=== PATIENT | male | born 1945 | race Caucasian/White ===

== ENCOUNTER → 2018-06-04 | Outpatient (CLI) | payer MEDICARE, OTHER ==
[2018-06-04 16:55] VITALS: BP 122/61
== END | disposition home or self-care (01) ==
LOC: Rad HDHVI 13:12
PROVIDERS: ATTEND Internal Medicine Cardiovascular Disease
DX: I08.1 Rheumatic disorders of both mitral and tricuspid valves (principal); J90 Pleural effusion, not elsewhere classified; I27.21 Secondary pulmonary arterial hypertension; I11.0 Hypertensive heart disease with heart failure; I50.33 Acute on chronic diastolic (congestive) heart failure; I48.0 Paroxysmal atrial fibrillation; I25.10 Atherosclerotic heart disease of native coronary artery without angina pectoris; R04.2 Hemoptysis; I31.3 Pericardial effusion (noninflammatory)
CPT/HCPCS: 70491; 85610; 93306; 93701; 94618; G0463

== ENCOUNTER → 2018-06-05 | Outpatient (CLI) | payer MEDICARE, OTHER ==
[2018-06-05 10:00] VITALS: BP 140/60
[2018-06-05 10:30] VITALS: BP 120/64
[2018-06-05 12:35] LABS: Hematocrit 28.1 % (41.0-53.0); Hemoglobin 9.2 g/dL (13.5-17.5); Mean Corpuscular Hemoglobin 31.4 pg (28.0-32.0); Mean Corpuscular Hgb Conc. 32.8 g/dL (32.0-36.0); Mean Corpuscular Volume 95.7 fL (80.0-100.0); Platelet Count (auto) 268 10^3/uL (140-450); Red Blood Cells 2.94 10^6/uL (4.5-5.90); White Blood Cell 14.9 10^3/uL (4.4-10.8)
[2018-06-05 12:49] LABS: Basophils % (manual) 0 (0.0-2.0); Blast Cells 0; INR 1.21 (0.9-1.15); Metamyelocytes % 0; Myelocytes % 0; Partial Thromboplastin Time 38.1 sec (23.78-33.04); Promyelocytes % 0; Prothrombin Time 12.8 sec (9.27-12.13); Reactive Lymphocytes 0; Red Cell Distribution Width 21.1 % (11.8-14.3)
[2018-06-05 12:59] LABS: Albumin 3.8 g/dL (3.4-5.0); BUN/Creatinine Ratio 32.6; Bilirubin, Total 0.8 mg/dL (0.2-1.0); Calcium 9.2 mg/dL (8.5-10.1); Magnesium 2.5 mg/dL (1.6-2.6); Potassium 5.3 mmol/L (3.5-5.1); Total Protein 8.5 g/dL (6.4-8.2)
[2018-06-05 14:26] LABS: Band Neutrophils % (manual) 2; Eosinophils % (manual) 1 (0-7); Lymphocytes % (manual) 15 (10.0-50.0); Monocytes % (manual) 6 (0-12)
== END | disposition home or self-care (01) ==
LOC: CHF HDHVI 10:00
PROVIDERS: ATTEND Internal Medicine Cardiovascular Disease
DX: I11.0 Hypertensive heart disease with heart failure (principal); I50.23 Acute on chronic systolic (congestive) heart failure; C15.9 Malignant neoplasm of esophagus, unspecified; I25.10 Atherosclerotic heart disease of native coronary artery without angina pectoris; K92.2 Gastrointestinal hemorrhage, unspecified; J90 Pleural effusion, not elsewhere classified; I70.0 Atherosclerosis of aorta; I48.91 Unspecified atrial fibrillation; I27.21 Secondary pulmonary arterial hypertension; E11.9 Type 2 diabetes mellitus without complications; E83.40 Disorders of magnesium metabolism, unspecified; R79.1 Abnormal coagulation profile; R60.9 Edema, unspecified; D64.9 Anemia, unspecified
CPT/HCPCS: 36415; 71046; 80053; 82306; 83036; 83735; 83880; 85007; 85027; 85610; 85730; G0463

== ENCOUNTER → 2018-06-13 | Outpatient (CLI) | payer MEDICARE, OTHER ==
[2018-06-13] VITALS (9 sets, daily range): BP systolic 112–135; BP diastolic 55–69
[~2018-06-13] MED LIST: ALBU0.08 INH; ALBUAER3 IN; ALPR1TAB2 PO; CITA-77 PO; CYANOCOBALAMIN (B-12) 1000 MCG/1 ML VIAL IM ONE; CYANOCOBALAMIN (B-12) 1000 MCG/1 ML VIAL ONE; DOBUTamine 1000MCG/ML 250 ML IV ONE; METO-158 PO; METO25TA5 PO; MULTTAB PO; OMEP20TA PO; POM; PRAV20TA3 PO; RIVA20TA PO; RIVSET PO; SODI15SU PO; TIOT17SP IN; TIOTCAP IN
[2018-06-13 12:46] LABS: Hematocrit 27.3 % (41.0-53.0); Hemoglobin 8.7 g/dL (13.5-17.5); Mean Corpuscular Hemoglobin 31.1 pg (28.0-32.0); Mean Corpuscular Hgb Conc. 31.9 g/dL (32.0-36.0); Mean Corpuscular Volume 97.4 fL (80.0-100.0); Platelet Count (auto) 242 10^3/uL (140-450); White Blood Cell 12.7 10^3/uL (4.4-10.8)
[2018-06-13 12:54] LABS: Red Cell Distribution Width 21.9 % (11.8-14.3)
[2018-06-13 12:56] LABS: Blast Cells 0; Promyelocytes % 0; Reactive Lymphocytes 0
[2018-06-13 13:57] LABS: Band Neutrophils % (manual) 8; Basophils % (manual) 1 (0.0-2.0); Eosinophils % (manual) 3 (0-7); Lymphocytes % (manual) 9 (10.0-50.0); Metamyelocytes % 4; Monocytes % (manual) 4 (0-12); Myelocytes % 2
== END | disposition home or self-care (01) ==
LOC: CHF HDHVI 09:11
PROVIDERS: ATTEND Internal Medicine Cardiovascular Disease
DX: I11.0 Hypertensive heart disease with heart failure (principal); I50.23 Acute on chronic systolic (congestive) heart failure; D64.9 Anemia, unspecified; R94.4 Abnormal results of kidney function studies; E87.6 Hypokalemia; E11.9 Type 2 diabetes mellitus without complications; I25.10 Atherosclerotic heart disease of native coronary artery without angina pectoris; I48.0 Paroxysmal atrial fibrillation; J44.9 Chronic obstructive pulmonary disease, unspecified; E78.5 Hyperlipidemia, unspecified; I25.2 Old myocardial infarction; F32.9 Major depressive disorder, single episode, unspecified; E66.01 Morbid (severe) obesity due to excess calories; Z68.41 Body mass index [BMI] 40.0-44.9, adult; Z79.899 Other long term (current) drug therapy; Z87.891 Personal history of nicotine dependence
CPT/HCPCS: 36415; 82565; 83880; 84132; 84520; 85007; 85027; 96365; 96366; 96372; G0463; J1250; J3420

== ENCOUNTER → 2018-06-14 | Outpatient (CLI) | payer MEDICARE, OTHER ==
[2018-06-14] VITALS (8 sets, daily range): BP systolic 116–128; BP diastolic 45–86
[~2018-06-14] MED LIST changes: -ALBU0.08 INH; -ALBUAER3 IN; -CITA-77 PO; -CYANOCOBALAMIN (B-12) 1000 MCG/1 ML VIAL IM ONE; -CYANOCOBALAMIN (B-12) 1000 MCG/1 ML VIAL ONE; +FUROSEMIDE 20 MG/2 ML VIAL ONE; +FUROSEMIDE 40 MG/4 ML VIAL IV ONE; +FUROSEMIDE 40 MG/4 ML VIAL ONE; -METO-158 PO; -MULTTAB PO; -OMEP20TA PO; -RIVSET PO; -TIOT17SP IN
[2018-06-14 12:28] LABS: Hematocrit 27.3 % (41.0-53.0); Hemoglobin 8.7 g/dL (13.5-17.5); Mean Corpuscular Hemoglobin 31.2 pg (28.0-32.0); Mean Corpuscular Hgb Conc. 31.8 g/dL (32.0-36.0); Mean Corpuscular Volume 98.1 fL (80.0-100.0); Platelet Count (auto) 247 10^3/uL (140-450); Red Blood Cells 2.79 10^6/uL (4.5-5.90); White Blood Cell 13.4 10^3/uL (4.4-10.8)
[2018-06-14 12:45] LABS: Potassium 5.4 mmol/L (3.5-5.1)
[2018-06-14 13:17] LABS: Red Cell Distribution Width 22.3 % (11.8-14.3)
[2018-06-14 13:18] LABS: Basophils % (manual) 0 (0.0-2.0); Blast Cells 0; Promyelocytes % 0
[2018-06-14 14:06] LABS: Band Neutrophils % (manual) 2; Eosinophils % (manual) 2 (0-7); Lymphocytes % (manual) 3 (10.0-50.0); Metamyelocytes % 5; Monocytes % (manual) 4 (0-12); Myelocytes % 7; Reactive Lymphocytes 1
== END | disposition home or self-care (01) ==
LOC: Rad HDHVI 10:02
PROVIDERS: ATTEND Internal Medicine Cardiovascular Disease
DX: I11.0 Hypertensive heart disease with heart failure (principal); I50.23 Acute on chronic systolic (congestive) heart failure; I50.33 Acute on chronic diastolic (congestive) heart failure; E87.6 Hypokalemia; R94.4 Abnormal results of kidney function studies; D64.9 Anemia, unspecified; I48.0 Paroxysmal atrial fibrillation; I25.10 Atherosclerotic heart disease of native coronary artery without angina pectoris; C15.9 Malignant neoplasm of esophagus, unspecified; I27.21 Secondary pulmonary arterial hypertension; E11.9 Type 2 diabetes mellitus without complications
CPT/HCPCS: 36415; 82565; 83880; 84132; 84520; 85007; 85027; 93005; 96365; 96366; 96375; G0463; J1250; J1940

== ENCOUNTER → 2018-06-15 | Outpatient (CLI) | payer MEDICARE, OTHER ==
[~2018-06-15] VITALS: Ht 165.1 cm; Wt 116.6 kg
[~2018-06-15] MED LIST changes: +ADENOSINE 90 MG/30 ML INJ IV ONE; -ALPR1TAB2 PO; -DOBUTamine 1000MCG/ML 250 ML IV ONE; -FUROSEMIDE 20 MG/2 ML VIAL ONE; -FUROSEMIDE 40 MG/4 ML VIAL IV ONE; -FUROSEMIDE 40 MG/4 ML VIAL ONE; -METO25TA5 PO; -POM; -PRAV20TA3 PO; -RIVA20TA PO; -SODI15SU PO; -TIOTCAP IN
[2018-06-15 12:49] LABS: Hematocrit 26.3 % (41.0-53.0); Hemoglobin 8.5 g/dL (13.5-17.5); Mean Corpuscular Hemoglobin 31.3 pg (28.0-32.0); Mean Corpuscular Hgb Conc. 32.4 g/dL (32.0-36.0); Mean Corpuscular Volume 96.5 fL (80.0-100.0); Platelet Count (auto) 256 10^3/uL (140-450); Red Blood Cells 2.73 10^6/uL (4.5-5.90); White Blood Cell 12.6 10^3/uL (4.4-10.8)
[2018-06-15 13:10] LABS: BUN/Creatinine Ratio 27.7; Calcium 8.6 mg/dL (8.5-10.1); Potassium 5.1 mmol/L (3.5-5.1)
[2018-06-15 13:29] LABS: Red Cell Distribution Width 22.3 % (11.8-14.3)
[2018-06-15 13:30] LABS: Blast Cells 0; Reactive Lymphocytes 0
[2018-06-15 14:17] LABS: Band Neutrophils % (manual) 6; Basophils % (manual) 1 (0.0-2.0); Eosinophils % (manual) 3 (0-7); Lymphocytes % (manual) 5 (10.0-50.0); Metamyelocytes % 1; Monocytes % (manual) 10 (0-12); Myelocytes % 3; Promyelocytes % 4
== END | disposition home or self-care (01) ==
LOC: Rad HDHVI 10:01
PROVIDERS: ATTEND Internal Medicine Cardiovascular Disease
DX: I11.0 Hypertensive heart disease with heart failure (principal); I50.23 Acute on chronic systolic (congestive) heart failure; D64.9 Anemia, unspecified
CPT/HCPCS: 36415; 78452; 80048; 83880; 85007; 85027; 93005; 96374; 96375; A9500; J0153

== ENCOUNTER → 2018-06-19 | Outpatient (CLI) | payer MEDICARE, OTHER ==
[2018-06-19] VITALS (8 sets, daily range): BP systolic 112–139; BP diastolic 49–73
[~2018-06-19] MED LIST changes: -ADENOSINE 90 MG/30 ML INJ IV ONE; +ALPR1TAB2 PO; +DOBUTamine 1000MCG/ML 250 ML IV ONE; +METO25TA5 PO; +POM; +PRAV20TA3 PO; +RIVA20TA PO; +SODI15SU PO; +TIOTCAP IN
[2018-06-19 12:19] LABS: Hemoglobin 8.2 g/dL (13.5-17.5); Mean Corpuscular Hemoglobin 30.9 pg (28.0-32.0)
[2018-06-19 12:21] LABS: Hematocrit 25.6 % (41.0-53.0); Mean Corpuscular Volume 96.8 fL (80.0-100.0); Platelet Count (auto) 264 10^3/uL (140-450); Red Blood Cells 2.64 10^6/uL (4.5-5.90); White Blood Cell 12.4 10^3/uL (4.4-10.8)
[2018-06-19 12:29] LABS: Red Cell Distribution Width 22.3 % (11.8-14.3)
[2018-06-19 12:30] LABS: Blast Cells 0; Promyelocytes % 0; Reactive Lymphocytes 0
[2018-06-19 12:38] LABS: BUN/Creatinine Ratio 25.5; Calcium 8.7 mg/dL (8.5-10.1); Potassium 4.9 mmol/L (3.5-5.1)
[2018-06-19 13:25] LABS: Band Neutrophils % (manual) 9; Basophils % (manual) 1 (0.0-2.0); Eosinophils % (manual) 5 (0-7); Lymphocytes % (manual) 4 (10.0-50.0); Metamyelocytes % 4; Monocytes % (manual) 9 (0-12); Myelocytes % 4
== END | disposition home or self-care (01) ==
LOC: CHF HDHVI 10:15
PROVIDERS: ATTEND Internal Medicine Cardiovascular Disease
DX: I11.0 Hypertensive heart disease with heart failure (principal); I50.23 Acute on chronic systolic (congestive) heart failure; I50.33 Acute on chronic diastolic (congestive) heart failure; D64.9 Anemia, unspecified; I25.10 Atherosclerotic heart disease of native coronary artery without angina pectoris; C15.9 Malignant neoplasm of esophagus, unspecified; E11.9 Type 2 diabetes mellitus without complications; I48.0 Paroxysmal atrial fibrillation; Z99.81 Dependence on supplemental oxygen
CPT/HCPCS: 36415; 80048; 83880; 85007; 85027; 96365; 96366; G0463; J1250

== ENCOUNTER → 2018-06-21 | Outpatient (CLI) | payer MEDICARE, OTHER ==
[2018-06-21] VITALS (9 sets, daily range): BP systolic 114–131; BP diastolic 58–77
[~2018-06-21] MED LIST changes: +ALBU0.08 INH; +ALBUAER3 IN; +CITA-77 PO; +METO-158 PO; +MULTTAB PO; +OMEP20TA PO; +RIVSET PO; +TIOT17SP IN
[2018-06-21 13:59] LABS: Hematocrit 25.1 % (41.0-53.0); Hemoglobin 8.2 g/dL (13.5-17.5); Mean Corpuscular Hemoglobin 31.9 pg (28.0-32.0); Mean Corpuscular Hgb Conc. 32.6 g/dL (32.0-36.0); Platelet Count (auto) 258 10^3/uL (140-450); Red Blood Cells 2.56 10^6/uL (4.5-5.90); White Blood Cell 12.9 10^3/uL (4.4-10.8)
[2018-06-21 14:00] LABS: Red Cell Distribution Width 22.4 % (11.8-14.3)
[2018-06-21 14:02] LABS: Basophils % (manual) 0 (0.0-2.0); Blast Cells 0; Metamyelocytes % 0; Myelocytes % 0; Promyelocytes % 0; Reactive Lymphocytes 0
[2018-06-21 14:20] LABS: Band Neutrophils % (manual) 19; Eosinophils % (manual) 5 (0-7); Lymphocytes % (manual) 5 (10.0-50.0); Monocytes % (manual) 3 (0-12)
== END | disposition home or self-care (01) ==
LOC: CHF HDHVI 10:08
PROVIDERS: ATTEND Internal Medicine Cardiovascular Disease
DX: D64.9 Anemia, unspecified (principal); I11.0 Hypertensive heart disease with heart failure; I50.43 Acute on chronic combined systolic (congestive) and diastolic (congestive) heart failure; F32.9 Major depressive disorder, single episode, unspecified; I25.10 Atherosclerotic heart disease of native coronary artery without angina pectoris; I48.0 Paroxysmal atrial fibrillation
CPT/HCPCS: 36415; 85007; 85027; 96365; 96366; G0463; J1250

== ENCOUNTER → 2018-06-26 | Outpatient (CLI) | payer MEDICARE, OTHER ==
[2018-06-26] VITALS (8 sets, daily range): BP systolic 104–139; BP diastolic 56–92
[~2018-06-26] MED LIST changes: +DOBUTAMINE IV ONE; +FUROSEMIDE 40 MG/4 ML VIAL IV ONE; +FUROSEMIDE 40 MG/4 ML VIAL ONE; +POTASSIUM CHL 10 Meq TABLET PO ONE; +POTASSIUM CHL 20 Meq TABLET PO ONE
[2018-06-26 12:09] LABS: Hemoglobin 8.7 g/dL (13.5-17.5)
[2018-06-26 12:15] LABS: Calcium 8.7 mg/dL (8.5-10.1)
[2018-06-26 12:19] LABS: Hematocrit 27.5 % (41.0-53.0); Mean Corpuscular Hemoglobin 31.2 pg (28.0-32.0); Mean Corpuscular Hgb Conc. 31.8 g/dL (32.0-36.0); Mean Corpuscular Volume 98.2 fL (80.0-100.0); Platelet Count (auto) 292 10^3/uL (140-450); White Blood Cell 13.3 10^3/uL (4.4-10.8)
[2018-06-26 12:21] LABS: BUN/Creatinine Ratio 27.4
[2018-06-26 12:22] LABS: Red Cell Distribution Width 22.6 % (11.8-14.3)
[2018-06-26 12:23] LABS: Basophils % (manual) 0 (0.0-2.0); Blast Cells 0; Eosinophils % (manual) 0 (0-7); Myelocytes % 0; Promyelocytes % 0; Reactive Lymphocytes 0
[2018-06-26 12:38] LABS: Band Neutrophils % (manual) 4; Lymphocytes % (manual) 1 (10.0-50.0); Metamyelocytes % 2; Monocytes % (manual) 4 (0-12)
== END | disposition home or self-care (01) ==
LOC: CHF HDHVI 10:16
PROVIDERS: ATTEND Internal Medicine Cardiovascular Disease
DX: I11.0 Hypertensive heart disease with heart failure (principal); I50.43 Acute on chronic combined systolic (congestive) and diastolic (congestive) heart failure; D64.9 Anemia, unspecified; J44.9 Chronic obstructive pulmonary disease, unspecified; E78.5 Hyperlipidemia, unspecified; I25.2 Old myocardial infarction; F32.9 Major depressive disorder, single episode, unspecified; E11.9 Type 2 diabetes mellitus without complications; I25.10 Atherosclerotic heart disease of native coronary artery without angina pectoris; I48.0 Paroxysmal atrial fibrillation; E66.01 Morbid (severe) obesity due to excess calories; Z68.41 Body mass index [BMI] 40.0-44.9, adult; Z79.899 Other long term (current) drug therapy; Z87.891 Personal history of nicotine dependence
CPT/HCPCS: 36415; 80048; 83880; 85007; 85027; 96365; 96366; 96375; G0463; J1250; J1940

== ENCOUNTER → 2018-06-28 | Outpatient (CLI) | payer MEDICARE, OTHER ==
[2018-06-28] VITALS (8 sets, daily range): BP systolic 102–139; BP diastolic 40–75
[~2018-06-28] MED LIST changes: -ALBU0.08 INH; -ALBUAER3 IN; -CITA-77 PO; +CYANOCOBALAMIN (B-12) 1000 MCG/1 ML VIAL IM ONE; +CYANOCOBALAMIN (B-12) 1000 MCG/1 ML VIAL ONE; -DOBUTAMINE IV ONE; -FUROSEMIDE 40 MG/4 ML VIAL IV ONE; -FUROSEMIDE 40 MG/4 ML VIAL ONE; +FUROSEMIDE INJECTION 10 ML ONE; +FUROSEMIDE INJECTION 100 MG in SODIUM CHL 0.9% 100 ML IV SCH; -METO-158 PO; -MULTTAB PO; -OMEP20TA PO; -POTASSIUM CHL 10 Meq TABLET PO ONE; -POTASSIUM CHL 20 Meq TABLET PO ONE; -RIVSET PO; -TIOT17SP IN
[2018-06-28 13:52] LABS: Potassium 5.2 mmol/L (3.5-5.1)
== END | disposition home or self-care (01) ==
LOC: CHF HDHVI 10:11
PROVIDERS: ATTEND Internal Medicine Cardiovascular Disease
DX: I50.9 Heart failure, unspecified (principal); E87.6 Hypokalemia; R94.4 Abnormal results of kidney function studies
CPT/HCPCS: 36415; 82565; 83880; 84132; 84520; J1250; J1940; J3420

== ENCOUNTER → 2018-06-29 | Outpatient (CLI) | payer MEDICARE, OTHER ==
[~2018-06-29] MED LIST changes: -CYANOCOBALAMIN (B-12) 1000 MCG/1 ML VIAL IM ONE; -CYANOCOBALAMIN (B-12) 1000 MCG/1 ML VIAL ONE; -DOBUTamine 1000MCG/ML 250 ML IV ONE; -FUROSEMIDE INJECTION 10 ML ONE; -FUROSEMIDE INJECTION 100 MG in SODIUM CHL 0.9% 100 ML IV SCH
[2018-06-29 10:00] VITALS: BP 114/40
[2018-06-29 10:07] LABS: Hemoglobin 8.1 g/dL (13.5-17.5); Red Blood Cells 2.63 10^6/uL (4.5-5.90)
[2018-06-29 10:09] LABS: Hematocrit 25.2 % (41.0-53.0); Mean Corpuscular Hemoglobin 30.9 pg (28.0-32.0); Mean Corpuscular Hgb Conc. 32.2 g/dL (32.0-36.0); Mean Corpuscular Volume 95.9 fL (80.0-100.0); Platelet Count (auto) 304 10^3/uL (140-450); White Blood Cell 12.7 10^3/uL (4.4-10.8)
[2018-06-29 10:19] LABS: Basophils % (manual) 0 (0.0-2.0); Blast Cells 0; Promyelocytes % 0; Reactive Lymphocytes 0
[2018-06-29 10:52] LABS: Potassium 4.7 mmol/L (3.5-5.1)
[2018-06-29 11:33] LABS: Band Neutrophils % (manual) 4; Eosinophils % (manual) 3 (0-7); Lymphocytes % (manual) 6 (10.0-50.0); Metamyelocytes % 1; Monocytes % (manual) 3 (0-12); Myelocytes % 4
[2018-06-29 11:35] VITALS: BP 147/75
== END | disposition home or self-care (01) ==
LOC: CHF HDHVI 09:10
PROVIDERS: ATTEND Internal Medicine Cardiovascular Disease
DX: I11.0 Hypertensive heart disease with heart failure (principal); I50.9 Heart failure, unspecified; D64.9 Anemia, unspecified; R94.4 Abnormal results of kidney function studies; E87.6 Hypokalemia; E66.01 Morbid (severe) obesity due to excess calories; C15.9 Malignant neoplasm of esophagus, unspecified; F32.9 Major depressive disorder, single episode, unspecified
CPT/HCPCS: 36415; 82565; 83880; 84132; 84520; 85007; 85027; 93005; G0463

== ENCOUNTER → 2018-07-02 | Outpatient (CLI) | payer MEDICARE, OTHER ==
[2018-07-02] VITALS (7 sets, daily range): BP systolic 105–139; BP diastolic 56–79
[~2018-07-02] VITALS: Ht 30.5 cm; Wt 0.5 kg
[~2018-07-02] MED LIST changes: +ALBU0.08 INH; +ALBUAER3 IN; +CITA-77 PO; +DOBUTamine 1000MCG/ML 250 ML IV ONE; +FUROSEMIDE INJECTION 10 ML ONE; +FUROSEMIDE INJECTION 100 MG in SODIUM CHL 0.9% 100 ML IV SCH; +METO-158 PO; +MULTTAB PO; +OMEP20TA PO; +RIVSET PO; +TIOT17SP IN
[2018-07-02 12:38] LABS: Potassium 4.8 mmol/L (3.5-5.1)
[2018-07-02 12:40] LABS: Hemoglobin 8.4 g/dL (13.5-17.5)
[2018-07-02 12:42] LABS: BUN/Creatinine Ratio 27.7; Calcium 8.7 mg/dL (8.5-10.1)
[2018-07-02 12:43] LABS: Hematocrit 25.9 % (41.0-53.0); Mean Corpuscular Hemoglobin 32.6 pg (28.0-32.0); Mean Corpuscular Hgb Conc. 32.5 g/dL (32.0-36.0); Mean Corpuscular Volume 100.4 fL (80.0-100.0); Platelet Count (auto) 298 10^3/uL (140-450); Red Blood Cells 2.58 10^6/uL (4.5-5.90); White Blood Cell 16.4 10^3/uL (4.4-10.8)
[2018-07-02 12:55] LABS: Basophils % (manual) 0 (0.0-2.0); Blast Cells 0; Promyelocytes % 0; Reactive Lymphocytes 0
[2018-07-02 13:20] LABS: INR 1.53 (0.9-1.15); Partial Thromboplastin Time 42.9 sec (23.78-33.04)
[2018-07-02 17:42] LABS: Band Neutrophils % (manual) 7; Eosinophils % (manual) 4 (0-7); Lymphocytes % (manual) 7 (10.0-50.0); Metamyelocytes % 1; Monocytes % (manual) 6 (0-12); Myelocytes % 5
== END | disposition home or self-care (01) ==
LOC: Rad HDHVI 09:22
PROVIDERS: ATTEND Internal Medicine Cardiovascular Disease
DX: I11.0 Hypertensive heart disease with heart failure (principal); I50.43 Acute on chronic combined systolic (congestive) and diastolic (congestive) heart failure; D51.9 Vitamin B12 deficiency anemia, unspecified; R79.1 Abnormal coagulation profile; I70.0 Atherosclerosis of aorta; I25.10 Atherosclerotic heart disease of native coronary artery without angina pectoris; J44.9 Chronic obstructive pulmonary disease, unspecified; I42.0 Dilated cardiomyopathy; I48.0 Paroxysmal atrial fibrillation; E83.40 Disorders of magnesium metabolism, unspecified; F32.9 Major depressive disorder, single episode, unspecified; E66.01 Morbid (severe) obesity due to excess calories; K92.2 Gastrointestinal hemorrhage, unspecified; R94.4 Abnormal results of kidney function studies; J90 Pleural effusion, not elsewhere classified; Z85.01 Personal history of malignant neoplasm of esophagus; Z79.899 Other long term (current) drug therapy; E11.9 Type 2 diabetes mellitus without complications; Z68.41 Body mass index [BMI] 40.0-44.9, adult; Z01.812 Encounter for preprocedural laboratory examination
CPT/HCPCS: 36415; 71046; 80048; 83880; 85007; 85027; 85610; 85730; 96365; 96366; 96368; G0463; J1250; J1940

== ENCOUNTER → 2018-07-04 | Outpatient (CLI) | payer MEDICARE, OTHER ==
[2018-07-04] VITALS (8 sets, daily range): BP systolic 102–125; BP diastolic 45–64
[~2018-07-04] MED LIST changes: +FUROSEMIDE 40 MG/4 ML VIAL IV ONE; -FUROSEMIDE INJECTION 100 MG in SODIUM CHL 0.9% 100 ML IV SCH; +MILRINONE 20MG/100ML 0 ML IV ONE
[2018-07-04] MEDS: DOBUTamine 1000MCG/ML 250 ML IV SCH ×2 (09:29→10:46)
[2018-07-04 12:20] LABS: BUN/Creatinine Ratio 29.2; Calcium 8.7 mg/dL (8.5-10.1); Magnesium 2.2 mg/dL (1.6-2.6); Potassium 4.5 mmol/L (3.5-5.1)
== END | disposition home or self-care (01) ==
LOC: CHF HDHVI 09:22
PROVIDERS: ATTEND Internal Medicine Cardiovascular Disease
DX: D51.9 Vitamin B12 deficiency anemia, unspecified (principal); I11.0 Hypertensive heart disease with heart failure; I50.43 Acute on chronic combined systolic (congestive) and diastolic (congestive) heart failure; E83.40 Disorders of magnesium metabolism, unspecified; I42.0 Dilated cardiomyopathy; E11.9 Type 2 diabetes mellitus without complications; J44.9 Chronic obstructive pulmonary disease, unspecified; I50.23 Acute on chronic systolic (congestive) heart failure; E66.01 Morbid (severe) obesity due to excess calories; I25.2 Old myocardial infarction; I25.10 Atherosclerotic heart disease of native coronary artery without angina pectoris; I70.0 Atherosclerosis of aorta; E78.5 Hyperlipidemia, unspecified; E87.6 Hypokalemia; F32.9 Major depressive disorder, single episode, unspecified; I48.0 Paroxysmal atrial fibrillation; J90 Pleural effusion, not elsewhere classified; G47.30 Sleep apnea, unspecified; K92.2 Gastrointestinal hemorrhage, unspecified; Z85.01 Personal history of malignant neoplasm of esophagus; Z88.1 Allergy status to other antibiotic agents; Z87.891 Personal history of nicotine dependence; Z68.41 Body mass index [BMI] 40.0-44.9, adult; Z79.899 Other long term (current) drug therapy
CPT/HCPCS: 36415; 80048; 82607; 83735; 83880; 96365; 96366; 96375; G0463; J1250; J1940

== ENCOUNTER 2018-07-05 09:12 | Day surgery (SDC) | payer MEDICARE, OTHER ==
[~2018-07-05] VITALS: Ht 165.1 cm; Wt 119.7 kg
[~2018-07-05 09:12] MED LIST changes: -ALBU0.08 INH; -ALBUAER3 IN; -CITA-77 PO; -DOBUTamine 1000MCG/ML 250 ML IV ONE; -FUROSEMIDE 40 MG/4 ML VIAL IV ONE; -FUROSEMIDE INJECTION 10 ML ONE; -METO-158 PO; -MILRINONE 20MG/100ML 0 ML IV ONE; -MULTTAB PO; -OMEP20TA PO; -RIVSET PO; -TIOT17SP IN
[2018-07-05] MEDS ORDERED: LIDOCAINE 2%HCL (LOCAL ANESTH.) INJ 10ml MDV ONE ×2 (09:58→10:22)
[2018-07-05] MEDS ORDERED: IODIXANOL 320MG/ML 100ML BTL IV ONE (09:59)
[2018-07-05] MEDS ORDERED: SODIUM CHL 0.9% 0 ML ONE (10:00)
[2018-07-05] MEDS ORDERED: fentaNYL CITRATE 100 MCG/2 ML VL ONE (10:00)
[2018-07-05] MEDS ORDERED: MIDAZOLAM HCL 1MG/1ML-2 ML VIAL ONE (10:00)
[2018-07-05] MEDS ORDERED: ANGIOMAX 250 MG VIAL IV ONE (10:00)
== END 2018-07-05 14:20 | disposition home or self-care (01) ==
LOC: CATH 09:12
PROVIDERS: ATTEND Internal Medicine Cardiovascular Disease
DX: I42.0 Dilated cardiomyopathy (principal); I27.20 Pulmonary hypertension, unspecified; E66.01 Morbid (severe) obesity due to excess calories; G47.30 Sleep apnea, unspecified; E11.9 Type 2 diabetes mellitus without complications; I11.0 Hypertensive heart disease with heart failure; E78.5 Hyperlipidemia, unspecified; I25.2 Old myocardial infarction; J44.9 Chronic obstructive pulmonary disease, unspecified; I46.9 Cardiac arrest, cause unspecified; Z88.1 Allergy status to other antibiotic agents; Z68.41 Body mass index [BMI] 40.0-44.9, adult; Z87.891 Personal history of nicotine dependence; Z79.899 Other long term (current) drug therapy
CPT/HCPCS: 73562; 93460; 99152; 99153; A6257; C1751; C1760; C1894; J1644; J2001; J2250; J3010; J7030; Q9967

== ENCOUNTER 2018-07-09 16:22 | Inpatient (IN) | payer MEDICARE, OTHER ==
[~2018-07-09] VITALS: Ht 165.1 cm; Wt 127.8 kg
[~2018-07-09 16:22] MED LIST changes: -ALBU0.08 INH; -ALBUAER3 IN; -CITA-77 PO; -DOBUTamine 1000MCG/ML 250 ML IV ONE; -FUROSEMIDE 40 MG/4 ML VIAL IV ONE; -FUROSEMIDE 40 MG/4 ML VIAL ONE; -METO-158 PO; -MULTTAB PO; -OMEP20TA PO; -RIVSET PO; -TIOT17SP IN
[2018-07-09] MEDS ORDERED: DOBUTamine 1000MCG/ML 250 ML IV SCH (18:30)
[2018-07-09] MEDS ORDERED: DIGOXIN 0.25 MG TAB PO ONE (18:30)
[2018-07-09] MEDS ORDERED: FUROSEMIDE INJECTION 250 MG in SODIUM CHL 0.9% 225 ML IV SCH ×2 (18:30→19:15)
[2018-07-09] MEDS ORDERED: NITROGLYCERIN 0.4 MG SL TAB SL PRN (19:15)
[2018-07-09] MEDS ORDERED: MORPHINE SULFATE 4 MG/ML SYR/VIAL IV PRN (19:15)
[2018-07-09] MEDS ORDERED: CITA-77 PO (19:32)
[2018-07-09] MEDS ORDERED: RIVSET PO (20:13)
[2018-07-09] MEDS ORDERED: METO-158 PO (20:14)
[2018-07-09] MEDS: SILDENAFIL CITRATE 20 MG TAB PO SCH (21:33)
[2018-07-09 22:00] VITALS: BP 102/53
[2018-07-09] MEDS: RIVAROXABAN 10 MG TAB PO SCH (22:39)
[2018-07-09] MEDS: METOPROLOL TARTRATE 50 MG TAB PO SCH (22:47)
[2018-07-09] MEDS: DOBUTamine 1000MCG/ML 250 ML IV SCH (22:49)
[2018-07-10] MEDS: ALPRAZolam 0.5 MG TAB PO PRN ×2 (00:03→21:48)
[2018-07-10] MEDS ORDERED: OMEP20TA PO (04:53)
[2018-07-10] MEDS ORDERED: ALBUAER3 IN (04:53)
[2018-07-10] MEDS ORDERED: MULTTAB PO (04:53)
[2018-07-10] MEDS ORDERED: ALBU0.08 INH (04:57)
[2018-07-10] MEDS ORDERED: TIOT17SP IN (04:57)
[2018-07-10 05:00] VITALS: BP 110/62
[2018-07-10] MEDS: DOBUTamine 1000MCG/ML 250 ML IV SCH ×3 (05:28→23:26)
[2018-07-10] MEDS: SILDENAFIL CITRATE 20 MG TAB PO SCH ×3 (08:06→20:06)
[2018-07-10 09:00] VITALS: BP 94/60
[2018-07-10] MEDS: DIGOXIN 0.125 MG TAB PO SCH (10:43)
[2018-07-10] MEDS: CITALOPRAM HYDROBR 20 MG TAB PO SCH (10:44)
[2018-07-10] MEDS: PANTOPRAZOLE 40 MG TAB PO SCH (10:44)
[2018-07-10] MEDS: METOPROLOL TARTRATE 50 MG TAB PO SCH ×2 (10:51→21:47)
[2018-07-10 13:00] VITALS: BP 109/57
[2018-07-10 17:00] VITALS: BP 101/57
[2018-07-10] MEDS: RIVAROXABAN 10 MG TAB PO SCH (18:38)
[2018-07-10] MEDS: FUROSEMIDE INJECTION 250 MG in D5W 5% 225 ML IV SCH (21:47)
[2018-07-10 22:00] VITALS: BP 113/53
[2018-07-11] VITALS (7 sets, daily range): BP systolic 104–125; BP diastolic 50–81
[2018-07-11] MEDS: DOBUTamine 1000MCG/ML 250 ML IV SCH ×3 (05:42→18:01)
[2018-07-11] MEDS: SILDENAFIL CITRATE 20 MG TAB PO SCH ×3 (09:33→20:14)
[2018-07-11] MEDS: CITALOPRAM HYDROBR 20 MG TAB PO SCH (09:33)
[2018-07-11] MEDS: DIGOXIN 0.125 MG TAB PO SCH (09:33)
[2018-07-11] MEDS: METOPROLOL TARTRATE 50 MG TAB PO SCH ×2 (09:34→21:38)
[2018-07-11] MEDS: PANTOPRAZOLE 40 MG TAB PO SCH (09:34)
[2018-07-11 15:34] LABS: INR 1.6 (0.9-1.15); Prothrombin Time 16.7 sec (9.27-12.13)
[2018-07-11 16:04] LABS: Basophils # (auto) 0.1 uL; Basophils % (auto) 0.4 % (0.0-2.0); Eosinophils # (auto) 0.2 uL; Lymphocytes # (auto) 0.3 uL; Neutrophils # (auto) 12.4 uL
[2018-07-11 16:06] LABS: Eosinophils % (auto) 1.8 % (0.0-7.0); Hematocrit 24.1 % (41.0-53.0); Hemoglobin 7.6 g/dL (13.5-17.5); Lymphocytes % (auto) 2.4 % (10.0-50.0); Mean Corpuscular Hemoglobin 30.9 pg (28.0-32.0); Mean Corpuscular Hgb Conc. 31.7 g/dL (32.0-36.0); Mean Corpuscular Volume 97.5 fL (80.0-100.0); Monocytes # (auto) 1.2 uL; Monocytes % (auto) 8.4 % (0.0-12.0); Platelet Count (auto) 255 10^3/uL (140-450); Red Blood Cells 2.47 10^6/uL (4.5-5.90); White Blood Cell 14.2 10^3/uL (4.4-10.8)
[2018-07-11 16:18] LABS: Red Cell Distribution Width 22.4 % (11.8-14.3)
[2018-07-11] MEDS ORDERED: LIDOCAINE 1% (LOCAL ANESTH.) PF 5ml SDV ID ONE (17:30)
[2018-07-11] MEDS: RIVAROXABAN 10 MG TAB PO SCH (18:02)
[2018-07-11] MEDS: FUROSEMIDE INJECTION 250 MG in D5W 5% 225 ML IV SCH (18:02)
[2018-07-11] MEDS: ALPRAZolam 0.5 MG TAB PO PRN (21:38)
[2018-07-11] MEDS: SODIUM CHLOR 0.9% PF (SALINE LOCK) 10ML VIAL/SYR IV SCH (21:38)
[2018-07-12] MEDS: DOBUTamine 1000MCG/ML 250 ML IV SCH ×5 (02:35→22:01)
[2018-07-12 05:00] VITALS: BP 102/42
[2018-07-12] MEDS: SILDENAFIL CITRATE 20 MG TAB PO SCH ×3 (08:37→19:57)
[2018-07-12 09:09] VITALS: BP 103/56
[2018-07-12] MEDS: METOPROLOL TARTRATE 50 MG TAB PO SCH ×2 (10:00→22:00)
[2018-07-12] MEDS: PANTOPRAZOLE 40 MG TAB PO SCH (12:55)
[2018-07-12] MEDS: CITALOPRAM HYDROBR 20 MG TAB PO SCH (12:55)
[2018-07-12] MEDS: DIGOXIN 0.125 MG TAB PO SCH (12:55)
[2018-07-12] MEDS: SODIUM CHLOR 0.9% PF (SALINE LOCK) 10ML VIAL/SYR IV SCH ×2 (12:55→22:00)
[2018-07-12 13:03] VITALS: BP 101/45
[2018-07-12] MEDS ORDERED: cefTRIAXone 1GM/50ML D5W 50 ML IV ONE (16:00)
[2018-07-12] MEDS: FUROSEMIDE INJECTION 250 MG in D5W 5% 225 ML IV SCH (16:30)
[2018-07-12 17:01] VITALS: BP 113/67
[2018-07-12 18:02] LABS: BUN/Creatinine Ratio 31.4; Calcium 7.9 mg/dL (8.5-10.1); Potassium 3.5 mmol/L (3.5-5.1)
[2018-07-12] MEDS: RIVAROXABAN 10 MG TAB PO SCH (18:19)
[2018-07-12 22:00] VITALS: BP 107/54
[2018-07-13] VITALS (8 sets, daily range): BP systolic 95–133; BP diastolic 46–61
[2018-07-13] MEDS: DOBUTamine 1000MCG/ML 250 ML IV SCH ×3 (06:35→20:40)
[2018-07-13] MEDS: SODIUM CHLOR 0.9% PF (SALINE LOCK) 10ML VIAL/SYR IV SCH ×2 (09:59→20:44)
[2018-07-13] MEDS: SILDENAFIL CITRATE 20 MG TAB PO SCH ×3 (09:59→20:43)
[2018-07-13] MEDS: CITALOPRAM HYDROBR 20 MG TAB PO SCH (09:59)
[2018-07-13] MEDS: METOPROLOL TARTRATE 50 MG TAB PO SCH ×2 (10:00→20:44)
[2018-07-13] MEDS: PANTOPRAZOLE 40 MG TAB PO SCH (10:00)
[2018-07-13] MEDS: DIGOXIN 0.125 MG TAB PO SCH (10:00)
[2018-07-13] MEDS: FUROSEMIDE INJECTION 250 MG in D5W 5% 225 ML IV SCH ×2 (16:30→20:40)
[2018-07-13] MEDS: cefTRIAXone 1GM/50ML D5W 50 ML IV SCH (17:53)
[2018-07-13] MEDS: RIVAROXABAN 10 MG TAB PO SCH (17:53)
[2018-07-13] MEDS: ALPRAZolam 0.5 MG TAB PO PRN (20:47)
[2018-07-14] MEDS: DOBUTamine 1000MCG/ML 250 ML IV SCH ×3 (03:28→17:23)
[2018-07-14 05:29] VITALS: BP 105/53
[2018-07-14 08:00] VITALS: BP 104/53
[2018-07-14] MEDS: SILDENAFIL CITRATE 20 MG TAB PO SCH ×3 (08:10→22:00)
[2018-07-14 08:56] VITALS: BP 104/53
[2018-07-14] MEDS: DIGOXIN 0.125 MG TAB PO SCH (09:43)
[2018-07-14] MEDS: PANTOPRAZOLE 40 MG TAB PO SCH (09:44)
[2018-07-14] MEDS: CITALOPRAM HYDROBR 20 MG TAB PO SCH (09:45)
[2018-07-14] MEDS: METOPROLOL TARTRATE 50 MG TAB PO SCH ×2 (09:45→22:01)
[2018-07-14] MEDS: SODIUM CHLOR 0.9% PF (SALINE LOCK) 10ML VIAL/SYR IV SCH ×2 (10:59→21:59)
[2018-07-14] MEDS ORDERED: EPOETIN ALFA 10,000 UNIT/1 ML VIAL SC ONE (12:30)
[2018-07-14 13:17] LABS: White Blood Cell 11.5 10^3/uL (4.4-10.8)
[2018-07-14 13:18] LABS: Hematocrit 23.8 % (41.0-53.0); Hemoglobin 7.6 g/dL (13.5-17.5); Mean Corpuscular Hemoglobin 30.6 pg (28.0-32.0); Mean Corpuscular Hgb Conc. 31.8 g/dL (32.0-36.0); Mean Corpuscular Volume 96.3 fL (80.0-100.0); Platelet Count (auto) 250 10^3/uL (140-450); Red Blood Cells 2.47 10^6/uL (4.5-5.90)
[2018-07-14 13:19] LABS: Red Cell Distribution Width 22.1 % (11.8-14.3)
[2018-07-14 13:21] VITALS: BP 113/49
[2018-07-14 13:21] LABS: Basophils % (manual) 0 (0.0-2.0); Blast Cells 0; Promyelocytes % 0; Reactive Lymphocytes 0
[2018-07-14 13:32] LABS: Albumin 3.2 g/dL (3.4-5.0); BUN/Creatinine Ratio 29.4; Calcium 8.4 mg/dL (8.5-10.1); Potassium 3.7 mmol/L (3.5-5.1)
[2018-07-14 13:41] LABS: Bilirubin, Total 0.8 mg/dL (0.2-1.0); Total Protein 7.8 g/dL (6.4-8.2)
[2018-07-14 14:17] LABS: Band Neutrophils % (manual) 3; Eosinophils % (manual) 2 (0-7); Lymphocytes % (manual) 5 (10.0-50.0); Metamyelocytes % 3; Monocytes % (manual) 8 (0-12); Myelocytes % 3
[2018-07-14] MEDS: cefTRIAXone 1GM/50ML D5W 50 ML IV SCH (17:23)
[2018-07-14] MEDS: RIVAROXABAN 10 MG TAB PO SCH (17:24)
[2018-07-14 17:28] VITALS: BP 107/52
[2018-07-14 21:43] VITALS: BP 118/63
[2018-07-14] MEDS: ALPRAZolam 0.5 MG TAB PO PRN (22:01)
[2018-07-15] VITALS (8 sets, daily range): BP systolic 83–118; BP diastolic 39–74
[2018-07-15] MEDS: DOBUTamine 1000MCG/ML 250 ML IV SCH ×4 (06:31→20:52)
[2018-07-15] MEDS: SILDENAFIL CITRATE 20 MG TAB PO SCH ×3 (09:01→20:49)
[2018-07-15] MEDS: METOPROLOL TARTRATE 50 MG TAB PO SCH ×2 (09:26→20:50)
[2018-07-15] MEDS: CITALOPRAM HYDROBR 20 MG TAB PO SCH (10:11)
[2018-07-15] MEDS: PANTOPRAZOLE 40 MG TAB PO SCH (10:11)
[2018-07-15] MEDS: DIGOXIN 0.125 MG TAB PO SCH (10:12)
[2018-07-15] MEDS: SODIUM CHLOR 0.9% PF (SALINE LOCK) 10ML VIAL/SYR IV SCH ×2 (10:13→22:00)
[2018-07-15] MEDS ORDERED: ACETAMINOPHEN 500 MG TAB PO ONE (13:00)
[2018-07-15] MEDS: FUROSEMIDE INJECTION 250 MG in D5W 5% 225 ML IV SCH (17:46)
[2018-07-15] MEDS: RIVAROXABAN 10 MG TAB PO SCH (17:46)
[2018-07-15] MEDS: cefTRIAXone 1GM/50ML D5W 50 ML IV SCH (17:46)
[2018-07-15] MEDS: ALPRAZolam 0.5 MG TAB PO PRN (20:50)
[2018-07-16] VITALS (11 sets, daily range): BP systolic 90–161; BP diastolic 40–59
[2018-07-16] MEDS: DOBUTamine 1000MCG/ML 250 ML IV SCH ×4 (03:20→23:50)
[2018-07-16 05:54] LABS: Hemoglobin 8.7 g/dL (13.5-17.5); Mean Corpuscular Hemoglobin 30.2 pg (28.0-32.0); Mean Corpuscular Hgb Conc. 32.4 g/dL (32.0-36.0); Mean Corpuscular Volume 93.2 fL (80.0-100.0); Platelet Count (auto) 245 10^3/uL (140-450); White Blood Cell 12.1 10^3/uL (4.4-10.8)
[2018-07-16 06:27] LABS: Basophils % (manual) 0 (0.0-2.0); Blast Cells 0; Promyelocytes % 0; Reactive Lymphocytes 0
[2018-07-16 06:31] LABS: Potassium 3.6 mmol/L (3.5-5.1)
[2018-07-16 06:47] LABS: BUN/Creatinine Ratio 29.1; Calcium 8.3 mg/dL (8.5-10.1)
[2018-07-16] MEDS: SILDENAFIL CITRATE 20 MG TAB PO SCH ×3 (08:44→20:41)
[2018-07-16] MEDS: METOPROLOL TARTRATE 50 MG TAB PO SCH ×2 (10:43→21:29)
[2018-07-16] MEDS: CITALOPRAM HYDROBR 20 MG TAB PO SCH (10:43)
[2018-07-16] MEDS: PANTOPRAZOLE 40 MG TAB PO SCH (10:44)
[2018-07-16] MEDS: DIGOXIN 0.125 MG TAB PO SCH (10:44)
[2018-07-16] MEDS: SODIUM CHLOR 0.9% PF (SALINE LOCK) 10ML VIAL/SYR IV SCH ×2 (10:45→21:27)
[2018-07-16 11:59] LABS: Band Neutrophils % (manual) 6; Eosinophils % (manual) 1 (0-7); Lymphocytes % (manual) 2 (10.0-50.0); Metamyelocytes % 1; Monocytes % (manual) 10 (0-12); Myelocytes % 4
[2018-07-16] MEDS: RIVAROXABAN 10 MG TAB PO SCH (18:12)
[2018-07-16] MEDS: cefTRIAXone 1GM/50ML D5W 50 ML IV SCH (18:13)
[2018-07-16] MEDS: FUROSEMIDE INJECTION 250 MG in D5W 5% 225 ML IV SCH (18:14)
[2018-07-16] MEDS: ALPRAZolam 0.5 MG TAB PO PRN (21:28)
[2018-07-17 03:07] VITALS: BP 111/40
[2018-07-17 05:00] VITALS: BP 118/61
[2018-07-17] MEDS: DOBUTamine 1000MCG/ML 250 ML IV SCH ×3 (06:17→21:13)
[2018-07-17] MEDS: SILDENAFIL CITRATE 20 MG TAB PO SCH ×3 (08:00→20:06)
[2018-07-17] MEDS: SODIUM CHLOR 0.9% PF (SALINE LOCK) 10ML VIAL/SYR IV SCH ×2 (08:00→22:17)
[2018-07-17] MEDS: CITALOPRAM HYDROBR 20 MG TAB PO SCH (09:34)
[2018-07-17] MEDS: DIGOXIN 0.125 MG TAB PO SCH (09:39)
[2018-07-17] MEDS: PANTOPRAZOLE 40 MG TAB PO SCH (09:40)
[2018-07-17] MEDS: METOPROLOL TARTRATE 50 MG TAB PO SCH ×2 (09:40→22:17)
[2018-07-17] MEDS ORDERED: IOHEXOL 350 MG/ML 100ML IJ ONE (11:35)
[2018-07-17] MEDS ORDERED: LIDOCAINE 2%HCL (LOCAL ANESTH.) INJ 20ML MDV ONE (11:35)
[2018-07-17 12:15] LABS: INR 1.38 (0.9-1.15); Prothrombin Time 14.5 sec (9.27-12.13)
[2018-07-17] MEDS ORDERED: ceFAZolin 1GM/50ML 50 ML IV ONE (12:45)
[2018-07-17] MEDS ORDERED: fentaNYL CITRATE 100 MCG/2 ML VL ONE (13:12)
[2018-07-17] MEDS ORDERED: MIDAZOLAM HCL 1MG/1ML-2 ML VIAL ONE (13:12)
[2018-07-17] MEDS ORDERED: ceFAZolin 1GM VL ONE (13:18)
[2018-07-17 13:20] VITALS: BP 132/69
[2018-07-17] MEDS ORDERED: LIDOCAINE 2%HCL (LOCAL ANESTH.) INJ 10ml MDV ONE (13:33)
[2018-07-17] MEDS ORDERED: FUROSEMIDE 20 MG/2 ML VIAL ONE (14:23)
[2018-07-17] MEDS ORDERED: GELATIN 1 SPONGE SIZE 100 TOP ONE (14:36)
[2018-07-17] MEDS ORDERED: ACETAMINOPHEN 325 MG TAB PO PRN (15:15)
[2018-07-17] MEDS ORDERED: GENTAMICIN SULFATE 160 MG in D5W 5% 100 ML IV ONE (15:30)
[2018-07-17] MEDS: FUROSEMIDE INJECTION 250 MG in D5W 5% 225 ML IV SCH (16:30)
[2018-07-17] MEDS: cefTRIAXone 1GM/50ML D5W 50 ML IV SCH (18:50)
[2018-07-17] MEDS: HYDROcodone-ACET 5/325MG TAB PO PRN (20:05)
[2018-07-17 22:00] VITALS: BP 105/52
[2018-07-17] MEDS: ALPRAZolam 0.5 MG TAB PO PRN (22:17)
[2018-07-18] MEDS: HYDROcodone-ACET 5/325MG TAB PO PRN ×4 (02:13→21:53)
[2018-07-18] MEDS: DOBUTamine 1000MCG/ML 250 ML IV SCH ×4 (02:13→23:40)
[2018-07-18 05:27] VITALS: BP 113/52
[2018-07-18 08:00] VITALS: BP 96/43
[2018-07-18] MEDS: SILDENAFIL CITRATE 20 MG TAB PO SCH ×3 (08:13→20:10)
[2018-07-18 09:00] VITALS: BP 96/43
[2018-07-18] MEDS: METOPROLOL TARTRATE 50 MG TAB PO SCH ×2 (10:00→21:52)
[2018-07-18] MEDS: PANTOPRAZOLE 40 MG TAB PO SCH (10:08)
[2018-07-18] MEDS: DIGOXIN 0.125 MG TAB PO SCH (10:08)
[2018-07-18] MEDS: CITALOPRAM HYDROBR 20 MG TAB PO SCH (10:08)
[2018-07-18] MEDS: SODIUM CHLOR 0.9% PF (SALINE LOCK) 10ML VIAL/SYR IV SCH ×2 (10:15→21:52)
[2018-07-18 13:09] VITALS: BP 109/50
[2018-07-18] MEDS ORDERED: POTASSIUM CHL 20 Meq TABLET PO ONE (14:30)
[2018-07-18] MEDS ORDERED: METOLAZONE 5 MG TAB PO ONE (14:30)
[2018-07-18 15:22] LABS: Basophils # (auto) 0.1 uL; Eosinophils # (auto) 0.3 uL; Hemoglobin 7.5 g/dL (13.5-17.5); Monocytes # (auto) 1.2 uL; Neutrophils # (auto) 10.7 uL
[2018-07-18 15:27] LABS: Basophils % (auto) 0.9 % (0.0-2.0); Eosinophils % (auto) 2.2 % (0.0-7.0); Hematocrit 23.2 % (41.0-53.0); Lymphocytes # (auto) 0.4 uL; Lymphocytes % (auto) 3.1 % (10.0-50.0); Mean Corpuscular Hemoglobin 30.5 pg (28.0-32.0); Mean Corpuscular Hgb Conc. 32.5 g/dL (32.0-36.0); Mean Corpuscular Volume 93.9 fL (80.0-100.0); Monocytes % (auto) 9.2 % (0.0-12.0); Neutrophils % (auto) 84.6 % (37.0-80.0); Platelet Count (auto) 212 10^3/uL (140-450); Red Blood Cells 2.47 10^6/uL (4.5-5.90); White Blood Cell 12.7 10^3/uL (4.4-10.8)
[2018-07-18 15:39] LABS: Albumin 3.1 g/dL (3.4-5.0); Potassium 3.9 mmol/L (3.5-5.1)
[2018-07-18 15:42] LABS: BUN/Creatinine Ratio 27.4; Bilirubin, Total 0.8 mg/dL (0.2-1.0); Total Protein 7.5 g/dL (6.4-8.2)
[2018-07-18 15:43] LABS: Red Cell Distribution Width 22.6 % (11.8-14.3)
[2018-07-18] MEDS: FUROSEMIDE INJECTION 250 MG in D5W 5% 225 ML IV SCH (18:35)
[2018-07-18] MEDS: ALPRAZolam 0.5 MG TAB PO PRN (21:53)
[2018-07-18 22:00] VITALS: BP 111/67
[2018-07-19 05:00] VITALS: BP 105/46
[2018-07-19] MEDS: SILDENAFIL CITRATE 20 MG TAB PO SCH ×3 (07:59→20:06)
[2018-07-19] MEDS: DOBUTamine 1000MCG/ML 250 ML IV SCH ×3 (07:59→20:48)
[2018-07-19 08:00] VITALS: BP 97/44
[2018-07-19 09:00] VITALS: BP 97/44
[2018-07-19] MEDS: METOPROLOL TARTRATE 50 MG TAB PO SCH ×2 (10:00→22:15)
[2018-07-19] MEDS: SODIUM CHLOR 0.9% PF (SALINE LOCK) 10ML VIAL/SYR IV SCH ×2 (10:27→22:15)
[2018-07-19] MEDS: CITALOPRAM HYDROBR 20 MG TAB PO SCH (10:27)
[2018-07-19] MEDS: DIGOXIN 0.125 MG TAB PO SCH (10:27)
[2018-07-19] MEDS: PANTOPRAZOLE 40 MG TAB PO SCH (10:27)
[2018-07-19] MEDS: HYDROcodone-ACET 5/325MG TAB PO PRN ×2 (12:16→18:42)
[2018-07-19 13:00] VITALS: BP 110/50
[2018-07-19 17:00] VITALS: BP 125/44
[2018-07-19] MEDS: FUROSEMIDE INJECTION 250 MG in D5W 5% 225 ML IV SCH (17:29)
[2018-07-19] MEDS: ALPRAZolam 0.5 MG TAB PO PRN (22:15)
[2018-07-20 03:43] VITALS: BP 125/44
[2018-07-20] MEDS: HYDROcodone-ACET 5/325MG TAB PO PRN ×3 (03:51→21:39)
[2018-07-20] MEDS: DOBUTamine 1000MCG/ML 250 ML IV SCH ×3 (03:51→14:36)
[2018-07-20 09:00] VITALS: BP 106/65
[2018-07-20] MEDS: SILDENAFIL CITRATE 20 MG TAB PO SCH ×3 (09:17→19:41)
[2018-07-20] MEDS: SODIUM CHLOR 0.9% PF (SALINE LOCK) 10ML VIAL/SYR IV SCH ×2 (09:35→21:38)
[2018-07-20] MEDS: CITALOPRAM HYDROBR 20 MG TAB PO SCH (09:35)
[2018-07-20] MEDS: PANTOPRAZOLE 40 MG TAB PO SCH (09:35)
[2018-07-20] MEDS: METOPROLOL TARTRATE 50 MG TAB PO SCH ×2 (09:35→21:38)
[2018-07-20] MEDS: DIGOXIN 0.125 MG TAB PO SCH (09:35)
[2018-07-20] MEDS: FUROSEMIDE INJECTION 250 MG in D5W 5% 225 ML IV SCH (14:43)
[2018-07-20 17:00] VITALS: BP 108/68
[2018-07-20] MEDS: TORSEMIDE 20 MG TAB PO SCH (21:38)
[2018-07-20] MEDS: ALPRAZolam 0.5 MG TAB PO PRN (21:39)
[2018-07-20 21:42] VITALS: BP 111/54
[2018-07-21] VITALS (11 sets, daily range): BP systolic 97–116; BP diastolic 42–62
[2018-07-21] MEDS: TORSEMIDE 20 MG TAB PO SCH ×2 (09:15→22:25)
[2018-07-21] MEDS: PANTOPRAZOLE 40 MG TAB PO SCH (09:15)
[2018-07-21] MEDS ORDERED: EPOETIN ALFA 10,000 UNIT/1 ML VIAL IV ONE (09:15)
[2018-07-21] MEDS: SILDENAFIL CITRATE 20 MG TAB PO SCH ×3 (09:16→22:25)
[2018-07-21] MEDS: SODIUM CHLOR 0.9% PF (SALINE LOCK) 10ML VIAL/SYR IV SCH ×2 (09:17→22:26)
[2018-07-21] MEDS: DIGOXIN 0.125 MG TAB PO SCH (09:17)
[2018-07-21] MEDS: METOPROLOL TARTRATE 50 MG TAB PO SCH ×3 (09:17→23:06)
[2018-07-21] MEDS: HYDROcodone-ACET 5/325MG TAB PO PRN ×2 (09:17→22:25)
[2018-07-21] MEDS: CITALOPRAM HYDROBR 20 MG TAB PO SCH (09:17)
[2018-07-21 10:09] LABS: Hematocrit 22.7 % (41.0-53.0); Hemoglobin 7.3 g/dL (13.5-17.5)
[2018-07-22 04:00] VITALS: BP 112/59
[2018-07-22 06:03] LABS: Hematocrit 32.5 % (41.0-53.0); Hemoglobin 10.4 g/dL (13.5-17.5); Mean Corpuscular Hemoglobin 29.5 pg (28.0-32.0); Mean Corpuscular Volume 92.1 fL (80.0-100.0); Platelet Count (auto) 253 10^3/uL (140-450); Red Blood Cells 3.53 10^6/uL (4.5-5.90)
[2018-07-22 06:07] LABS: Red Cell Distribution Width 22.3 % (11.8-14.3)
[2018-07-22 06:08] LABS: Basophils % (manual) 0 (0.0-2.0); Blast Cells 0; Metamyelocytes % 0; Monocytes % (manual) 0 (0-12); Promyelocytes % 0; Reactive Lymphocytes 0
[2018-07-22 06:30] LABS: Albumin 3.7 g/dL (3.4-5.0); Calcium 8.8 mg/dL (8.5-10.1)
[2018-07-22 06:34] LABS: BUN/Creatinine Ratio 27.6; Bilirubin, Total 1.6 mg/dL (0.2-1.0); Total Protein 8.9 g/dL (6.4-8.2)
[2018-07-22 06:48] LABS: Band Neutrophils % (manual) 3; Eosinophils % (manual) 5 (0-7); Lymphocytes % (manual) 2 (10.0-50.0); Myelocytes % 7
[2018-07-22 07:58] VITALS: BP 95/67
[2018-07-22] MEDS: SILDENAFIL CITRATE 20 MG TAB PO SCH ×3 (09:11→20:12)
[2018-07-22] MEDS: SODIUM CHLOR 0.9% PF (SALINE LOCK) 10ML VIAL/SYR IV SCH ×2 (09:11→22:00)
[2018-07-22] MEDS: CITALOPRAM HYDROBR 20 MG TAB PO SCH (09:11)
[2018-07-22] MEDS: DIGOXIN 0.125 MG TAB PO SCH (09:12)
[2018-07-22] MEDS: TORSEMIDE 20 MG TAB PO SCH ×2 (09:12→20:15)
[2018-07-22] MEDS: PANTOPRAZOLE 40 MG TAB PO SCH (09:12)
[2018-07-22] MEDS ORDERED: MAGNESIUM CITRATE SOLUTION 300 ML BTL PO ONE (10:00)
[2018-07-22 11:56] VITALS: BP 117/55
[2018-07-22 16:10] VITALS: BP 101/55
[2018-07-22] MEDS: ALPRAZolam 0.5 MG TAB PO PRN (20:13)
[2018-07-22] MEDS: METOPROLOL TARTRATE 50 MG TAB PO SCH ×2 (20:13→21:13)
[2018-07-22] MEDS: HYDROcodone-ACET 5/325MG TAB PO PRN (20:15)
[2018-07-22 22:00] VITALS: BP 126/62
[2018-07-22 23:30] VITALS: BP 126/62
[2018-07-23 05:30] VITALS: BP 107/53
[2018-07-23 09:00] VITALS: BP 110/54
[2018-07-23] MEDS: TORSEMIDE 20 MG TAB PO SCH (09:07)
[2018-07-23] MEDS: CITALOPRAM HYDROBR 20 MG TAB PO SCH (09:08)
[2018-07-23] MEDS: DIGOXIN 0.125 MG TAB PO SCH (09:08)
[2018-07-23] MEDS: PANTOPRAZOLE 40 MG TAB PO SCH (09:08)
[2018-07-23] MEDS: SILDENAFIL CITRATE 20 MG TAB PO SCH ×2 (09:08→15:17)
[2018-07-23] MEDS: SODIUM CHLOR 0.9% PF (SALINE LOCK) 10ML VIAL/SYR IV SCH (09:09)
[2018-07-23 14:32] VITALS: BP 108/60
[2018-07-23 17:00] VITALS: BP 108/49
== END 2018-07-23 18:59 | disposition home or self-care (01) | DRG 226 ==
LOC: TELE-WESTW 17:55
PROVIDERS: ADMIT Internal Medicine Cardiovascular Disease; ATTEND Internal Medicine Cardiovascular Disease
PROC: 5A09357 Assistance with Respiratory Ventilation, Less than 24 Consecutive Hours, Continuous Positive Airway Pressure (ICD-10-PCS; 2018-07-10)
PROC: 5A09357 Assistance with Respiratory Ventilation, Less than 24 Consecutive Hours, Continuous Positive Airway Pressure (ICD-10-PCS; 2018-07-11)
PROC: 5A09357 Assistance with Respiratory Ventilation, Less than 24 Consecutive Hours, Continuous Positive Airway Pressure (ICD-10-PCS; 2018-07-12)
PROC: 5A09357 Assistance with Respiratory Ventilation, Less than 24 Consecutive Hours, Continuous Positive Airway Pressure (ICD-10-PCS; 2018-07-13)
PROC: 5A09357 Assistance with Respiratory Ventilation, Less than 24 Consecutive Hours, Continuous Positive Airway Pressure (ICD-10-PCS; 2018-07-14)
PROC: 30233N1 Transfusion of Nonautologous Red Blood Cells into Peripheral Vein, Percutaneous Approach (ICD-10-PCS; 2018-07-15)
PROC: 02H63KZ Insertion of Defibrillator Lead into Right Atrium, Percutaneous Approach (ICD-10-PCS; 2018-07-15)
PROC: 0JH609Z Insertion of Cardiac Resynchronization Defibrillator Pulse Generator into Chest Subcutaneous Tissue and Fascia, Open Approach (ICD-10-PCS; principal; 2018-07-17)
PROC: 02HL3KZ Insertion of Defibrillator Lead into Left Ventricle, Percutaneous Approach (ICD-10-PCS; 2018-07-17)
PROC: 02HK3KZ Insertion of Defibrillator Lead into Right Ventricle, Percutaneous Approach (ICD-10-PCS; 2018-07-17)
PROC: 5A09357 Assistance with Respiratory Ventilation, Less than 24 Consecutive Hours, Continuous Positive Airway Pressure (ICD-10-PCS; 2018-07-17)
PROC: 5A09357 Assistance with Respiratory Ventilation, Less than 24 Consecutive Hours, Continuous Positive Airway Pressure (ICD-10-PCS; 2018-07-18)
PROC: 5A09357 Assistance with Respiratory Ventilation, Less than 24 Consecutive Hours, Continuous Positive Airway Pressure (ICD-10-PCS; 2018-07-19)
PROC: 5A09357 Assistance with Respiratory Ventilation, Less than 24 Consecutive Hours, Continuous Positive Airway Pressure (ICD-10-PCS; 2018-07-20)
PROC: 5A09357 Assistance with Respiratory Ventilation, Less than 24 Consecutive Hours, Continuous Positive Airway Pressure (ICD-10-PCS; 2018-07-21)
PROC: 5A09357 Assistance with Respiratory Ventilation, Less than 24 Consecutive Hours, Continuous Positive Airway Pressure (ICD-10-PCS; 2018-07-23)
DX: I48.2 Chronic atrial fibrillation (principal); I50.23 Acute on chronic systolic (congestive) heart failure; D68.59 Other primary thrombophilia; Z68.42 Body mass index [BMI] 45.0-49.9, adult; I42.0 Dilated cardiomyopathy; D64.9 Anemia, unspecified; E66.01 Morbid (severe) obesity due to excess calories; I27.20 Pulmonary hypertension, unspecified; G47.30 Sleep apnea, unspecified; Z85.01 Personal history of malignant neoplasm of esophagus
CPT/HCPCS: 36415; 36569; 71045; 71046; 80048; 80053; 82270; 83880; 85007; 85014; 85018; 85025; 85027; 85610; 86850; 86900; 86901; 86920; 87077; 87081; 87086; 87088; 87186; 87205; 93005; 94660; 97163; 99152; A6257; G0378; J0690; J0696; J0885; J2001; J2250; J7060

== ENCOUNTER → 2018-07-09 | Outpatient (CLI) | payer MEDICARE, OTHER ==
[2018-07-09] VITALS (7 sets, daily range): BP systolic 112–140; BP diastolic 60–83
[~2018-07-09] VITALS: Ht 30.5 cm; Wt 121.7 kg
[~2018-07-09] MED LIST changes: +ALBU0.08 INH; +ALBUAER3 IN; +CITA-77 PO; +DOBUTamine 1000MCG/ML 250 ML IV ONE; +FUROSEMIDE 40 MG/4 ML VIAL IV ONE; +FUROSEMIDE 40 MG/4 ML VIAL ONE; +METO-158 PO; +MULTTAB PO; +OMEP20TA PO; +RIVSET PO; +TIOT17SP IN
[2018-07-09 11:02] LABS: Hemoglobin 8.4 g/dL (13.5-17.5)
[2018-07-09 11:05] LABS: Hematocrit 26.6 % (41.0-53.0); Mean Corpuscular Hemoglobin 30.8 pg (28.0-32.0); Mean Corpuscular Hgb Conc. 31.7 g/dL (32.0-36.0); Mean Corpuscular Volume 97.2 fL (80.0-100.0); Platelet Count (auto) 285 10^3/uL (140-450); Red Blood Cells 2.74 10^6/uL (4.5-5.90); White Blood Cell 17.9 10^3/uL (4.4-10.8)
[2018-07-09 11:13] LABS: Albumin 3.6 g/dL (3.4-5.0); Calcium 8.8 mg/dL (8.5-10.1); Magnesium 2.3 mg/dL (1.6-2.6); Potassium 4.9 mmol/L (3.5-5.1)
[2018-07-09 11:27] LABS: BUN/Creatinine Ratio 26.8; Bilirubin, Total 1.1 mg/dL (0.2-1.0); Red Cell Distribution Width 22.2 % (11.8-14.3); Total Protein 8.6 g/dL (6.4-8.2)
[2018-07-09 11:28] LABS: Basophils % (manual) 0 (0.0-2.0); Blast Cells 0; Promyelocytes % 0; Reactive Lymphocytes 0
[2018-07-09 12:26] LABS: Band Neutrophils % (manual) 4; Eosinophils % (manual) 1 (0-7); Lymphocytes % (manual) 2 (10.0-50.0); Metamyelocytes % 3; Monocytes % (manual) 5 (0-12); Myelocytes % 3
== END | disposition home or self-care (01) ==
LOC: CHF HDHVI 10:24
PROVIDERS: ATTEND Internal Medicine Cardiovascular Disease
DX: I11.0 Hypertensive heart disease with heart failure (principal); I50.43 Acute on chronic combined systolic (congestive) and diastolic (congestive) heart failure; I25.10 Atherosclerotic heart disease of native coronary artery without angina pectoris; E83.40 Disorders of magnesium metabolism, unspecified; I48.0 Paroxysmal atrial fibrillation; E11.9 Type 2 diabetes mellitus without complications; D51.3 Other dietary vitamin B12 deficiency anemia; I70.0 Atherosclerosis of aorta; I42.0 Dilated cardiomyopathy; J90 Pleural effusion, not elsewhere classified; I25.2 Old myocardial infarction; E87.6 Hypokalemia; E66.01 Morbid (severe) obesity due to excess calories; J44.9 Chronic obstructive pulmonary disease, unspecified; F32.9 Major depressive disorder, single episode, unspecified; E78.5 Hyperlipidemia, unspecified; Z68.41 Body mass index [BMI] 40.0-44.9, adult; Z85.01 Personal history of malignant neoplasm of esophagus; Z87.891 Personal history of nicotine dependence; Z79.899 Other long term (current) drug therapy
CPT/HCPCS: 36415; 80053; 83735; 83880; 85007; 85027; 96365; 96366; 96375; G0463; J1250; J1940

== ENCOUNTER → 2018-07-25 | Outpatient (CLI) | payer MEDICARE, OTHER ==
[~2018-07-25] VITALS: Ht 30.5 cm; Wt 117.8 kg
[~2018-07-25] MED LIST changes: +ALBU0.08 INH; +ALBUAER3 IN; +CITA-77 PO; +CYANOCOBALAMIN (B-12) 1000 MCG/1 ML VIAL IM ONE; +CYANOCOBALAMIN (B-12) 1000 MCG/1 ML VIAL ONE; +METO-158 PO; -METO25TA5 PO; +MULTTAB PO; +MVI in SODIUM CHLORIDE 0.9% 1,010 ML ONE; +OMEP20TA PO; -POM; +POTASSIUM CHL 10 Meq TABLET PO ONE; -PRAV20TA3 PO; -RIVA20TA PO; +RIVSET PO; -SODI15SU PO; +THIAMINE INJ 100 MG, MULTIPLE VITAMIN 10 ML, FOLIC ACID 1 MG, MAGNESIUM SULF SDV 50% 8 ... IV ONE; +TIOT17SP IN; -TIOTCAP IN
[2018-07-25 11:48] LABS: Hematocrit 29.5 % (41.0-53.0); Hemoglobin 9.8 g/dL (13.5-17.5); Mean Corpuscular Hemoglobin 30.6 pg (28.0-32.0); Mean Corpuscular Hgb Conc. 33.3 g/dL (32.0-36.0); Mean Corpuscular Volume 91.8 fL (80.0-100.0); Platelet Count (auto) 287 10^3/uL (140-450); Red Blood Cells 3.21 10^6/uL (4.5-5.90); White Blood Cell 18.7 10^3/uL (4.4-10.8)
[2018-07-25 12:08] LABS: Red Cell Distribution Width 22.7 % (11.8-14.3)
[2018-07-25 12:10] LABS: Blast Cells 0; Eosinophils % (manual) 0 (0-7); Promyelocytes % 0; Reactive Lymphocytes 0
[2018-07-25 12:23] LABS: Albumin 3.4 g/dL (3.4-5.0); BUN/Creatinine Ratio 34.7; Calcium 8.9 mg/dL (8.5-10.1); Magnesium 2.4 mg/dL (1.6-2.6); Potassium 3.5 mmol/L (3.5-5.1)
[2018-07-25 12:25] LABS: Bilirubin, Total 1.7 mg/dL (0.2-1.0); Total Protein 8.4 g/dL (6.4-8.2)
[2018-07-25 13:08] LABS: Band Neutrophils % (manual) 15; Basophils % (manual) 1 (0.0-2.0); Lymphocytes % (manual) 1 (10.0-50.0); Metamyelocytes % 10; Monocytes % (manual) 10 (0-12); Myelocytes % 4
[2018-07-25 16:35] VITALS: BP 136/61
== END | disposition home or self-care (01) ==
LOC: CHF HDHVI 10:28
PROVIDERS: ATTEND Internal Medicine Cardiovascular Disease
DX: I11.0 Hypertensive heart disease with heart failure (principal); I50.42 Chronic combined systolic (congestive) and diastolic (congestive) heart failure; E83.40 Disorders of magnesium metabolism, unspecified; R06.02 Shortness of breath; R53.1 Weakness; N39.0 Urinary tract infection, site not specified; R94.4 Abnormal results of kidney function studies; D51.3 Other dietary vitamin B12 deficiency anemia; E87.6 Hypokalemia; I48.2 Chronic atrial fibrillation; I48.0 Paroxysmal atrial fibrillation; D68.59 Other primary thrombophilia; I70.0 Atherosclerosis of aorta; I42.9 Cardiomyopathy, unspecified; I25.10 Atherosclerotic heart disease of native coronary artery without angina pectoris; J44.9 Chronic obstructive pulmonary disease, unspecified; E78.5 Hyperlipidemia, unspecified; E66.01 Morbid (severe) obesity due to excess calories; F32.9 Major depressive disorder, single episode, unspecified; I25.2 Old myocardial infarction; E11.9 Type 2 diabetes mellitus without complications; I46.9 Cardiac arrest, cause unspecified; Z87.891 Personal history of nicotine dependence; Z79.899 Other long term (current) drug therapy; Z68.42 Body mass index [BMI] 45.0-49.9, adult; Z85.01 Personal history of malignant neoplasm of esophagus
CPT/HCPCS: 36415; 71046; 80053; 83735; 83880; 85007; 85027; 96365; 96366; 96372; G0463; J1642; J3411; J3420; J3475; J7030

== ENCOUNTER → 2018-07-26 | Outpatient (CLI) | payer MEDICARE, OTHER ==
[~2018-07-26] MED LIST changes: -CYANOCOBALAMIN (B-12) 1000 MCG/1 ML VIAL IM ONE; -CYANOCOBALAMIN (B-12) 1000 MCG/1 ML VIAL ONE; -MVI in SODIUM CHLORIDE 0.9% 1,010 ML ONE; -POTASSIUM CHL 10 Meq TABLET PO ONE; -THIAMINE INJ 100 MG, MULTIPLE VITAMIN 10 ML, FOLIC ACID 1 MG, MAGNESIUM SULF SDV 50% 8 ... IV ONE
[2018-07-26 11:59] LABS: Urine Blood Negative /uL (Negative); Urine Specific Gravity 1.012 (1.001-1.035)
== END | disposition home or self-care (01) ==
LOC: LAB 09:33
PROVIDERS: ATTEND Internal Medicine Cardiovascular Disease
DX: N39.0 Urinary tract infection, site not specified (principal)
CPT/HCPCS: 81003; 87086

== ENCOUNTER → 2018-07-27 | Outpatient (CLI) | payer MEDICARE, OTHER ==
[~2018-07-27] MED LIST changes: +ALBUTEROL SULF 2.5 MG/0.5ML(0.5%) NEB SOLN NEB ONE; +ALBUTEROL SULF 2.5 MG/0.5ML(0.5%) NEB SOLN ONE; +LEVOFLOXACIN 250MG 50 ML IV ONE; +MVI in SODIUM CHLORIDE 0.9% 1,010 ML ONE; +THIAMINE INJ 100 MG, MULTIPLE VITAMIN 10 ML, FOLIC ACID 1 MG, MAGNESIUM SULF SDV 50% 8 ... IV ONE
[2018-07-27 10:13] LABS: Potassium 3.7 mmol/L (3.5-5.1)
[2018-07-27 13:05] VITALS: BP 137/57
== END | disposition home or self-care (01) ==
LOC: CHF HDHVI 09:21
PROVIDERS: ATTEND Internal Medicine Cardiovascular Disease
DX: I50.23 Acute on chronic systolic (congestive) heart failure (principal); R94.4 Abnormal results of kidney function studies; E87.6 Hypokalemia
CPT/HCPCS: 36415; 82565; 83880; 84132; 84520; 96365; 96366; 96368; G0463; J1642; J1956; J3411; J3475; J7611

== ENCOUNTER → 2018-07-30 | Outpatient (CLI) | payer MEDICARE, OTHER ==
[~2018-07-30] MED LIST changes: -ALBUTEROL SULF 2.5 MG/0.5ML(0.5%) NEB SOLN NEB ONE; -ALBUTEROL SULF 2.5 MG/0.5ML(0.5%) NEB SOLN ONE; +CYANOCOBALAMIN (B-12) 1000 MCG/1 ML VIAL IM ONE; +CYANOCOBALAMIN (B-12) 1000 MCG/1 ML VIAL ONE; +FUROSEMIDE 40 MG/4 ML VIAL IV ONE; +FUROSEMIDE 40 MG/4 ML VIAL ONE; -LEVOFLOXACIN 250MG 50 ML IV ONE; -MVI in SODIUM CHLORIDE 0.9% 1,010 ML ONE; +POTASSIUM CHL 10 Meq TABLET PO ONE; +POTASSIUM CHL 20 Meq TABLET PO ONE; -THIAMINE INJ 100 MG, MULTIPLE VITAMIN 10 ML, FOLIC ACID 1 MG, MAGNESIUM SULF SDV 50% 8 ... IV ONE; +cefTRIAXone 1GM/50ML D5W 50 ML IV ONE
[2018-07-30 10:12] LABS: Hematocrit 30.1 % (41.0-53.0); Hemoglobin 9.8 g/dL (13.5-17.5); Mean Corpuscular Hemoglobin 30.5 pg (28.0-32.0); Mean Corpuscular Hgb Conc. 32.5 g/dL (32.0-36.0); Mean Corpuscular Volume 93.7 fL (80.0-100.0); Platelet Count (auto) 199 10^3/uL (140-450); Red Blood Cells 3.22 10^6/uL (4.5-5.90); White Blood Cell 11.2 10^3/uL (4.4-10.8)
[2018-07-30 10:26] LABS: Basophils % (manual) 0 (0.0-2.0); Blast Cells 0; Promyelocytes % 0; Reactive Lymphocytes 0
[2018-07-30 10:31] LABS: Calcium 8.6 mg/dL (8.5-10.1); Magnesium 2.4 mg/dL (1.6-2.6); Potassium 3.5 mmol/L (3.5-5.1)
[2018-07-30] MEDS: POTASSIUM CHL 20 Meq TABLET PO SCH (11:36)
[2018-07-30 11:43] LABS: Band Neutrophils % (manual) 11; Eosinophils % (manual) 3 (0-7); Lymphocytes % (manual) 4 (10.0-50.0); Metamyelocytes % 1; Monocytes % (manual) 5 (0-12); Myelocytes % 3
[2018-07-30 13:15] VITALS: BP 148/57
== END | disposition home or self-care (01) ==
LOC: CHF HDHVI 09:12
PROVIDERS: ATTEND Internal Medicine Cardiovascular Disease
DX: I11.0 Hypertensive heart disease with heart failure (principal); I50.42 Chronic combined systolic (congestive) and diastolic (congestive) heart failure; E83.40 Disorders of magnesium metabolism, unspecified; I25.10 Atherosclerotic heart disease of native coronary artery without angina pectoris; C15.9 Malignant neoplasm of esophagus, unspecified; J06.9 Acute upper respiratory infection, unspecified; E87.6 Hypokalemia; E11.9 Type 2 diabetes mellitus without complications; R94.4 Abnormal results of kidney function studies; I70.0 Atherosclerosis of aorta; I48.2 Chronic atrial fibrillation; K92.2 Gastrointestinal hemorrhage, unspecified; E78.5 Hyperlipidemia, unspecified; G47.30 Sleep apnea, unspecified; I27.21 Secondary pulmonary arterial hypertension; F32.9 Major depressive disorder, single episode, unspecified; E66.01 Morbid (severe) obesity due to excess calories; I25.2 Old myocardial infarction; I48.0 Paroxysmal atrial fibrillation; I08.1 Rheumatic disorders of both mitral and tricuspid valves; Z87.440 Personal history of urinary (tract) infections; Z68.42 Body mass index [BMI] 45.0-49.9, adult; Z85.89 Personal history of malignant neoplasm of other organs and systems; Z88.1 Allergy status to other antibiotic agents; Z99.81 Dependence on supplemental oxygen; Z79.899 Other long term (current) drug therapy; Z87.891 Personal history of nicotine dependence; Z79.891 Long term (current) use of opiate analgesic
CPT/HCPCS: 36415; 80048; 83735; 83880; 85007; 85027; 96365; 96372; 96375; G0463; J0696; J1642; J1940; J3420; 96523

== ENCOUNTER → 2018-08-03 | Outpatient (CLI) | payer MEDICARE, OTHER ==
[~2018-08-03] MED LIST changes: +BACITRACIN TOP OINT 1 UD PKG TOP ONE; -CYANOCOBALAMIN (B-12) 1000 MCG/1 ML VIAL IM ONE; -FUROSEMIDE 40 MG/4 ML VIAL IV ONE; -FUROSEMIDE 40 MG/4 ML VIAL ONE; -POTASSIUM CHL 10 Meq TABLET PO ONE; -POTASSIUM CHL 20 Meq TABLET PO ONE
[2018-08-03 10:13] LABS: Hematocrit 31.6 % (41.0-53.0); Hemoglobin 10.1 g/dL (13.5-17.5); Mean Corpuscular Hemoglobin 29.9 pg (28.0-32.0); Mean Corpuscular Hgb Conc. 32.1 g/dL (32.0-36.0); Mean Corpuscular Volume 93.1 fL (80.0-100.0); Platelet Count (auto) 181 10^3/uL (140-450); Red Blood Cells 3.39 10^6/uL (4.5-5.90)
[2018-08-03 10:16] LABS: Red Cell Distribution Width 22.9 % (11.8-14.3)
[2018-08-03 10:18] LABS: Basophils % (manual) 0 (0.0-2.0); Blast Cells 0; Promyelocytes % 0; Reactive Lymphocytes 0
[2018-08-03 10:22] LABS: Albumin 3.4 g/dL (3.4-5.0); BUN/Creatinine Ratio 31.6; Calcium 8.8 mg/dL (8.5-10.1); Potassium 4.1 mmol/L (3.5-5.1)
[2018-08-03 10:24] LABS: Bilirubin, Total 1.1 mg/dL (0.2-1.0); Total Protein 8.4 g/dL (6.4-8.2)
[2018-08-03 12:20] VITALS: BP 142/77
[2018-08-03 14:03] LABS: Band Neutrophils % (manual) 7; Eosinophils % (manual) 2 (0-7); Lymphocytes % (manual) 4 (10.0-50.0); Metamyelocytes % 1; Monocytes % (manual) 5 (0-12); Myelocytes % 4
== END | disposition home or self-care (01) ==
LOC: CHF HDHVI 09:15
PROVIDERS: ATTEND Internal Medicine Cardiovascular Disease
DX: I11.0 Hypertensive heart disease with heart failure (principal); I50.9 Heart failure, unspecified; R89.9 Unspecified abnormal finding in specimens from other organs, systems and tissues; D64.9 Anemia, unspecified; J90 Pleural effusion, not elsewhere classified; R06.02 Shortness of breath
CPT/HCPCS: 36415; 71046; 80053; 83880; 85007; 85027; 87205; J0696; J1642; J3420

== ENCOUNTER → 2018-08-06 | Outpatient (CLI) | payer MEDICARE, OTHER ==
[~2018-08-06] VITALS: Ht 30.5 cm; Wt 0.5 kg
[~2018-08-06] MED LIST changes: -BACITRACIN TOP OINT 1 UD PKG TOP ONE; -CYANOCOBALAMIN (B-12) 1000 MCG/1 ML VIAL ONE; -cefTRIAXone 1GM/50ML D5W 50 ML IV ONE
[2018-08-06 09:40] VITALS: BP 121/68
[2018-08-06 10:40] VITALS: BP 129/66
[2018-08-06 11:43] LABS: Potassium 4.3 mmol/L (3.5-5.1)
[2018-08-06 12:00] LABS: Hematocrit 33.4 % (41.0-53.0); Hemoglobin 10.4 g/dL (13.5-17.5); Mean Corpuscular Hemoglobin 29.6 pg (28.0-32.0); Mean Corpuscular Hgb Conc. 31.3 g/dL (32.0-36.0); Mean Corpuscular Volume 94.4 fL (80.0-100.0); Platelet Count (auto) 182 10^3/uL (140-450); Red Blood Cells 3.53 10^6/uL (4.5-5.90); White Blood Cell 14.3 10^3/uL (4.4-10.8)
[2018-08-06 12:28] LABS: Red Cell Distribution Width 23.1 % (11.8-14.3)
[2018-08-06 12:29] LABS: Basophils % (manual) 0 (0.0-2.0); Blast Cells 0; Eosinophils % (manual) 0 (0-7); Metamyelocytes % 0; Myelocytes % 0; Promyelocytes % 0; Reactive Lymphocytes 0
[2018-08-06 16:40] LABS: Band Neutrophils % (manual) 11; Lymphocytes % (manual) 4 (10.0-50.0); Monocytes % (manual) 4 (0-12)
== END | disposition home or self-care (01) ==
LOC: CHF HDHVI 09:45
PROVIDERS: ATTEND Internal Medicine Cardiovascular Disease
DX: E87.6 Hypokalemia (principal); R94.4 Abnormal results of kidney function studies; I11.0 Hypertensive heart disease with heart failure; I50.42 Chronic combined systolic (congestive) and diastolic (congestive) heart failure; D64.9 Anemia, unspecified; I25.10 Atherosclerotic heart disease of native coronary artery without angina pectoris; I70.0 Atherosclerosis of aorta; I48.0 Paroxysmal atrial fibrillation; F32.9 Major depressive disorder, single episode, unspecified; J44.9 Chronic obstructive pulmonary disease, unspecified; E66.01 Morbid (severe) obesity due to excess calories; I25.2 Old myocardial infarction; E78.5 Hyperlipidemia, unspecified; E11.9 Type 2 diabetes mellitus without complications; G47.30 Sleep apnea, unspecified; I27.21 Secondary pulmonary arterial hypertension; Z79.899 Other long term (current) drug therapy; Z88.1 Allergy status to other antibiotic agents; Z87.440 Personal history of urinary (tract) infections; Z68.42 Body mass index [BMI] 45.0-49.9, adult; Z87.891 Personal history of nicotine dependence; Z85.01 Personal history of malignant neoplasm of esophagus
CPT/HCPCS: 36415; 82565; 83880; 84132; 84520; 85007; 85027; G0463; J1642; 96523

== ENCOUNTER → 2018-08-08 | Outpatient (CLI) | payer MEDICARE, OTHER | END | disposition home or self-care (01) | LOC: Rad HDHVI 13:48 → CHF HDHVI 13:48 | PROVIDERS: ATTEND Internal Medicine Cardiovascular Disease | DX: I42.0 Dilated cardiomyopathy (principal); J98.4 Other disorders of lung; I11.0 Hypertensive heart disease with heart failure; I50.23 Acute on chronic systolic (congestive) heart failure | CPT/HCPCS: 93306 ==

== ENCOUNTER → 2018-08-14 | Outpatient (CLI) | payer MEDICARE, OTHER ==
[2018-08-14] VITALS (7 sets, daily range): BP systolic 106–125; BP diastolic 51–64
[~2018-08-14] MED LIST changes: +DOBUTamine 1000MCG/ML 250 ML IV ONE
[2018-08-14 12:08] LABS: Hemoglobin 9.6 g/dL (13.5-17.5); Mean Corpuscular Hemoglobin 30.1 pg (28.0-32.0); Mean Corpuscular Hgb Conc. 31.9 g/dL (32.0-36.0); Mean Corpuscular Volume 94.2 fL (80.0-100.0); Platelet Count (auto) 222 10^3/uL (140-450); Red Blood Cells 3.19 10^6/uL (4.5-5.90); White Blood Cell 11.8 10^3/uL (4.4-10.8)
[2018-08-14 12:38] LABS: Potassium 4.4 mmol/L (3.5-5.1)
[2018-08-14 12:40] LABS: Red Cell Distribution Width 23.8 % (11.8-14.3)
[2018-08-14 12:41] LABS: Basophils % (manual) 0 (0.0-2.0); Blast Cells 0; Metamyelocytes % 0; Myelocytes % 0; Promyelocytes % 0; Reactive Lymphocytes 0
[2018-08-14 12:43] LABS: BUN/Creatinine Ratio 27.1; Magnesium 2.3 mg/dL (1.6-2.6)
[2018-08-14 17:43] LABS: Band Neutrophils % (manual) 6; Eosinophils % (manual) 3 (0-7); Lymphocytes % (manual) 4 (10.0-50.0); Monocytes % (manual) 7 (0-12)
== END | disposition home or self-care (01) ==
LOC: CHF HDHVI 10:07
PROVIDERS: ATTEND Internal Medicine Cardiovascular Disease
DX: I11.0 Hypertensive heart disease with heart failure (principal); I50.42 Chronic combined systolic (congestive) and diastolic (congestive) heart failure; E11.9 Type 2 diabetes mellitus without complications; E83.40 Disorders of magnesium metabolism, unspecified; D64.9 Anemia, unspecified; I42.0 Dilated cardiomyopathy; I25.10 Atherosclerotic heart disease of native coronary artery without angina pectoris; I27.21 Secondary pulmonary arterial hypertension; I70.0 Atherosclerosis of aorta; I08.1 Rheumatic disorders of both mitral and tricuspid valves; I25.2 Old myocardial infarction; E66.01 Morbid (severe) obesity due to excess calories; I48.0 Paroxysmal atrial fibrillation; G47.30 Sleep apnea, unspecified; E78.5 Hyperlipidemia, unspecified; F32.9 Major depressive disorder, single episode, unspecified; Z88.1 Allergy status to other antibiotic agents; Z79.899 Other long term (current) drug therapy; Z87.440 Personal history of urinary (tract) infections; Z68.41 Body mass index [BMI] 40.0-44.9, adult; Z85.01 Personal history of malignant neoplasm of esophagus; Z79.891 Long term (current) use of opiate analgesic; Z99.81 Dependence on supplemental oxygen
CPT/HCPCS: 36415; 80048; 83735; 83880; 85007; 85027; 96365; 96366; G0463; J1250; J1642

== ENCOUNTER → 2018-08-16 | Outpatient (CLI) | payer MEDICARE, OTHER ==
[2018-08-16] VITALS (8 sets, daily range): BP systolic 108–138; BP diastolic 49–70
[~2018-08-16] VITALS: Ht 30.5 cm; Wt 112.5 kg
== END | disposition home or self-care (01) ==
LOC: CHF HDHVI 09:51
PROVIDERS: ATTEND Internal Medicine Cardiovascular Disease
DX: I11.0 Hypertensive heart disease with heart failure (principal); I50.42 Chronic combined systolic (congestive) and diastolic (congestive) heart failure; J44.9 Chronic obstructive pulmonary disease, unspecified; E11.9 Type 2 diabetes mellitus without complications; I25.10 Atherosclerotic heart disease of native coronary artery without angina pectoris; I70.0 Atherosclerosis of aorta; I48.2 Chronic atrial fibrillation; I25.2 Old myocardial infarction; I42.0 Dilated cardiomyopathy; I27.21 Secondary pulmonary arterial hypertension; E78.5 Hyperlipidemia, unspecified; G47.30 Sleep apnea, unspecified; F32.9 Major depressive disorder, single episode, unspecified; E66.01 Morbid (severe) obesity due to excess calories; Z68.42 Body mass index [BMI] 45.0-49.9, adult; Z99.81 Dependence on supplemental oxygen; Z79.891 Long term (current) use of opiate analgesic; Z85.01 Personal history of malignant neoplasm of esophagus; Z87.891 Personal history of nicotine dependence
CPT/HCPCS: 96365; 96366; G0463; J1250; J1642

== ENCOUNTER → 2018-08-20 | Outpatient (CLI) | payer MEDICARE, OTHER ==
[~2018-08-20] VITALS: Ht 30.5 cm; Wt 111.1 kg
[2018-08-20 09:30] VITALS: BP 98/69
[2018-08-20 12:45] VITALS: BP 107/71
[2018-08-20 12:49] LABS: Basophils # (auto) 0.1 uL; Basophils % (auto) 1.2 % (0.0-2.0); Eosinophils # (auto) 0.2 uL; Eosinophils % (auto) 2.3 % (0.0-7.0); Hematocrit 32.9 % (41.0-53.0); Hemoglobin 10.7 g/dL (13.5-17.5); Lymphocytes # (auto) 0.5 uL; Lymphocytes % (auto) 5.1 % (10.0-50.0); Mean Corpuscular Hemoglobin 31.1 pg (28.0-32.0); Mean Corpuscular Hgb Conc. 32.6 g/dL (32.0-36.0); Mean Corpuscular Volume 95.3 fL (80.0-100.0); Monocytes % (auto) 9.6 % (0.0-12.0); Neutrophils # (auto) 8.5 uL; Neutrophils % (auto) 81.8 % (37.0-80.0); Nucleated Red Blood Cells % 0.1 %; Platelet Count (auto) 253 10^3/uL (140-450); Red Blood Cells 3.45 10^6/uL (4.5-5.90); White Blood Cell 10.3 10^3/uL (4.4-10.8)
[2018-08-20 13:21] LABS: Potassium 4.9 mmol/L (3.5-5.1)
[2018-08-20 13:38] LABS: BUN/Creatinine Ratio 28.2; Calcium 9.6 mg/dL (8.5-10.1); Magnesium 2.3 mg/dL (1.6-2.6)
[2018-08-20 13:40] LABS: Red Cell Distribution Width 23.8 % (11.8-14.3)
== END | disposition home or self-care (01) ==
LOC: CHF HDHVI 09:19
PROVIDERS: ATTEND Internal Medicine Cardiovascular Disease
DX: I11.0 Hypertensive heart disease with heart failure (principal); I50.42 Chronic combined systolic (congestive) and diastolic (congestive) heart failure; E11.9 Type 2 diabetes mellitus without complications; I27.21 Secondary pulmonary arterial hypertension; I25.10 Atherosclerotic heart disease of native coronary artery without angina pectoris; I25.2 Old myocardial infarction; J44.9 Chronic obstructive pulmonary disease, unspecified; I70.0 Atherosclerosis of aorta; I48.2 Chronic atrial fibrillation; I42.0 Dilated cardiomyopathy; I08.1 Rheumatic disorders of both mitral and tricuspid valves; E78.5 Hyperlipidemia, unspecified; E66.01 Morbid (severe) obesity due to excess calories; G47.30 Sleep apnea, unspecified; E83.40 Disorders of magnesium metabolism, unspecified; D64.9 Anemia, unspecified; F32.9 Major depressive disorder, single episode, unspecified; Z85.01 Personal history of malignant neoplasm of esophagus; Z79.891 Long term (current) use of opiate analgesic; Z79.899 Other long term (current) drug therapy; Z99.81 Dependence on supplemental oxygen; Z87.891 Personal history of nicotine dependence
CPT/HCPCS: 36415; 80048; 83735; 83880; 85025; 96365; 96366; G0463; J1250; J1642

== ENCOUNTER → 2018-08-24 | Outpatient (CLI) | payer MEDICARE, OTHER ==
[~2018-08-24] VITALS: Ht 30.5 cm; Wt 110.3 kg
[2018-08-24] VITALS (7 sets, daily range): BP systolic 95–118; BP diastolic 48–65
== END | disposition home or self-care (01) ==
LOC: CHF HDHVI 09:05
PROVIDERS: ATTEND Internal Medicine Cardiovascular Disease
DX: I11.0 Hypertensive heart disease with heart failure (principal); I50.42 Chronic combined systolic (congestive) and diastolic (congestive) heart failure; E11.9 Type 2 diabetes mellitus without complications; I25.10 Atherosclerotic heart disease of native coronary artery without angina pectoris; I25.2 Old myocardial infarction; I70.0 Atherosclerosis of aorta; I27.21 Secondary pulmonary arterial hypertension; I48.2 Chronic atrial fibrillation; I42.0 Dilated cardiomyopathy; J44.9 Chronic obstructive pulmonary disease, unspecified; G47.30 Sleep apnea, unspecified; E78.5 Hyperlipidemia, unspecified; J98.4 Other disorders of lung; I08.1 Rheumatic disorders of both mitral and tricuspid valves; F32.9 Major depressive disorder, single episode, unspecified; E66.01 Morbid (severe) obesity due to excess calories; Z68.42 Body mass index [BMI] 45.0-49.9, adult; Z85.01 Personal history of malignant neoplasm of esophagus; Z99.81 Dependence on supplemental oxygen; Z79.891 Long term (current) use of opiate analgesic; Z79.899 Other long term (current) drug therapy; Z87.891 Personal history of nicotine dependence
CPT/HCPCS: 96365; 96366; G0463; J1250; J1642

== ENCOUNTER → 2018-08-28 | Outpatient (CLI) | payer MEDICARE, OTHER ==
[2018-08-28 09:45] VITALS: BP 113/56
[2018-08-28 10:00] VITALS: BP 103/44
[2018-08-28 12:07] LABS: Basophils # (auto) 0.1 uL; Basophils % (auto) 1.1 % (0.0-2.0); Eosinophils # (auto) 0.2 uL; Eosinophils % (auto) 1.7 % (0.0-7.0); Hematocrit 30.7 % (41.0-53.0); Lymphocytes # (auto) 0.3 uL; Lymphocytes % (auto) 3.1 % (10.0-50.0); Mean Corpuscular Hemoglobin 30.9 pg (28.0-32.0); Mean Corpuscular Hgb Conc. 32.6 g/dL (32.0-36.0); Monocytes # (auto) 0.6 uL; Monocytes % (auto) 5.8 % (0.0-12.0); Neutrophils # (auto) 8.4 uL; Neutrophils % (auto) 88.3 % (37.0-80.0); Platelet Count (auto) 213 10^3/uL (140-450); Red Blood Cells 3.23 10^6/uL (4.5-5.90); White Blood Cell 9.5 10^3/uL (4.4-10.8)
[2018-08-28 12:20] LABS: Red Cell Distribution Width 23.7 % (11.8-14.3)
[2018-08-28 12:24] LABS: Potassium 4.3 mmol/L (3.5-5.1)
[2018-08-28 12:27] LABS: BUN/Creatinine Ratio 32.2; Calcium 8.3 mg/dL (8.5-10.1); Magnesium 2.2 mg/dL (1.6-2.6)
[2018-08-28 12:50] VITALS: BP 115/58
== END | disposition home or self-care (01) ==
LOC: CHF HDHVI 09:25
PROVIDERS: ATTEND Internal Medicine Cardiovascular Disease
DX: I11.0 Hypertensive heart disease with heart failure (principal); I50.42 Chronic combined systolic (congestive) and diastolic (congestive) heart failure; E11.9 Type 2 diabetes mellitus without complications; E83.40 Disorders of magnesium metabolism, unspecified; D51.9 Vitamin B12 deficiency anemia, unspecified; N28.9 Disorder of kidney and ureter, unspecified; J44.9 Chronic obstructive pulmonary disease, unspecified; I25.10 Atherosclerotic heart disease of native coronary artery without angina pectoris; I48.2 Chronic atrial fibrillation; E78.5 Hyperlipidemia, unspecified; F32.9 Major depressive disorder, single episode, unspecified; I25.2 Old myocardial infarction; Z79.891 Long term (current) use of opiate analgesic; Z87.891 Personal history of nicotine dependence; Z85.01 Personal history of malignant neoplasm of esophagus; Z87.440 Personal history of urinary (tract) infections; Z79.899 Other long term (current) drug therapy; Z99.81 Dependence on supplemental oxygen; Z68.42 Body mass index [BMI] 45.0-49.9, adult; Z85.89 Personal history of malignant neoplasm of other organs and systems
CPT/HCPCS: 36415; 80048; 82607; 83735; 83880; 85025; 93701; 96365; 96366; G0463; J1250; J1642

== ENCOUNTER → 2018-08-30 | Outpatient (CLI) | payer MEDICARE, OTHER ==
[2018-08-30] VITALS (9 sets, daily range): BP systolic 92–116; BP diastolic 45–54
== END | disposition home or self-care (01) ==
LOC: CHF HDHVI 08:56
PROVIDERS: ATTEND Internal Medicine Cardiovascular Disease
DX: I11.0 Hypertensive heart disease with heart failure (principal); I50.42 Chronic combined systolic (congestive) and diastolic (congestive) heart failure; K76.6 Portal hypertension; J98.4 Other disorders of lung; I25.10 Atherosclerotic heart disease of native coronary artery without angina pectoris; I48.2 Chronic atrial fibrillation; D64.9 Anemia, unspecified; E11.9 Type 2 diabetes mellitus without complications; E66.01 Morbid (severe) obesity due to excess calories; J44.9 Chronic obstructive pulmonary disease, unspecified; E78.5 Hyperlipidemia, unspecified; F32.9 Major depressive disorder, single episode, unspecified; I25.2 Old myocardial infarction; Z79.891 Long term (current) use of opiate analgesic; Z99.81 Dependence on supplemental oxygen; Z79.899 Other long term (current) drug therapy; Z85.01 Personal history of malignant neoplasm of esophagus; Z85.89 Personal history of malignant neoplasm of other organs and systems; Z87.891 Personal history of nicotine dependence; Z87.440 Personal history of urinary (tract) infections; Z68.42 Body mass index [BMI] 45.0-49.9, adult
CPT/HCPCS: 96365; 96366; G0463; J1250; J1642

== ENCOUNTER → 2018-09-04 | Outpatient (CLI) | payer MEDICARE, OTHER ==
[2018-09-04 12:15] VITALS: BP 125/56
[2018-09-04 12:32] LABS: Albumin 3.3 g/dL (3.4-5.0); Calcium 8.2 mg/dL (8.5-10.1); Potassium 4.4 mmol/L (3.5-5.1)
[2018-09-04 12:37] LABS: BUN/Creatinine Ratio 21.7; Bilirubin, Total 0.6 mg/dL (0.2-1.0); Total Protein 8.3 g/dL (6.4-8.2)
[2018-09-04 12:43] LABS: Hematocrit 29.6 % (41.0-53.0); Hemoglobin 9.8 g/dL (13.5-17.5); Mean Corpuscular Hemoglobin 32.1 pg (28.0-32.0); Mean Corpuscular Hgb Conc. 33.1 g/dL (32.0-36.0); Platelet Count (auto) 204 10^3/uL (140-450); Red Blood Cells 3.05 10^6/uL (4.5-5.90); White Blood Cell 9.7 10^3/uL (4.4-10.8)
[2018-09-04 12:57] LABS: Basophils % (manual) 0 (0.0-2.0); Blast Cells 0; Myelocytes % 0; Promyelocytes % 0; Reactive Lymphocytes 0
[2018-09-04 13:30] LABS: Band Neutrophils % (manual) 1; Eosinophils % (manual) 3 (0-7); Lymphocytes % (manual) 4 (10.0-50.0); Metamyelocytes % 2; Monocytes % (manual) 13 (0-12)
== END | disposition home or self-care (01) ==
LOC: CHF HDHVI 09:15
PROVIDERS: ATTEND Internal Medicine Cardiovascular Disease
DX: I11.0 Hypertensive heart disease with heart failure (principal); I50.42 Chronic combined systolic (congestive) and diastolic (congestive) heart failure; D64.9 Anemia, unspecified; I27.21 Secondary pulmonary arterial hypertension; I25.10 Atherosclerotic heart disease of native coronary artery without angina pectoris; J44.9 Chronic obstructive pulmonary disease, unspecified; I48.2 Chronic atrial fibrillation; I25.2 Old myocardial infarction; I70.0 Atherosclerosis of aorta; I42.9 Cardiomyopathy, unspecified; E11.9 Type 2 diabetes mellitus without complications; E78.5 Hyperlipidemia, unspecified; F32.9 Major depressive disorder, single episode, unspecified; E66.01 Morbid (severe) obesity due to excess calories; Z68.41 Body mass index [BMI] 40.0-44.9, adult; Z79.891 Long term (current) use of opiate analgesic; Z79.899 Other long term (current) drug therapy; Z99.81 Dependence on supplemental oxygen; Z85.01 Personal history of malignant neoplasm of esophagus; Z87.891 Personal history of nicotine dependence
CPT/HCPCS: 36415; 80053; 83880; 85007; 85027; 96365; 96366; G0463; J1250; J1642

== ENCOUNTER → 2018-09-07 | Outpatient (CLI) | payer MEDICARE, OTHER ==
[~2018-09-07] VITALS: Ht 30.5 cm; Wt 51.3 kg
[2018-09-07 08:15] VITALS: BP 111/49
[2018-09-07 08:30] VITALS: BP 105/43
[2018-09-07 08:45] VITALS: BP 96/48
[2018-09-07 12:00] VITALS: BP 103/50
== END | disposition home or self-care (01) ==
LOC: CHF HDHVI 08:22
PROVIDERS: ATTEND Internal Medicine Cardiovascular Disease
DX: I11.0 Hypertensive heart disease with heart failure (principal); I50.22 Chronic systolic (congestive) heart failure; I70.0 Atherosclerosis of aorta; I27.21 Secondary pulmonary arterial hypertension; I48.0 Paroxysmal atrial fibrillation; I25.10 Atherosclerotic heart disease of native coronary artery without angina pectoris; I25.2 Old myocardial infarction; E78.5 Hyperlipidemia, unspecified; J44.9 Chronic obstructive pulmonary disease, unspecified; E66.01 Morbid (severe) obesity due to excess calories; E11.9 Type 2 diabetes mellitus without complications; G47.30 Sleep apnea, unspecified; F32.9 Major depressive disorder, single episode, unspecified; Z68.41 Body mass index [BMI] 40.0-44.9, adult; Z79.899 Other long term (current) drug therapy; Z85.01 Personal history of malignant neoplasm of esophagus; Z87.891 Personal history of nicotine dependence
CPT/HCPCS: 96365; 96366; G0463; J1250; J1642

== ENCOUNTER → 2018-09-13 | Outpatient (CLI) | payer MEDICARE, OTHER ==
[2018-09-13] VITALS (7 sets, daily range): BP systolic 93–130; BP diastolic 44–65
[~2018-09-13] MED LIST changes: +CYANOCOBALAMIN (B-12) 1000 MCG/1 ML VIAL IM ONE; +CYANOCOBALAMIN (B-12) 1000 MCG/1 ML VIAL ONE
--- NOTE | 2018-09-13 09:15 | NUR ---
IN TO CLINIC WITH IN ATTENDANCE FOR CHF/PAH FOLLOWUP. OXYGEN IN USE AND USE OF WALKER. GAIT STEADY AND AFFECT PLEASANT. PT REPORTS INCREASED ENERGY AND INCREASED ACTIVITIES AT HOUSE. AND PATIENT VERBALIZE CONCERNS OVER LEVEL OF FATIGUE BUT UPON FURTHER DISCUSSION IT IS REVEALED THAT PATIENT WENT WITHOUT HIS OXYGEN AT TIME OF FATIGUE. RIGHT ARM PICC LINE DRESSING CHANGES BY ALYSE RICHARDSON. SITE BENIGN. DRESSING CHANGED PER PROTOCOL. VS WNL. SEE FREQUENT VITAL SIGNS. MEDICATION ADMINISTRATION DOBUTAMINE GTT AT 5 MCG/KG/MIN (33.5ML/HR) START AT 0920/STOP AT 1212 VITAMIN B12 1000 MCG IM TO LEFT DELTOID AT 0945 HEPARIN 150 UNITS IVP X 3 TO PICC LINE PORTS
[2018-09-13 12:16] LABS: BUN/Creatinine Ratio 32.5; Basophils # (auto) 0.1 uL; Basophils % (auto) 0.8 % (0.0-2.0); Calcium 8.5 mg/dL (8.5-10.1); Eosinophils # (auto) 0.2 uL; Hematocrit 29.9 % (41.0-53.0); Hemoglobin 9.9 g/dL (13.5-17.5); Lymphocytes # (auto) 0.4 uL; Lymphocytes % (auto) 3.2 % (10.0-50.0); Mean Corpuscular Hemoglobin 32.1 pg (28.0-32.0); Mean Corpuscular Hgb Conc. 33.2 g/dL (32.0-36.0); Mean Corpuscular Volume 96.7 fL (80.0-100.0); Monocytes # (auto) 0.7 uL; Monocytes % (auto) 5.9 % (0.0-12.0); Neutrophils # (auto) 10.3 uL; Neutrophils % (auto) 88.1 % (37.0-80.0); Platelet Count (auto) 233 10^3/uL (140-450); Potassium 3.9 mmol/L (3.5-5.1); White Blood Cell 11.6 10^3/uL (4.4-10.8)
[2018-09-13 12:24] LABS: Red Cell Distribution Width 24.1 % (11.8-14.3)
[2018-09-13 15:39] LABS: Urine Bacteria NONE SEEN /hpf (None Seen); Urine Blood Negative /uL (Negative); Urine Hyaline Cast FEW /lpf (0 - 2); Urine Specific Gravity 1.014 (1.001-1.035); Urine WBC 1 /hpf (0 - 3)
== END | disposition home or self-care (01) ==
LOC: CHF HDHVI 09:05
PROVIDERS: ATTEND Internal Medicine Cardiovascular Disease
DX: I11.0 Hypertensive heart disease with heart failure (principal); I50.23 Acute on chronic systolic (congestive) heart failure; I50.32 Chronic diastolic (congestive) heart failure; D64.9 Anemia, unspecified; E83.40 Disorders of magnesium metabolism, unspecified; I27.21 Secondary pulmonary arterial hypertension; I48.2 Chronic atrial fibrillation; I25.2 Old myocardial infarction; I70.0 Atherosclerosis of aorta; I25.10 Atherosclerotic heart disease of native coronary artery without angina pectoris; J44.9 Chronic obstructive pulmonary disease, unspecified; I48.0 Paroxysmal atrial fibrillation; E78.5 Hyperlipidemia, unspecified; E66.01 Morbid (severe) obesity due to excess calories; G47.30 Sleep apnea, unspecified; E11.9 Type 2 diabetes mellitus without complications; F32.9 Major depressive disorder, single episode, unspecified; Z99.81 Dependence on supplemental oxygen; Z79.899 Other long term (current) drug therapy; Z85.01 Personal history of malignant neoplasm of esophagus; Z87.891 Personal history of nicotine dependence; Z79.891 Long term (current) use of opiate analgesic; Z85.89 Personal history of malignant neoplasm of other organs and systems; Z68.42 Body mass index [BMI] 45.0-49.9, adult; Z95.810 Presence of automatic (implantable) cardiac defibrillator; Z85.46 Personal history of malignant neoplasm of prostate
CPT/HCPCS: 36415; 80048; 81001; 83880; 85025; 87086; 96365; 96366; 96372; G0463; J1250; J1642; J3420

== ENCOUNTER → 2018-09-17 | Outpatient (CLI) | payer MEDICARE, OTHER ==
[2018-09-17] VITALS (7 sets, daily range): BP systolic 98–131; BP diastolic 45–69
[~2018-09-17] MED LIST changes: -CYANOCOBALAMIN (B-12) 1000 MCG/1 ML VIAL IM ONE; -CYANOCOBALAMIN (B-12) 1000 MCG/1 ML VIAL ONE
--- NOTE | 2018-09-17 08:55 | NUR ---
PT. TO CHF CLINIC FOR DOBUTREX INFUSION PER MD ORDER. SEE NSG ASSESS.
--- NOTE | 2018-09-17 09:10 | NUR ---
Initial PICC Line PICC line RUE assessed before access for ordered medications per MD. Port accessed per protocol flushed with 10 ml 0.9% NS prior to administration of ordered medication. See e-MAR for medications given during this visit.
--- NOTE | 2018-09-17 09:20 | NUR ---
Clinic Provider Clinic Provider into see pt with new orders received and carried out. Dobutamine gtt started at {5}mcg/kg/hr per MD order.
--- NOTE | 2018-09-17 10:40 | NUR ---
BRP WITHOUT ASSIST. MEDS RESUMED NO C/O. VSS.
[2018-09-17 12:09] LABS: Hematocrit 27.8 % (41.0-53.0); Hemoglobin 9.2 g/dL (13.5-17.5); Mean Corpuscular Hemoglobin 32.1 pg (28.0-32.0); Mean Corpuscular Hgb Conc. 33.1 g/dL (32.0-36.0); Mean Corpuscular Volume 96.9 fL (80.0-100.0); Platelet Count (auto) 253 10^3/uL (140-450); Red Blood Cells 2.87 10^6/uL (4.5-5.90); White Blood Cell 10.4 10^3/uL (4.4-10.8)
[2018-09-17 12:14] LABS: Red Cell Distribution Width 23.3 % (11.8-14.3)
[2018-09-17 12:15] LABS: Basophils % (manual) 0 (0.0-2.0); Blast Cells 0; Promyelocytes % 0; Reactive Lymphocytes 0
--- NOTE | 2018-09-17 12:30 | NUR ---
PICC Line meds Medication completed per MD order. See e-MAR for medications given during this visit. Patient tolerated medication well. PICC line flushed per protocol. Dressing chagned PRN via aseptic technique. Patient tolerated procedure well. Patient D/C'd stable with aftercare and follow up instructions per MD.
--- NOTE | 2018-09-17 12:36 | NUR ---
Discharge Instructions See e-MAR for any mediations given with this visit. Patient education given on disease process. Patient verbalized understanding. Previous labs reviewed. Patient discharged in stable condition with after care instructions and follow up appointment.PT. GIVEN SAMPLE OF ADCIRCA SINCE WE ARE STILL HAVING DIFFICULTY WITH P.A.
[2018-09-17 13:09] LABS: Calcium 8.5 mg/dL (8.5-10.1); Potassium 4.3 mmol/L (3.5-5.1)
[2018-09-17 13:12] LABS: BUN/Creatinine Ratio 34.6; Magnesium 2.3 mg/dL (1.6-2.6)
[2018-09-17 14:13] LABS: Band Neutrophils % (manual) 2; Eosinophils % (manual) 4 (0-7); Lymphocytes % (manual) 2 (10.0-50.0); Metamyelocytes % 2; Monocytes % (manual) 5 (0-12); Myelocytes % 5
== END | disposition home or self-care (01) ==
LOC: CHF HDHVI 09:17
PROVIDERS: ATTEND Internal Medicine Cardiovascular Disease
DX: I11.0 Hypertensive heart disease with heart failure (principal); I50.23 Acute on chronic systolic (congestive) heart failure; I50.32 Chronic diastolic (congestive) heart failure; E83.40 Disorders of magnesium metabolism, unspecified; D64.9 Anemia, unspecified; I48.0 Paroxysmal atrial fibrillation; I70.0 Atherosclerosis of aorta; I27.21 Secondary pulmonary arterial hypertension; I25.10 Atherosclerotic heart disease of native coronary artery without angina pectoris; I08.1 Rheumatic disorders of both mitral and tricuspid valves; J44.9 Chronic obstructive pulmonary disease, unspecified; E78.5 Hyperlipidemia, unspecified; F32.9 Major depressive disorder, single episode, unspecified; E66.01 Morbid (severe) obesity due to excess calories; I25.2 Old myocardial infarction; G47.30 Sleep apnea, unspecified; Z99.81 Dependence on supplemental oxygen; Z68.41 Body mass index [BMI] 40.0-44.9, adult; Z87.891 Personal history of nicotine dependence; Z85.01 Personal history of malignant neoplasm of esophagus; Z79.891 Long term (current) use of opiate analgesic; Z79.899 Other long term (current) drug therapy; Z85.46 Personal history of malignant neoplasm of prostate
CPT/HCPCS: 36415; 80048; 83735; 83880; 85007; 85027; 96365; 96366; G0463; J1250; J1642

== ENCOUNTER → 2018-09-20 | Outpatient (CLI) | payer MEDICARE, OTHER ==
[2018-09-20 12:01] VITALS: BP 102/46
--- NOTE | 2018-09-20 12:01 | NUR ---
IN TO CLINIC FOR SCHEDULED INFUSION. AMBULATING WITH USE OF WALKER. GAIT STEADY AND HOME OXYGEN IN USE AT 2LPM. RIGHT ARM PICC LINE INTACT AND SITE USED FOR INFUSION.DUE FOR DRESSING CHANGE BUT OLD DRESSING REMAINS INTACT. TOLERATED INFUSION WELL. VS WNL DURING INFUSION . SEE FREQUENT VITALS. IN ATTENDANCE. REMAINED ON OXYGEN DURING TREATMENT. COMPLIANT AND COOPERATIVE WITH REGIMEN. MEDICATION ADMINISTRATION DOBUTAMINE GTT AT 5 MCG/KG/MIN START AT 0900/STOP AT 1155 (33.6ML/HR) HEPARIN 150 UNITS IVP X 3 PORTS TO PICC LINE
== END | disposition home or self-care (01) ==
LOC: CHF HDHVI 09:15
PROVIDERS: ATTEND Internal Medicine Cardiovascular Disease
DX: I11.0 Hypertensive heart disease with heart failure (principal); I50.42 Chronic combined systolic (congestive) and diastolic (congestive) heart failure; C15.9 Malignant neoplasm of esophagus, unspecified; I48.2 Chronic atrial fibrillation; I25.10 Atherosclerotic heart disease of native coronary artery without angina pectoris; J44.9 Chronic obstructive pulmonary disease, unspecified; E11.9 Type 2 diabetes mellitus without complications; I70.0 Atherosclerosis of aorta; I25.2 Old myocardial infarction; E78.5 Hyperlipidemia, unspecified; F32.9 Major depressive disorder, single episode, unspecified; E66.01 Morbid (severe) obesity due to excess calories; Z68.41 Body mass index [BMI] 40.0-44.9, adult; Z87.891 Personal history of nicotine dependence; Z79.891 Long term (current) use of opiate analgesic; Z99.81 Dependence on supplemental oxygen
CPT/HCPCS: 96365; 96366; G0463; J1250; J1642

== ENCOUNTER → 2018-09-25 | Outpatient (CLI) | payer MEDICARE, OTHER ==
[2018-09-25] VITALS (8 sets, daily range): BP systolic 90–125; BP diastolic 38–57
--- NOTE | 2018-09-25 08:40 | NUR ---
CHF PT TO CHF CLINIC FOR MD WU ORDERED DOBUTAMINE THERAPY AT 5MCG/KG/MIN. PT HAS PICC 3 LUMEN R UPPER ARM .
--- NOTE | 2018-09-25 12:00 | NUR ---
IN TO CLINIC FOR SCHEDULED INFUSION. IN ATTENDANCE. AFFECT PLEASANT AND WITHOUT DISTRESS OR DISCOMFORT. OXYGEN IN USE AT 2LPM FROM HOME AND CONCURRENT DURING THERAPY. RIGHT ARM PICC LINE INTACT TRIPLE LUMEN AND WHITE PORT USED FOR INFUSION. TOLERATED INFUSION WELL. VS WNL. DOZED AND VISITED DURING ENTIRE INFUSION. SEE FREQUENT VITAL SIGNS. RIGHT ARM PICC LINE BENIGN POST INFUSION. DISCHARGED TO CARE OF IN NO DISTRESS OR DISCOMFORT AT TIME OF DISCHARGE, MEDICATION ADMINISTRATION DOBUTAMINE GTT AT 5 MCG/KG/MIN START AT 0847/STOP AT 1146 (33.63 ML/HR) HEPARIN 150 UNITS IVP TO WHITE PORT PICC LINE AT 1146
== END | disposition home or self-care (01) ==
LOC: CHF HDHVI 08:47
PROVIDERS: ATTEND Internal Medicine Cardiovascular Disease
DX: I11.0 Hypertensive heart disease with heart failure (principal); I50.42 Chronic combined systolic (congestive) and diastolic (congestive) heart failure; C15.9 Malignant neoplasm of esophagus, unspecified; D64.9 Anemia, unspecified; N50.89 Other specified disorders of the male genital organs; I25.10 Atherosclerotic heart disease of native coronary artery without angina pectoris; E11.9 Type 2 diabetes mellitus without complications; J44.9 Chronic obstructive pulmonary disease, unspecified; I42.0 Dilated cardiomyopathy; I70.0 Atherosclerosis of aorta; G47.30 Sleep apnea, unspecified; I48.2 Chronic atrial fibrillation; I25.2 Old myocardial infarction; I08.1 Rheumatic disorders of both mitral and tricuspid valves; I27.21 Secondary pulmonary arterial hypertension; E78.5 Hyperlipidemia, unspecified; E66.01 Morbid (severe) obesity due to excess calories; F32.9 Major depressive disorder, single episode, unspecified; Z99.81 Dependence on supplemental oxygen; Z79.891 Long term (current) use of opiate analgesic; Z79.899 Other long term (current) drug therapy; Z87.891 Personal history of nicotine dependence
CPT/HCPCS: 96365; 96366; G0463; J1250; J1642

== ENCOUNTER → 2018-09-27 | Outpatient (CLI) | payer MEDICARE, OTHER ==
[~2018-09-27] VITALS: Ht 1 cm; Wt 1.0 kg
[2018-09-27] VITALS (9 sets, daily range): BP systolic 107–128; BP diastolic 48–88
--- NOTE | 2018-09-27 08:40 | NUR ---
CHF PT TO CHF CLINIC FOR MD WU ORDERED DOBUTAMINE DRIP THERAPY
--- NOTE | 2018-09-27 08:55 | NUR ---
CHF Initial PICC Line PICC line assessed before access for ordered medications per MD. Port accessed per protocol flushed with 10 ml 0.9% NS prior to administration of ordered medication. See e-MAR for medications given during this visit. Clinic Provider Clinic Provider DR. WU, pt with new orders received and carried out. Dobutamine gtt started at {5}mcg/kg/hr per MD order. PORT ACCESS.
--- NOTE | 2018-09-27 12:15 | NUR ---
CHF PICC Line meds Medication completed per MD order. See e-MAR for medications given during this visit. Patient tolerated medication well. PICC line flushed per protocol. Patient tolerated procedure well. Patient D/C'd stable with aftercare and follow up instructions per MD.
[2018-09-27 12:17] LABS: Hematocrit 28.6 % (41.0-53.0); Hemoglobin 9.4 g/dL (13.5-17.5); Mean Corpuscular Hemoglobin 32.8 pg (28.0-32.0); Mean Corpuscular Volume 99.4 fL (80.0-100.0); Platelet Count (auto) 249 10^3/uL (140-450); Red Blood Cells 2.87 10^6/uL (4.5-5.90); White Blood Cell 11.1 10^3/uL (4.4-10.8)
--- NOTE | 2018-09-27 12:20 | NUR ---
CHF Discharge Instructions See e-MAR for any mediations given with this visit. Patient education given on disease process. Patient verbalized understanding. Previous labs reviewed. Patient discharged in stable condition with after care instructions and follow up appointment. FOLLOW UP CHF CLINIC MONDAY.
[2018-09-27 12:38] LABS: Basophils % (manual) 0 (0.0-2.0); Blast Cells 0; Myelocytes % 0; Promyelocytes % 0; Reactive Lymphocytes 0; Red Cell Distribution Width 23.6 % (11.8-14.3)
[2018-09-27 12:52] LABS: Albumin 3.5 g/dL (3.4-5.0); Calcium 8.2 mg/dL (8.5-10.1); Magnesium 2.2 mg/dL (1.6-2.6); Potassium 4.2 mmol/L (3.5-5.1)
[2018-09-27 12:58] LABS: BUN/Creatinine Ratio 32.3; Bilirubin, Total 0.5 mg/dL (0.2-1.0); Total Protein 8.4 g/dL (6.4-8.2)
[2018-09-27 13:19] LABS: Band Neutrophils % (manual) 1; Eosinophils % (manual) 4 (0-7); Lymphocytes % (manual) 1 (10.0-50.0); Metamyelocytes % 3; Monocytes % (manual) 6 (0-12)
== END | disposition home or self-care (01) ==
LOC: CHF HDHVI 09:10
PROVIDERS: ATTEND Internal Medicine Cardiovascular Disease
DX: I11.0 Hypertensive heart disease with heart failure (principal); I50.42 Chronic combined systolic (congestive) and diastolic (congestive) heart failure; D64.9 Anemia, unspecified; E55.9 Vitamin D deficiency, unspecified; J44.9 Chronic obstructive pulmonary disease, unspecified; I48.2 Chronic atrial fibrillation; I25.10 Atherosclerotic heart disease of native coronary artery without angina pectoris; I25.2 Old myocardial infarction; I42.9 Cardiomyopathy, unspecified; I27.21 Secondary pulmonary arterial hypertension; E11.9 Type 2 diabetes mellitus without complications; E66.01 Morbid (severe) obesity due to excess calories; G47.30 Sleep apnea, unspecified; E78.5 Hyperlipidemia, unspecified; F32.9 Major depressive disorder, single episode, unspecified; Z79.891 Long term (current) use of opiate analgesic; Z99.81 Dependence on supplemental oxygen; Z79.899 Other long term (current) drug therapy; Z87.891 Personal history of nicotine dependence; Z85.01 Personal history of malignant neoplasm of esophagus; Z68.42 Body mass index [BMI] 45.0-49.9, adult; Z85.46 Personal history of malignant neoplasm of prostate; Z95.810 Presence of automatic (implantable) cardiac defibrillator; Z87.440 Personal history of urinary (tract) infections
CPT/HCPCS: 36415; 80053; 82306; 83735; 83880; 85007; 85027; 96365; 96366; G0463; J1250; J1642

== ENCOUNTER → 2018-10-02 | Outpatient (CLI) | payer MEDICARE, OTHER ==
[2018-10-02] VITALS (8 sets, daily range): BP systolic 98–124; BP diastolic 42–73
--- NOTE | 2018-10-02 09:12 | NUR ---
IN TO CLINIC FOR INFUSION PER CLINIC PROVIDER. IN ATTENDANCE. OXYGEN IN USE FROM HOME AT 2LPM. SWITCHED TO OXYGEN AT BEDSIDE AT 2LPM. VS WNL. RIGHT ARM PICC LINE INTACT. Initial PICC Line PICC line assessed before access for ordered medications per MD. Port accessed per protocol flushed with 10 ml 0.9% NS prior to administration of ordered medication. See e-MAR for medications given during this visit. START DOBUTAMINE GTT AT 5 MCG/KG/MIN.
--- NOTE | 2018-10-02 11:00 | NUR ---
PT AND INSTRUCTED ON 2000 ML FLUID RESTRICTION AND ALL FOODS THAT ARE CONSIDERED LIQUID. PT HAS NOT BEEN WATCHING TOTAL FLUID INTAKE AND WILL START TO FOLLOW FLUID RESTRICTION. REVIEWED DIET REGIMEN AND WAYS TO MANAGE FLUID RESTRICTION. PT AND REPEATED BACK INSTRUCTIONS.
[2018-10-02 11:48] LABS: Hematocrit 28.8 % (41.0-53.0); Hemoglobin 9.5 g/dL (13.5-17.5); Mean Corpuscular Hemoglobin 33.4 pg (28.0-32.0); Mean Corpuscular Volume 101.1 fL (80.0-100.0); Platelet Count (auto) 238 10^3/uL (140-450); Red Blood Cells 2.85 10^6/uL (4.5-5.90); White Blood Cell 12.4 10^3/uL (4.4-10.8)
[2018-10-02 11:50] LABS: Potassium 4.6 mmol/L (3.5-5.1)
--- NOTE | 2018-10-02 11:50 | NUR ---
UP TO RESTROOM TO VOID. TOOK OFF OXYGEN FOR RESTROOM. UPON RETURN FROM RESTROOM PT FOUND TO BE PALE AND DIZZY AND GAIT UNSTEADY. 2 PERSON ASSIST TO SITTING POSITION IN CHAIR. SPO2 NOTED DOWN TO 66 PERCENT WITH ACCURATE PLETH. OXYGEN APPLIED AT 3 LPM WITH SPO2 UP TO 95 PERCENT THEN OXYGEN DECREASED TO 2 LPM. IN ATTENDANCE. PT INSTRUCTED IN PURSED LIP BREATHING AND USE OF OXYGEN AT ALL TIMES WHILE AT HOME AND IN CLINIC. REPEAT BACK INSTRUCTIONS OBTAINED.
[2018-10-02 11:53] LABS: Red Cell Distribution Width 23.6 % (11.8-14.3)
[2018-10-02 11:55] LABS: Basophils % (manual) 0 (0.0-2.0); Blast Cells 0; Eosinophils % (manual) 0 (0-7); Promyelocytes % 0; Reactive Lymphocytes 0
--- NOTE | 2018-10-02 12:10 | NUR ---
Discharge Instructions See e-MAR for any mediations given with this visit. Patient education given on disease process. Patient verbalized understanding. Previous labs reviewed. Patient discharged in stable condition with after care instructions and follow up appointment FOR 10/04/18 MEDICATION ADMINISTRATION DOBUTAMINE GTT AT 5 MCG/KG/MIN START AT 0908/STOP AT 1200 (34.02 ML/HR) HEPARIN 150 UNITS IVP TO RIGHT ARM PICC LINE
[2018-10-02 12:23] LABS: Band Neutrophils % (manual) 4; Lymphocytes % (manual) 5 (10.0-50.0); Metamyelocytes % 4; Monocytes % (manual) 6 (0-12); Myelocytes % 4
== END | disposition home or self-care (01) ==
LOC: CHF HDHVI 09:13
PROVIDERS: ATTEND Internal Medicine Cardiovascular Disease
DX: I11.0 Hypertensive heart disease with heart failure (principal); I50.42 Chronic combined systolic (congestive) and diastolic (congestive) heart failure; J44.9 Chronic obstructive pulmonary disease, unspecified; I25.10 Atherosclerotic heart disease of native coronary artery without angina pectoris; E11.9 Type 2 diabetes mellitus without complications; I48.2 Chronic atrial fibrillation; I25.2 Old myocardial infarction; I27.21 Secondary pulmonary arterial hypertension; I25.5 Ischemic cardiomyopathy; I70.0 Atherosclerosis of aorta; G47.30 Sleep apnea, unspecified; E66.01 Morbid (severe) obesity due to excess calories; I42.0 Dilated cardiomyopathy; E87.6 Hypokalemia; E78.5 Hyperlipidemia, unspecified; D64.9 Anemia, unspecified; R94.4 Abnormal results of kidney function studies; F32.9 Major depressive disorder, single episode, unspecified; Z95.810 Presence of automatic (implantable) cardiac defibrillator; Z99.81 Dependence on supplemental oxygen; Z79.891 Long term (current) use of opiate analgesic; Z85.01 Personal history of malignant neoplasm of esophagus; Z85.46 Personal history of malignant neoplasm of prostate; Z68.41 Body mass index [BMI] 40.0-44.9, adult; Z79.899 Other long term (current) drug therapy; Z87.891 Personal history of nicotine dependence
CPT/HCPCS: 36415; 82565; 84132; 84520; 85007; 85027; 96365; 96366; G0463; J1250; J1642

== ENCOUNTER → 2018-10-04 | Outpatient (CLI) | payer MEDICARE, OTHER ==
[2018-10-04] VITALS (8 sets, daily range): BP systolic 99–126; BP diastolic 50–63
--- NOTE | 2018-10-04 08:45 | NUR ---
IN TO CLINIC FOR SCHEDULED INFUSION. WEARING OXYGEN FROM HOME AT 2LPM WITH SPO2 IN HIGH 90'S. DENIES ANY DIZZINESS OR ANY EPISODES OF BEING WITHOUT OXYGEN. IN ATTENDANCE. RIGHT ARM PICC LINE DRAWN FOR LABS AND FLUSHED FOR USE WITH INFUSION.
--- NOTE | 2018-10-04 09:24 | NUR ---
START DOBUTAMINE GTT TO RIGHT ARM PICC.
--- NOTE | 2018-10-04 10:30 | NUR ---
DOBUTAMINE GTT IN PROGRESS, TOLERATING WELL. DOZING INTERMITTENTLY.
--- NOTE | 2018-10-04 11:30 | NUR ---
VS WNL. REMAINS ON OXYGEN. WITHOUT COMPLAINT.
[2018-10-04 11:52] LABS: Hemoglobin 9.2 g/dL (13.5-17.5); Mean Corpuscular Hemoglobin 33.1 pg (28.0-32.0); Mean Corpuscular Hgb Conc. 32.9 g/dL (32.0-36.0); Mean Corpuscular Volume 100.8 fL (80.0-100.0); Platelet Count (auto) 232 10^3/uL (140-450); Red Blood Cells 2.78 10^6/uL (4.5-5.90)
[2018-10-04 12:04] LABS: Potassium 4.5 mmol/L (3.5-5.1)
[2018-10-04 12:07] LABS: Red Cell Distribution Width 23.8 % (11.8-14.3)
[2018-10-04 12:09] LABS: Basophils % (manual) 0 (0.0-2.0); Blast Cells 0; Promyelocytes % 0; Reactive Lymphocytes 0
[2018-10-04 12:12] LABS: BUN/Creatinine Ratio 30.1; Calcium 8.4 mg/dL (8.5-10.1)
--- NOTE | 2018-10-04 12:20 | NUR ---
INFUSION COMPLETED. PICC Line meds Medication completed per MD order. See e-MAR for medications given during this visit. Patient tolerated medication well. PICC line flushed per protocol. Dressing chaNged PRN via aseptic technique. Patient tolerated procedure well. Patient D/C'd stable with aftercare and follow up instructions per MD. Discharge Instructions See e-MAR for any mediations given with this visit. Patient education given on disease process. Patient verbalized understanding. Previous labs reviewed. Patient discharged in stable condition with after care instructions and follow up appointment FOR 10/09/18 MEDICATION ADMINISTRATION DOBUTAMINE GTT AT 5 MCG/KG/MIN START AT 0924/STOP AT 1220 (33.63ML/HR) HEPARIN 150 UNIT IVP TO PICC LINE PORT AT 1225
[2018-10-04 12:40] LABS: Band Neutrophils % (manual) 3; Eosinophils % (manual) 4 (0-7); Lymphocytes % (manual) 3 (10.0-50.0); Metamyelocytes % 2; Monocytes % (manual) 13 (0-12); Myelocytes % 3
== END | disposition home or self-care (01) ==
LOC: CHF HDHVI 08:52
PROVIDERS: ATTEND Internal Medicine Cardiovascular Disease
DX: I11.0 Hypertensive heart disease with heart failure (principal); I50.42 Chronic combined systolic (congestive) and diastolic (congestive) heart failure; D64.9 Anemia, unspecified; C61 Malignant neoplasm of prostate; I48.2 Chronic atrial fibrillation; I25.10 Atherosclerotic heart disease of native coronary artery without angina pectoris; I42.9 Cardiomyopathy, unspecified; I27.21 Secondary pulmonary arterial hypertension; I25.2 Old myocardial infarction; I48.0 Paroxysmal atrial fibrillation; E11.9 Type 2 diabetes mellitus without complications; J44.9 Chronic obstructive pulmonary disease, unspecified; G47.30 Sleep apnea, unspecified; E78.5 Hyperlipidemia, unspecified; F32.9 Major depressive disorder, single episode, unspecified; E66.01 Morbid (severe) obesity due to excess calories; Z79.891 Long term (current) use of opiate analgesic; Z79.899 Other long term (current) drug therapy; Z87.891 Personal history of nicotine dependence; Z85.01 Personal history of malignant neoplasm of esophagus; Z99.81 Dependence on supplemental oxygen; Z68.42 Body mass index [BMI] 45.0-49.9, adult; Z95.810 Presence of automatic (implantable) cardiac defibrillator
CPT/HCPCS: 36415; 80048; 85007; 85027; 96365; 96366; G0463; J1250; J1642

== ENCOUNTER → 2018-10-09 | Outpatient (CLI) | payer MEDICARE, OTHER ==
[2018-10-09] VITALS (8 sets, daily range): BP systolic 101–127; BP diastolic 44–83
[~2018-10-09] MED LIST changes: +CYANOCOBALAMIN (B-12) 1000 MCG/1 ML VIAL IM ONE; +CYANOCOBALAMIN (B-12) 1000 MCG/1 ML VIAL ONE
--- NOTE | 2018-10-09 08:30 | NUR ---
IN TO CLINIC FOR SCHEDULED INFUSION OF DOBUTAMINE. IN ATTENDANCE. PT AMBULATORY WITH USE OF WALKER AND OXYGEN AT 2 LPM. GAIT STEADY. AFFECT PLEASANT AND CHEERFUL. DENIES DISTRESS. LABS DRAWN AND SENT PER PROTOCOL FROM RIGHT ARM PICC LINE. CARDIODYNAMICS DONE.
--- NOTE | 2018-10-09 12:01 | NUR ---
DOBUTAMINE INFUSION COMPLETED. RIGHT ARM PICC LINE DRESSING FOUND TO BE PEELING AROUND EDGES OF OLD DRESSING DOWN TO BIOPATCH AT INSERTION SITE OF PICC LINE. DRESSING LAST CHANGED ON 10/03/18 AND IS DUE TO BE CHANGED TOMORROW BY HOME HEALTH. NECESSARY TO CHANGE DRESSING NOW DUE TO NON-INTACT COVERING. PICC Line Dressing Changes PICC line dressing change done with a sterile technique. Cleansed with chloraprep scrub. Stat lock, and bio-patch aPPLIED. Occlusive dressing applied. Changed claves X 3 AND HEPARIN FLUSH TO EACH PORT. See e-MAR for medications given during this visit.
--- NOTE | 2018-10-09 12:23 | NUR ---
DISCHARGED TO HOME CARE WITH IN ATTENDANCE. HOME OXYGEN IN USE WITH WALKER. PICC DRESSING INTACT AND SITE FREE OF ANY REDNESS OR SIGNS OF INFECTION. ALL CLAVES CHANGED AND FLUSHED. DISCHARGED TO HOME CARE.
[2018-10-09 12:30] LABS: Potassium 4.5 mmol/L (3.5-5.1)
== END | disposition home or self-care (01) ==
LOC: CHF HDHVI 08:33
PROVIDERS: ATTEND Internal Medicine Cardiovascular Disease
DX: I11.0 Hypertensive heart disease with heart failure (principal); I50.42 Chronic combined systolic (congestive) and diastolic (congestive) heart failure; I27.21 Secondary pulmonary arterial hypertension; R94.4 Abnormal results of kidney function studies; E87.6 Hypokalemia; C61 Malignant neoplasm of prostate; I70.0 Atherosclerosis of aorta; I48.2 Chronic atrial fibrillation; E78.5 Hyperlipidemia, unspecified; F32.9 Major depressive disorder, single episode, unspecified; E66.01 Morbid (severe) obesity due to excess calories; I25.10 Atherosclerotic heart disease of native coronary artery without angina pectoris; J44.9 Chronic obstructive pulmonary disease, unspecified; E11.9 Type 2 diabetes mellitus without complications; I42.9 Cardiomyopathy, unspecified; I25.2 Old myocardial infarction; Z79.899 Other long term (current) drug therapy; Z85.01 Personal history of malignant neoplasm of esophagus; Z87.891 Personal history of nicotine dependence; Z99.81 Dependence on supplemental oxygen; Z95.810 Presence of automatic (implantable) cardiac defibrillator; Z68.41 Body mass index [BMI] 40.0-44.9, adult; Z79.891 Long term (current) use of opiate analgesic
CPT/HCPCS: 36415; 82565; 84132; 84520; 93701; 96365; 96366; 96372; G0463; J1250; J1642; J3420

== ENCOUNTER → 2018-10-11 | Outpatient (CLI) | payer MEDICARE, OTHER ==
[~2018-10-11] VITALS: Ht 30.5 cm; Wt 111.6 kg
[2018-10-11] VITALS (9 sets, daily range): BP systolic 106–148; BP diastolic 45–69
[~2018-10-11] MED LIST changes: -CYANOCOBALAMIN (B-12) 1000 MCG/1 ML VIAL IM ONE; -CYANOCOBALAMIN (B-12) 1000 MCG/1 ML VIAL ONE
--- NOTE | 2018-10-11 12:30 | NUR ---
COMPLETED SCHEDULED INFUSION. GAIT STEADY AND USED OXYGEN DURING ENTIRE INFUSION AND WHILE UP TO RESTROOM. VS WNL. TOLERATED WELL. COPIES OF MEDICAL RECORDS GIVEN TO PATIENT FOR FOLLOWUP WITH [facility] [employer]. IN ATTENDANCE. RIGHT ARM PICC LINE USED FOR INFUSION AND REMAINS BENIGN POST INFUSION. PICC Line meds Medication completed per MD order. See e-MAR for medications given during this visit. Patient tolerated medication well. PICC line flushed per protocol. Patient tolerated procedure well. Patient D/C'd stable with aftercare and follow up instructions per MD. MEDICATION ADMINISTRATION DOBUTAMINE AT 5 MCG /KG/MIN START AT 0916/STOP AT 1216 (33.69 ML/HR0 HEPARIN 150 UNITS IVP TO PICC LINE X 3
== END | disposition home or self-care (01) ==
LOC: CHF HDHVI 09:11
PROVIDERS: ATTEND Internal Medicine Cardiovascular Disease
DX: I27.21 Secondary pulmonary arterial hypertension (principal); I11.0 Hypertensive heart disease with heart failure; I50.42 Chronic combined systolic (congestive) and diastolic (congestive) heart failure; I70.0 Atherosclerosis of aorta; I25.10 Atherosclerotic heart disease of native coronary artery without angina pectoris; I42.9 Cardiomyopathy, unspecified; I48.2 Chronic atrial fibrillation; J44.9 Chronic obstructive pulmonary disease, unspecified; E78.5 Hyperlipidemia, unspecified; F32.9 Major depressive disorder, single episode, unspecified; E66.01 Morbid (severe) obesity due to excess calories; I25.2 Old myocardial infarction; E11.9 Type 2 diabetes mellitus without complications; Z99.81 Dependence on supplemental oxygen; Z79.891 Long term (current) use of opiate analgesic; Z68.41 Body mass index [BMI] 40.0-44.9, adult; Z85.01 Personal history of malignant neoplasm of esophagus; Z85.46 Personal history of malignant neoplasm of prostate; Z87.891 Personal history of nicotine dependence; Z95.810 Presence of automatic (implantable) cardiac defibrillator
CPT/HCPCS: 96365; 96366; G0463; J1250; J1642

== ENCOUNTER → 2018-10-16 | Outpatient (CLI) | payer MEDICARE, OTHER ==
[2018-10-16] VITALS (7 sets, daily range): BP systolic 99–130; BP diastolic 39–79
--- NOTE | 2018-10-16 09:00 | NUR ---
IN FOR SCHEDULED INFUSION. Initial PICC Line PICC line RIGHT ARM assessed before access for ordered medications per MD. Port accessed per protocol flushed with 10 ml 0.9% NS prior to administration of ordered medication. See e-MAR for medications given during this visit. Clinic Provider Clinic Provider into see pt with new orders received and carried out. START DOBUTAMINE GTT AT 5 MCG/KG/MIN.
--- NOTE | 2018-10-16 10:51 | NUR ---
DOZING. VS WNL. TOLERATING INFUSION WELL. DOBUTAMINE GTT ONGOING.
[2018-10-16 12:10] LABS: Hemoglobin 9.5 g/dL (13.5-17.5)
--- NOTE | 2018-10-16 12:10 | NUR ---
PICC Line meds Medication completed per MD order. See e-MAR for medications given during this visit. Patient tolerated medication well. PICC line flushed per protocol. Discharge Instructions See e-MAR for any mediations given with this visit. Patient education given on disease process. Patient verbalized understanding. Previous labs reviewed. DISCHARGED TO CARE OF WITH OXYGEN IN USE AT 3 LPM. Patient discharged in stable condition with after care instructions and follow up appointment FOR 10/18/18. MEDICATION ADMINISTRATION DOBUTAMINE GTT AT 5 MCG/KG/MIN START AT 0900/STOP AT 1200 HEPARIN 1.5 ML X 3 PICC LINE PORTS
[2018-10-16 12:12] LABS: Mean Corpuscular Hemoglobin 34.2 pg (28.0-32.0); Mean Corpuscular Hgb Conc. 33.8 g/dL (32.0-36.0); Mean Corpuscular Volume 101.4 fL (80.0-100.0); Platelet Count (auto) 243 10^3/uL (140-450); Red Blood Cells 2.76 10^6/uL (4.5-5.90); White Blood Cell 10.2 10^3/uL (4.4-10.8)
[2018-10-16 12:37] LABS: Red Cell Distribution Width 22.3 % (11.8-14.3)
[2018-10-16 12:38] LABS: Basophils % (manual) 0 (0.0-2.0); Blast Cells 0; Promyelocytes % 0; Reactive Lymphocytes 0
[2018-10-16 12:48] LABS: Potassium 4.7 mmol/L (3.5-5.1)
[2018-10-16 13:39] LABS: Band Neutrophils % (manual) 2; Eosinophils % (manual) 4 (0-7); Lymphocytes % (manual) 6 (10.0-50.0); Metamyelocytes % 1; Monocytes % (manual) 6 (0-12); Myelocytes % 3
== END | disposition home or self-care (01) ==
LOC: CHF HDHVI 08:46
PROVIDERS: ATTEND Internal Medicine Cardiovascular Disease
DX: I11.0 Hypertensive heart disease with heart failure (principal); I50.9 Heart failure, unspecified; I50.42 Chronic combined systolic (congestive) and diastolic (congestive) heart failure; I27.21 Secondary pulmonary arterial hypertension; C15.9 Malignant neoplasm of esophagus, unspecified; D64.9 Anemia, unspecified; R94.4 Abnormal results of kidney function studies; E87.6 Hypokalemia; I25.10 Atherosclerotic heart disease of native coronary artery without angina pectoris; I48.2 Chronic atrial fibrillation; J44.9 Chronic obstructive pulmonary disease, unspecified; E78.5 Hyperlipidemia, unspecified; I25.2 Old myocardial infarction; F32.9 Major depressive disorder, single episode, unspecified; E66.01 Morbid (severe) obesity due to excess calories; I48.0 Paroxysmal atrial fibrillation; K76.6 Portal hypertension; Z79.891 Long term (current) use of opiate analgesic; Z68.41 Body mass index [BMI] 40.0-44.9, adult; Z85.46 Personal history of malignant neoplasm of prostate; Z79.899 Other long term (current) drug therapy
CPT/HCPCS: 36415; 82565; 83880; 84132; 84520; 85007; 85027; 96365; 96366; G0463; J1250; J1642

== ENCOUNTER → 2018-10-19 | Outpatient (CLI) | payer MEDICARE, OTHER ==
[2018-10-19] VITALS (7 sets, daily range): BP systolic 93–123; BP diastolic 46–70
[~2018-10-19] MED LIST changes: +DOBUTamine 1000MCG/ML 250 ML IV SCH
--- NOTE | 2018-10-19 08:16 | NUR ---
IN FOR SCHEDULED INFUSION AND FOR APPOINTMENT WITH PHYSICIAN. RIGHT ARM PICC LINE INTACT AND ACCESSED FOR INFUSION. Initial PICC Line PICC line assessed before access for ordered medications per MD. Port accessed per protocol flushed with 10 ml 0.9% NS prior to administration of ordered medication. See e-MAR for medications given during this visit.
--- NOTE | 2018-10-19 08:35 | NUR ---
Clinic Provider Clinic Provider into see pt with new orders received and carried out. START DOBUTAMINE GTT AT 5 MCG/KG/MIN.
--- NOTE | 2018-10-19 09:30 | NUR ---
DOZING. OXYGEN AT 3LPM WITH SPO2 AT 97 %. WITHOUT DISTRESS.
--- NOTE | 2018-10-19 11:35 | NUR ---
DOBUTAMINE INFUSION COMPLETED. TOLERATED WELL.
--- NOTE | 2018-10-19 11:40 | NUR ---
PICC Line meds Medication completed per MD order. See e-MAR for medications given during this visit. Patient tolerated medication well. PICC line flushed per protocol. Patient tolerated procedure well. PT SENT FOR PHYSICIAN APPOINTMENT WITH DR WU. IN ATTENDANCE, BONITA RN IN ATTENDANCE. PT AMBULATING WITH USE OF WALKER AND OXYGEN. MEDICATION ADMINISTRATION DOBUTAMINE GTT AT 5 MCG/KG/MIN START AT 0835/STOP AT 1135 (33.27ML/HR) HEPARIN 150 UNITS IVP TO PICC LINE X 3 PORTS
== END | disposition home or self-care (01) ==
LOC: CHF HDHVI 08:24
PROVIDERS: ATTEND Internal Medicine Cardiovascular Disease
DX: J98.4 Other disorders of lung (principal); I11.0 Hypertensive heart disease with heart failure; I50.42 Chronic combined systolic (congestive) and diastolic (congestive) heart failure; I25.10 Atherosclerotic heart disease of native coronary artery without angina pectoris; I48.2 Chronic atrial fibrillation; J44.9 Chronic obstructive pulmonary disease, unspecified; I25.2 Old myocardial infarction; I70.0 Atherosclerosis of aorta; I42.9 Cardiomyopathy, unspecified; E11.9 Type 2 diabetes mellitus without complications; E78.5 Hyperlipidemia, unspecified; F32.9 Major depressive disorder, single episode, unspecified; E66.01 Morbid (severe) obesity due to excess calories; Z68.41 Body mass index [BMI] 40.0-44.9, adult; Z85.01 Personal history of malignant neoplasm of esophagus; Z87.891 Personal history of nicotine dependence; Z95.810 Presence of automatic (implantable) cardiac defibrillator; Z79.891 Long term (current) use of opiate analgesic; Z79.899 Other long term (current) drug therapy; Z85.46 Personal history of malignant neoplasm of prostate; Z99.81 Dependence on supplemental oxygen
CPT/HCPCS: 96365; 96366; G0463; J1250; J1642

== ENCOUNTER → 2018-10-23 | Outpatient (CLI) | payer MEDICARE, OTHER ==
[2018-10-23] VITALS (8 sets, daily range): BP systolic 114–131; BP diastolic 49–61
[~2018-10-23] MED LIST changes: -DOBUTamine 1000MCG/ML 250 ML IV SCH
--- NOTE | 2018-10-23 08:48 | NUR ---
CHF PT TO CHF CLINIC FOR MD WU ORDERED DOBUTAMINE THERAPY AT 5 MCG/KG/MIN FOR MANAGEMENT OF CHF, CAD.
[2018-10-23] MEDS: DOBUTamine 1000MCG/ML 250 ML IV SCH ×2 (09:10→12:50)
--- NOTE | 2018-10-23 09:10 | NUR ---
CHF Initial PICC Line PICC line assessed before access for ordered medications per MD. SALCIDO LINE USED . LABS DRAWN PRE MD ORDER. Port accessed per protocol flushed with 10 ml 0.9% NS prior to administration of ordered medication. See e-MAR for medications given during this visit. Clinic Provider Clinic Provide DR. WU pt with new orders received and carried out. Dobutamine gtt started at {5}mcg/kg/hr per MD order.
--- NOTE | 2018-10-23 11:31 | NUR ---
UP TO VOID WITH USE OF WALKER AND OXYGEN AT 2 LPM. GAIT STEADY .
[2018-10-23 12:22] LABS: Hemoglobin 10.2 g/dL (13.5-17.5)
[2018-10-23 12:24] LABS: Hematocrit 29.2 % (41.0-53.0); Mean Corpuscular Hemoglobin 35.3 pg (28.0-32.0); Mean Corpuscular Hgb Conc. 34.9 g/dL (32.0-36.0); Mean Corpuscular Volume 101.1 fL (80.0-100.0); Platelet Count (auto) 257 10^3/uL (140-450); Red Blood Cells 2.89 10^6/uL (4.5-5.90); White Blood Cell 10.5 10^3/uL (4.4-10.8)
--- NOTE | 2018-10-23 12:28 | NUR ---
PICC Line meds Medication completed per MD order. See e-MAR for medications given during this visit. Patient tolerated medication well. PICC line flushed per protocol. Discharge Instructions See e-MAR for any mediations given with this visit. Patient education given on disease process. Patient verbalized understanding. Previous labs reviewed. Patient discharged in stable condition with after care instructions and follow up appointment FOR Monday10/26/18 MEDICATION ADMINISTRATION DOBUTAMINE AT 5 MCG/KG/MIN START AT 0910/STOP AT 1210 (30.3ML/HR ) HEPARIN 150 UNITS IVP TO PICC LINE [place]E PORT AT 1215
[2018-10-23 12:30] LABS: Red Cell Distribution Width 21.5 % (11.8-14.3)
[2018-10-23 12:31] LABS: Band Neutrophils % (manual) 0; Basophils % (manual) 0 (0.0-2.0); Blast Cells 0; Myelocytes % 0; Promyelocytes % 0; Reactive Lymphocytes 0
[2018-10-23 12:32] LABS: BUN/Creatinine Ratio 32.4; Calcium 8.9 mg/dL (8.5-10.1); Potassium 4.3 mmol/L (3.5-5.1)
[2018-10-23 14:00] LABS: Eosinophils % (manual) 3 (0-7); Lymphocytes % (manual) 7 (10.0-50.0); Metamyelocytes % 5; Monocytes % (manual) 9 (0-12)
== END | disposition home or self-care (01) ==
LOC: CHF HDHVI 08:54
PROVIDERS: ATTEND Internal Medicine Cardiovascular Disease
DX: I11.0 Hypertensive heart disease with heart failure (principal); I50.42 Chronic combined systolic (congestive) and diastolic (congestive) heart failure; D64.9 Anemia, unspecified; I25.10 Atherosclerotic heart disease of native coronary artery without angina pectoris; I48.2 Chronic atrial fibrillation; E78.5 Hyperlipidemia, unspecified; F32.9 Major depressive disorder, single episode, unspecified; E66.01 Morbid (severe) obesity due to excess calories; I25.2 Old myocardial infarction; E11.9 Type 2 diabetes mellitus without complications; J44.9 Chronic obstructive pulmonary disease, unspecified; Z87.891 Personal history of nicotine dependence; Z95.810 Presence of automatic (implantable) cardiac defibrillator; Z85.46 Personal history of malignant neoplasm of prostate; Z85.01 Personal history of malignant neoplasm of esophagus; Z85.89 Personal history of malignant neoplasm of other organs and systems; Z79.891 Long term (current) use of opiate analgesic; Z99.81 Dependence on supplemental oxygen; Z79.899 Other long term (current) drug therapy; Z87.440 Personal history of urinary (tract) infections
CPT/HCPCS: 36415; 80048; 83880; 85007; 85027; 96365; 96366; G0463; J1250; J1642

== ENCOUNTER → 2018-10-26 | Outpatient (CLI) | payer MEDICARE, OTHER ==
--- NOTE | 2018-10-26 09:00 | NUR ---
Initial PICC Line PICC line JUNIOR assessed before access for ordered medications per MD. Port accessed per protocol flushed with 10 ml 0.9% NS prior to administration of ordered medication. See e-MAR for medications given during this visit.
[2018-10-26 09:02] VITALS: BP 133/67
[2018-10-26 09:30] VITALS: BP 135/57
[2018-10-26 10:00] VITALS: BP 123/63
[2018-10-26 10:15] VITALS: BP 128/67
[2018-10-26 10:30] VITALS: BP 137/64
[2018-10-26 12:28] VITALS: BP 121/62
--- NOTE | 2018-10-26 12:28 | NUR ---
CHF CLINIC Discharge Instructions See e-MAR for any mediations given with this visit. Patient education given on disease process. Patient verbalized understanding. Previous labs reviewed. Patient discharged in stable condition with after care instructions and follow up appointment. NOTE DOBUTAMINE [id number] ADMIN BY WHITNEY RICHARDSNO HEPARIN ADMIN BY WHITNEY RICHARDSON
== END | disposition home or self-care (01) ==
LOC: CHF HDHVI 08:55
PROVIDERS: ATTEND Internal Medicine Cardiovascular Disease
DX: I11.0 Hypertensive heart disease with heart failure (principal); I50.23 Acute on chronic systolic (congestive) heart failure; I50.32 Chronic diastolic (congestive) heart failure; I25.5 Ischemic cardiomyopathy; I48.2 Chronic atrial fibrillation; J98.4 Other disorders of lung; K76.6 Portal hypertension; I25.10 Atherosclerotic heart disease of native coronary artery without angina pectoris; I25.2 Old myocardial infarction; I42.9 Cardiomyopathy, unspecified; E78.5 Hyperlipidemia, unspecified; I27.21 Secondary pulmonary arterial hypertension; E11.9 Type 2 diabetes mellitus without complications; E66.01 Morbid (severe) obesity due to excess calories; J44.9 Chronic obstructive pulmonary disease, unspecified; G47.30 Sleep apnea, unspecified; F32.9 Major depressive disorder, single episode, unspecified; Z99.81 Dependence on supplemental oxygen; Z79.891 Long term (current) use of opiate analgesic; Z95.810 Presence of automatic (implantable) cardiac defibrillator; Z68.42 Body mass index [BMI] 45.0-49.9, adult; Z85.46 Personal history of malignant neoplasm of prostate; Z79.899 Other long term (current) drug therapy; Z85.01 Personal history of malignant neoplasm of esophagus; Z87.891 Personal history of nicotine dependence; Z87.440 Personal history of urinary (tract) infections
CPT/HCPCS: 93306; 96365; 96366; G0463; J1250; J1642

== ENCOUNTER → 2018-10-30 | Outpatient (CLI) | payer MEDICARE, OTHER ==
[2018-10-30] VITALS (8 sets, daily range): BP systolic 103–151; BP diastolic 47–83
[2018-10-30 11:54] LABS: Hematocrit 29.7 % (41.0-53.0); Hemoglobin 10.1 g/dL (13.5-17.5); Mean Corpuscular Hgb Conc. 33.9 g/dL (32.0-36.0); White Blood Cell 10.3 10^3/uL (4.4-10.8)
[2018-10-30 12:01] LABS: Mean Corpuscular Hemoglobin 35.3 pg (28.0-32.0); Mean Corpuscular Volume 104.1 fL (80.0-100.0); Platelet Count (auto) 238 10^3/uL (140-450); Red Blood Cells 2.85 10^6/uL (4.5-5.90)
[2018-10-30 12:06] LABS: BUN/Creatinine Ratio 27.6; Calcium 8.9 mg/dL (8.5-10.1); Potassium 4.3 mmol/L (3.5-5.1)
--- NOTE | 2018-10-30 12:20 | NUR ---
CHF CLINIC Discharge Instructions See e-MAR for any mediations given with this visit. Patient education given on disease process. Patient verbalized understanding. Previous labs reviewed. Patient discharged in stable condition with after care instructions and follow up appointment ON MONDAY. NOTE DOBUTAMINE [id number] ADMIN BY ZAIRA RICHARDSON HEPARIN ADMIN BY ZAIRA RICHARDSON
[2018-10-30 12:24] LABS: Red Cell Distribution Width 20.1 % (11.8-14.3)
[2018-10-30 13:26] LABS: Blast Cells 0; Metamyelocytes % 0; Promyelocytes % 0; Reactive Lymphocytes 0
[2018-10-30 13:28] LABS: Band Neutrophils % (manual) 3; Basophils % (manual) 1 (0.0-2.0); Eosinophils % (manual) 3 (0-7); Lymphocytes % (manual) 6 (10.0-50.0); Monocytes % (manual) 5 (0-12); Myelocytes % 3
== END | disposition home or self-care (01) ==
LOC: CHF HDHVI 09:01
PROVIDERS: ATTEND Internal Medicine Cardiovascular Disease
DX: I11.0 Hypertensive heart disease with heart failure (principal); I50.9 Heart failure, unspecified; D64.9 Anemia, unspecified; I50.23 Acute on chronic systolic (congestive) heart failure; I50.32 Chronic diastolic (congestive) heart failure; I25.10 Atherosclerotic heart disease of native coronary artery without angina pectoris; J44.9 Chronic obstructive pulmonary disease, unspecified; E78.5 Hyperlipidemia, unspecified; I25.2 Old myocardial infarction; F32.9 Major depressive disorder, single episode, unspecified; Z79.891 Long term (current) use of opiate analgesic; Z87.891 Personal history of nicotine dependence; Z95.810 Presence of automatic (implantable) cardiac defibrillator; Z85.01 Personal history of malignant neoplasm of esophagus; Z85.46 Personal history of malignant neoplasm of prostate
CPT/HCPCS: 36415; 80048; 83880; 85007; 85025; 85027; 96365; 96366; G0463; J1250; J1642

== ENCOUNTER → 2018-11-02 | Outpatient (CLI) | payer MEDICARE, OTHER ==
[2018-11-02] VITALS (8 sets, daily range): BP systolic 97–140; BP diastolic 50–65
[~2018-11-02] VITALS: Ht 30.5 cm; Wt 110.4 kg
--- NOTE | 2018-11-02 08:48 | NUR ---
Initial PICC Line PICC line RIGHT ARM assessed before access for ordered medications per MD. Port accessed per protocol flushed with 10 ml 0.9% NS prior to administration of ordered medication. Clinic Provider Clinic Provider into see pt with new orders received and carried out. Dobutamine gtt started at {5}mcg/kg/hr per MD order.
--- NOTE | 2018-11-02 12:00 | NUR ---
CHF CLINIC Discharge Instructions See e-MAR for any mediations given with this visit. Patient education given on disease process. Patient verbalized understanding. Previous labs reviewed. Patient discharged in stable condition with after care instructions and follow up appointment. NOTE DOBUTAMINE INFUSION [id number] ADMIN BY ZAIRA RICHARDSON HEPARIN X3 ADMIN BY ZAIRA RICHARDSON
== END | disposition home or self-care (01) ==
LOC: CHF HDHVI 08:44
PROVIDERS: ATTEND Internal Medicine Cardiovascular Disease
DX: I27.21 Secondary pulmonary arterial hypertension (principal); I11.0 Hypertensive heart disease with heart failure; I50.42 Chronic combined systolic (congestive) and diastolic (congestive) heart failure; I25.10 Atherosclerotic heart disease of native coronary artery without angina pectoris; I25.2 Old myocardial infarction; I42.9 Cardiomyopathy, unspecified; I48.2 Chronic atrial fibrillation; I70.0 Atherosclerosis of aorta; J44.9 Chronic obstructive pulmonary disease, unspecified; E11.9 Type 2 diabetes mellitus without complications; E78.5 Hyperlipidemia, unspecified; E66.01 Morbid (severe) obesity due to excess calories; F32.9 Major depressive disorder, single episode, unspecified; Z85.01 Personal history of malignant neoplasm of esophagus; Z85.46 Personal history of malignant neoplasm of prostate; Z87.891 Personal history of nicotine dependence; Z95.810 Presence of automatic (implantable) cardiac defibrillator; Z68.42 Body mass index [BMI] 45.0-49.9, adult; Z79.891 Long term (current) use of opiate analgesic; Z99.81 Dependence on supplemental oxygen
CPT/HCPCS: 96365; 96366; G0463; J1250; J1642

== ENCOUNTER → 2018-11-06 | Outpatient (CLI) | payer MEDICARE, OTHER ==
[2018-11-06] VITALS (7 sets, daily range): BP systolic 102–139; BP diastolic 42–69
--- NOTE | 2018-11-06 12:51 | NUR ---
IN TO CLINIC WITH IN ATTENDANCE FOR SCHEDULED INFUSION. USING WALKER AND OXYGEN WITHOUT DISTRESS. 89 % SPO2 ON ROOM AIR AND SPO2 UP TO 9^ PERCENT ON OXYGEN AT 2LPM. Initial PICC Line PICC line RIGHT ARM TRIPLE LUMEN assessed before access for ordered medications per MD. Port accessed per protocol flushed with 10 ml 0.9%LABS DRAWN AND SENT. See e-MAR for medications given during this visit. RESTED AND VISITED DURING ENTIRE INFUSION. VS WNL. TOLERATED WELL REMAINED ON OXYGEN DURING INFUSION AND DID NOT GET UP TO VOID. PICC INDIRECT FIRE INFANTRYMAN DONE PER PROTOCOL. Discharge Instructions See e-MAR for any mediations given with this visit. Patient education given on disease process. Patient verbalized understanding. Previous labs reviewed. Patient discharged in stable condition with after care instructions and follow up appointment FOR 11/08/18 MEDICATION ADMINISTRATION DOBUTAMINE GTT AT 5 MCG/KG/MIN START AT 0935/STOP AT 1245 (32.97 ML/HR) HEPARIN 150 UNITS IVP X 3 PORTS
[2018-11-06 12:56] LABS: Hematocrit 30.4 % (41.0-53.0); Hemoglobin 10.3 g/dL (13.5-17.5); Mean Corpuscular Hemoglobin 35.6 pg (28.0-32.0); Mean Corpuscular Volume 104.8 fL (80.0-100.0); Platelet Count (auto) 230 10^3/uL (140-450); Red Cell Distribution Width 19.2 % (11.8-14.3); White Blood Cell 10.1 10^3/uL (4.4-10.8)
[2018-11-06 12:58] LABS: Band Neutrophils % (manual) 0; Basophils % (manual) 0 (0.0-2.0); Blast Cells 0; Promyelocytes % 0; Reactive Lymphocytes 0
[2018-11-06 13:09] LABS: Magnesium 2.3 mg/dL (1.6-2.6); Potassium 4.5 mmol/L (3.5-5.1)
[2018-11-06 13:10] LABS: BUN/Creatinine Ratio 30.3; Calcium 8.8 mg/dL (8.5-10.1)
[2018-11-06 17:06] LABS: Eosinophils % (manual) 6 (0-7); Lymphocytes % (manual) 1 (10.0-50.0); Metamyelocytes % 1; Monocytes % (manual) 5 (0-12); Myelocytes % 3
== END | disposition home or self-care (01) ==
LOC: CHF HDHVI 09:10
PROVIDERS: ATTEND Internal Medicine Cardiovascular Disease
DX: I11.0 Hypertensive heart disease with heart failure (principal); I50.23 Acute on chronic systolic (congestive) heart failure; I50.32 Chronic diastolic (congestive) heart failure; D64.9 Anemia, unspecified; E83.40 Disorders of magnesium metabolism, unspecified; C15.9 Malignant neoplasm of esophagus, unspecified; J44.9 Chronic obstructive pulmonary disease, unspecified; I42.9 Cardiomyopathy, unspecified; I48.2 Chronic atrial fibrillation; I25.2 Old myocardial infarction; I27.21 Secondary pulmonary arterial hypertension; I25.10 Atherosclerotic heart disease of native coronary artery without angina pectoris; G47.30 Sleep apnea, unspecified; E78.5 Hyperlipidemia, unspecified; E66.01 Morbid (severe) obesity due to excess calories; Z95.810 Presence of automatic (implantable) cardiac defibrillator; Z68.41 Body mass index [BMI] 40.0-44.9, adult; Z79.899 Other long term (current) drug therapy; Z85.46 Personal history of malignant neoplasm of prostate; Z87.440 Personal history of urinary (tract) infections; Z79.891 Long term (current) use of opiate analgesic; Z87.891 Personal history of nicotine dependence
CPT/HCPCS: 36415; 80048; 83735; 83880; 85007; 85027; 96365; 96366; G0463; J1250; J1642

== ENCOUNTER → 2018-11-09 | Outpatient (CLI) | payer MEDICARE, OTHER ==
[2018-11-09] VITALS (7 sets, daily range): BP systolic 106–132; BP diastolic 51–72
[~2018-11-09] VITALS: Ht 30.5 cm; Wt 109.8 kg
== END | disposition home or self-care (01) ==
LOC: CHF HDHVI 08:47
PROVIDERS: ATTEND Internal Medicine Cardiovascular Disease
DX: I11.0 Hypertensive heart disease with heart failure (principal); I50.42 Chronic combined systolic (congestive) and diastolic (congestive) heart failure; R53.83 Other fatigue; I25.10 Atherosclerotic heart disease of native coronary artery without angina pectoris; I42.9 Cardiomyopathy, unspecified; I48.2 Chronic atrial fibrillation; I25.2 Old myocardial infarction; I70.0 Atherosclerosis of aorta; J44.9 Chronic obstructive pulmonary disease, unspecified; E78.5 Hyperlipidemia, unspecified; E66.01 Morbid (severe) obesity due to excess calories; E11.9 Type 2 diabetes mellitus without complications; F32.9 Major depressive disorder, single episode, unspecified; Z68.41 Body mass index [BMI] 40.0-44.9, adult; Z79.891 Long term (current) use of opiate analgesic; Z85.01 Personal history of malignant neoplasm of esophagus; Z85.46 Personal history of malignant neoplasm of prostate; Z87.891 Personal history of nicotine dependence; Z95.810 Presence of automatic (implantable) cardiac defibrillator; Z99.81 Dependence on supplemental oxygen
CPT/HCPCS: 96365; 96366; G0463; J1250; J1642

== ENCOUNTER → 2018-11-13 | Outpatient (CLI) | payer MEDICARE, OTHER ==
[2018-11-13 09:25] VITALS: BP 122/69
[2018-11-13 10:00] VITALS: BP 109/57
[2018-11-13 10:30] VITALS: BP 117/62
[2018-11-13 11:00] VITALS: BP 142/63
[2018-11-13 11:30] VITALS: BP 113/62
[2018-11-13 12:00] VITALS: BP 124/58
--- NOTE | 2018-11-13 12:00 | NUR ---
IN TO CLINIC FOR SCHEDULED INFUSION. IN ATTENDANCE. OXYGEN IN USE AT 2 LPM FROM HOME OXYGEN AND SWITCHED TO PORTABLE TANK. IN NO DISTRESS OR DISCOMFORT. AFFECT CHEERFUL AND PLEASANT. VS WNL. RIGHT ARM PICC LINE INTACT AND USED FOR INFUSION AND TOLERATED WELL. SITE BENIGN POST INFUSION. SEE FREQUENT VITAL SIGNS. Discharge Instructions See e-MAR for any mediations given with this visit. Patient education given on disease process. Patient verbalized understanding. Previous labs reviewed. Patient discharged in stable condition with after care instructions and follow up appointment FOR 11/15/18 MEDICATION ADMINISTRATION DOBUTAMINE GTT AT 5 MCG/KG/MIN START AT 0900/STOP AT 1200 HEPARIN 150 UNITS IVP TO EACH PICC LINE PORT X 3
== END | disposition home or self-care (01) ==
LOC: CHF HDHVI 13:14
PROVIDERS: ATTEND Internal Medicine Cardiovascular Disease
DX: I11.0 Hypertensive heart disease with heart failure (principal); I50.42 Chronic combined systolic (congestive) and diastolic (congestive) heart failure; C15.9 Malignant neoplasm of esophagus, unspecified; I27.21 Secondary pulmonary arterial hypertension; E11.9 Type 2 diabetes mellitus without complications; I25.10 Atherosclerotic heart disease of native coronary artery without angina pectoris; I25.2 Old myocardial infarction; I48.0 Paroxysmal atrial fibrillation; J44.9 Chronic obstructive pulmonary disease, unspecified; E66.01 Morbid (severe) obesity due to excess calories; E78.5 Hyperlipidemia, unspecified; G47.30 Sleep apnea, unspecified; F32.9 Major depressive disorder, single episode, unspecified; Z95.810 Presence of automatic (implantable) cardiac defibrillator; Z68.42 Body mass index [BMI] 45.0-49.9, adult; Z85.46 Personal history of malignant neoplasm of prostate; Z79.899 Other long term (current) drug therapy; Z87.891 Personal history of nicotine dependence; Z99.81 Dependence on supplemental oxygen; Z79.891 Long term (current) use of opiate analgesic; Z87.440 Personal history of urinary (tract) infections
CPT/HCPCS: 96365; 96366; G0463; J1250; J1642

== ENCOUNTER → 2018-11-15 | Outpatient (CLI) | payer MEDICARE, OTHER ==
--- NOTE | 2018-11-15 08:45 | NUR ---
CHF PT TO CHF CLINIC FOR DOBUTAMINE DRIP THERAPY. ALERT ORIENTED 0 DISTRESS. PLAN OF CARE DISCUSSED PT VERBALIZED UNDERSTANDING
--- NOTE | 2018-11-15 08:45 | NUR ---
CHF DOBUTAMINE DRIP STARTED BY ZAIRA RICHARDSON PER ORDER
--- NOTE | 2018-11-15 12:00 | NUR ---
Discharge Instructions See e-MAR for any mediations given with this visit. Patient education given on disease process. Patient verbalized understanding. Previous labs reviewed. Patient discharged in stable condition with after care instructions and follow up appointment. MEDICATIONS DOBUTAMINE DRIP 5MCG.KG/MIN START TIME 0820 STOP TIME 1148 HEPARIN 150 UNITS IV X 3 1156
== END | disposition home or self-care (01) ==
LOC: CHF HDHVI 08:44
PROVIDERS: ATTEND Internal Medicine Cardiovascular Disease
DX: I11.0 Hypertensive heart disease with heart failure (principal); I50.42 Chronic combined systolic (congestive) and diastolic (congestive) heart failure; I25.10 Atherosclerotic heart disease of native coronary artery without angina pectoris; I42.9 Cardiomyopathy, unspecified; I48.0 Paroxysmal atrial fibrillation; J44.9 Chronic obstructive pulmonary disease, unspecified; E78.5 Hyperlipidemia, unspecified; F32.9 Major depressive disorder, single episode, unspecified; E66.01 Morbid (severe) obesity due to excess calories; E11.9 Type 2 diabetes mellitus without complications; I70.0 Atherosclerosis of aorta; Z79.891 Long term (current) use of opiate analgesic; Z85.01 Personal history of malignant neoplasm of esophagus; Z87.891 Personal history of nicotine dependence; Z68.41 Body mass index [BMI] 40.0-44.9, adult; Z95.810 Presence of automatic (implantable) cardiac defibrillator; Z99.81 Dependence on supplemental oxygen; Z85.46 Personal history of malignant neoplasm of prostate
CPT/HCPCS: 96365; 96366; G0463; J1250; J1642

== ENCOUNTER 2018-11-23 11:52 | Emergency (ER) | payer MEDICARE, OTHER ==
[~2018-11-23] VITALS: Ht 165.1 cm; Wt 108.4 kg
[2018-11-23 13:29] LABS: Urine Bacteria NONE SEEN /hpf (None Seen); Urine Blood Negative /uL (Negative); Urine Specific Gravity 1.013 (1.001-1.035); Urine WBC <1 /hpf (0 - 3)
[2018-11-23 15:01] LABS: Albumin 3.4 g/dL (3.4-5.0); Calcium 8.7 mg/dL (8.5-10.1); Potassium 4.2 mmol/L (3.5-5.1)
[2018-11-23 15:04] LABS: BUN/Creatinine Ratio 40.4; Bilirubin, Total 0.6 mg/dL (0.2-1.0); Total Protein 8.8 g/dL (6.4-8.2)
[2018-11-23 15:08] LABS: Mean Corpuscular Volume 104.8 fL (80.0-100.0); White Blood Cell 13.5 10^3/uL (4.4-10.8)
[2018-11-23 15:09] LABS: Hematocrit 28.2 % (41.0-53.0); Hemoglobin 9.5 g/dL (13.5-17.5); Mean Corpuscular Hemoglobin 35.2 pg (28.0-32.0); Mean Corpuscular Hgb Conc. 33.6 g/dL (32.0-36.0); Platelet Count (auto) 273 10^3/uL (140-450); Red Blood Cells 2.69 10^6/uL (4.5-5.90); Red Cell Distribution Width 17.1 % (11.8-14.3)
[2018-11-23 15:21] LABS: Basophils % (manual) 0 (0.0-2.0); Blast Cells 0; Metamyelocytes % 0; Promyelocytes % 0; Reactive Lymphocytes 0
[2018-11-23] MEDS ORDERED: LIDOCAINE W/ EPINEPHRINE 1% 20ML VIAL ONE (17:18)
[2018-11-23 17:45] LABS: Band Neutrophils % (manual) 1; Eosinophils % (manual) 4 (0-7); Lymphocytes % (manual) 4 (10.0-50.0); Monocytes % (manual) 5 (0-12)
[2018-11-23 17:46] LABS: Myelocytes % 3
[2018-11-23] MEDS ORDERED: cefTRIAXone SOD 1,000 MG VL IM ONE (18:00)
[2018-11-23 18:25] VITALS: BP 103/61
== END 2018-11-23 18:25 | disposition home or self-care (01) ==
LOC: ER 11:57
DX: L05.01 Pilonidal cyst with abscess (principal); J44.9 Chronic obstructive pulmonary disease, unspecified; I10 Essential (primary) hypertension; I25.2 Old myocardial infarction; I48.91 Unspecified atrial fibrillation
CPT/HCPCS: 10080; 36415; 71045; 72192; 80053; 81001; 85007; 85027; 93005; 96372; 99284; J0696

== ENCOUNTER → 2018-11-23 | Outpatient (CLI) | payer MEDICARE, OTHER ==
[~2018-11-23] MED LIST changes: -DOBUTamine 1000MCG/ML 250 ML IV ONE
--- NOTE | 2018-11-23 09:30 | NUR ---
PT IN FOR INITIATION OF HOME IV MEDICATION, DOBUTAMINE. BROUGHT SUPPLIES.
[2018-11-23 09:46] VITALS: BP 109/58
--- NOTE | 2018-11-23 10:00 | NUR ---
PT AND REPORT AN ABCESS ON BUTTOCK WHICH HAS BEEN PROFUSELY DRAINING BLOOD, BOTH INTO UNDERWEAR PAD AND WHEN HE USES RESTROOM INTO TOILET. LABS DRAWN AND SENT STAT FORM RIGHT ARM PICC LINE.
--- NOTE | 2018-11-23 11:00 | NUR ---
DR WU AT BEDSIDE. ATTEMPT TO FULLY VISUALIZE LEFT GLUTEAL FOLD WOUND. WOUND DEEPER THAN ORIGINALLY VISUALIZED. PT HAVING DIFFICULTY IN ATTAINING POSITION FOR VISUALIZATION AND PT REPORTS EXTREME PAIN WITH POSITION CHANGES. PT WEARING A GAUZE PAD IN HIS UNDERWEAR THAT IS SATURATED WITH DARK BLOOD, APPROXIMATELY 1/[address] WU REFERRED PT TO EMERGENCY ROOM FOR I/D AND PACKING. PT TOOK HOME IV SUPPLIES AND WILL FOLLOW UP LATER.
[2018-11-23 11:18] LABS: Hematocrit 30.5 % (41.0-53.0); Hemoglobin 10.2 g/dL (13.5-17.5); Mean Corpuscular Hemoglobin 35.4 pg (28.0-32.0); Mean Corpuscular Hgb Conc. 33.5 g/dL (32.0-36.0); Mean Corpuscular Volume 105.7 fL (80.0-100.0); Platelet Count (auto) 270 10^3/uL (140-450); Red Blood Cells 2.88 10^6/uL (4.5-5.90); Red Cell Distribution Width 17.2 % (11.8-14.3); White Blood Cell 12.1 10^3/uL (4.4-10.8)
[2018-11-23 11:23] LABS: BUN/Creatinine Ratio 38.6; Calcium 8.6 mg/dL (8.5-10.1); Potassium 3.9 mmol/L (3.5-5.1)
--- NOTE | 2018-11-23 11:38 | NUR ---
Discharge Instructions See e-MAR for any mediations given with this visit. Patient education given on disease process. Patient verbalized understanding. Patient discharged in stable condition with FAMILY IN ATTENDANCE FOR FOLLOWUP IN EMERGENCY DEPARTMENT NOW.
[2018-11-23 11:42] LABS: INR 1.19 (0.9-1.15); Partial Thromboplastin Time 40.1 sec (23.78-33.04); Prothrombin Time 12.6 sec (9.27-12.13)
[2018-11-23 11:47] LABS: Basophils % (manual) 0 (0.0-2.0); Blast Cells 0; Metamyelocytes % 0; Myelocytes % 0; Promyelocytes % 0; Reactive Lymphocytes 0
[2018-11-23 14:18] LABS: Band Neutrophils % (manual) 2; Eosinophils % (manual) 3 (0-7); Lymphocytes % (manual) 7 (10.0-50.0); Monocytes % (manual) 8 (0-12)
== END | disposition home or self-care (01) ==
LOC: CHF HDHVI 09:50
PROVIDERS: ATTEND Internal Medicine Cardiovascular Disease
DX: I11.0 Hypertensive heart disease with heart failure (principal); I50.23 Acute on chronic systolic (congestive) heart failure; I50.32 Chronic diastolic (congestive) heart failure; D64.9 Anemia, unspecified; R79.1 Abnormal coagulation profile; L05.01 Pilonidal cyst with abscess; I27.21 Secondary pulmonary arterial hypertension; I25.10 Atherosclerotic heart disease of native coronary artery without angina pectoris; I48.0 Paroxysmal atrial fibrillation; J44.9 Chronic obstructive pulmonary disease, unspecified; I25.2 Old myocardial infarction; I42.9 Cardiomyopathy, unspecified; E78.5 Hyperlipidemia, unspecified; E11.9 Type 2 diabetes mellitus without complications; F32.9 Major depressive disorder, single episode, unspecified; E66.01 Morbid (severe) obesity due to excess calories; G47.30 Sleep apnea, unspecified; Z99.81 Dependence on supplemental oxygen; Z85.01 Personal history of malignant neoplasm of esophagus; Z68.42 Body mass index [BMI] 45.0-49.9, adult; Z79.899 Other long term (current) drug therapy; Z85.46 Personal history of malignant neoplasm of prostate; Z87.440 Personal history of urinary (tract) infections; Z87.891 Personal history of nicotine dependence; Z95.810 Presence of automatic (implantable) cardiac defibrillator; Z79.891 Long term (current) use of opiate analgesic
CPT/HCPCS: 36415; 80048; 83880; 85007; 85027; 85610; 85730; G0463; J1642

== ENCOUNTER → 2018-11-27 | Outpatient (CLI) | payer MEDICARE, OTHER ==
[2018-11-27 11:21] VITALS: BP 110/59
--- NOTE | 2018-11-27 12:20 | NUR ---
CHF IN TO CLINIC WITH IN ATTENDANCE TO START HOME DOBUTAMINE GTT. PT TO BE ON 12 HOURS AND OFF 12 HOURS. ALL SUPPLIED BROUGHT IN BY PATIENT. RIGHT ARM PICC LINE USED FOR IV DOBUTAMINE INFUSION. INSTRUCTED ON MEDICATION, PUMP USE, FLUSHING, AND TROUBLESHOOTING PUMP. GIVEN PHARMACY NUMBER [facility] FOR CHF FOR AND DIFFICULTY. USED WRITTEN, DEMONSTRATION AND VERBAL TEACHING METHODS. ADDITIONAL QUESTIONS DENIED. ONE ON ONE INSTRUCTION PROVIDED X 50 MINUTES BY BONITA RICHARDSON. Discharge Instructions See e-MAR for any mediations given with this visit. Patient education given on disease process. Patient verbalized understanding. Previous labs reviewed. Patient discharged in stable condition with after care instructions and follow up appointment FOR NEXT Monday12/04/18
== END | disposition home or self-care (01) ==
LOC: CHF HDHVI 11:41
PROVIDERS: ATTEND Internal Medicine Cardiovascular Disease
DX: I11.0 Hypertensive heart disease with heart failure (principal); I50.9 Heart failure, unspecified; I27.21 Secondary pulmonary arterial hypertension
CPT/HCPCS: G0463

== ENCOUNTER → 2018-12-04 | Outpatient (CLI) | payer MEDICARE, OTHER ==
[2018-12-04 10:35] VITALS: BP 122/52
--- NOTE | 2018-12-04 10:35 | NUR ---
pt. to chf clinic for eval. and tx. Pt. states he is feeling better each week. labs ordered for today. at bedside for support.
--- NOTE | 2018-12-04 11:10 | NUR ---
Discharge Instructions See e-MAR for any mediations given with this visit. Patient education given on disease process. Patient verbalized understanding. Previous labs reviewed. Patient discharged in stable condition with after care instructions and follow up appointment.
[2018-12-04 16:12] LABS: Mean Corpuscular Hemoglobin 35.5 pg (28.0-32.0); Mean Corpuscular Hgb Conc. 33.4 g/dL (32.0-36.0); Mean Corpuscular Volume 106.1 fL (80.0-100.0); Platelet Count (auto) 272 10^3/uL (140-450); Red Blood Cells 2.83 10^6/uL (4.5-5.90); Red Cell Distribution Width 16.7 % (11.8-14.3); White Blood Cell 12.7 10^3/uL (4.4-10.8)
[2018-12-04 16:16] LABS: Basophils % (manual) 0 (0.0-2.0); Blast Cells 0; Myelocytes % 0; Promyelocytes % 0; Reactive Lymphocytes 0
[2018-12-04 16:22] LABS: Calcium 8.9 mg/dL (8.5-10.1); Potassium 4.5 mmol/L (3.5-5.1)
[2018-12-04 16:25] LABS: Albumin 3.7 g/dL (3.4-5.0); BUN/Creatinine Ratio 27.5; Magnesium 2.2 mg/dL (1.6-2.6)
[2018-12-04 16:28] LABS: Bilirubin, Total 0.6 mg/dL (0.2-1.0); Total Protein 9.1 g/dL (6.4-8.2)
[2018-12-04 16:55] LABS: Band Neutrophils % (manual) 10; Eosinophils % (manual) 2 (0-7); Lymphocytes % (manual) 5 (10.0-50.0); Metamyelocytes % 1; Monocytes % (manual) 10 (0-12)
== END | disposition home or self-care (01) ==
LOC: CHF HDHVI 11:15
PROVIDERS: ATTEND Internal Medicine Cardiovascular Disease
DX: I11.0 Hypertensive heart disease with heart failure (principal); I50.23 Acute on chronic systolic (congestive) heart failure; I50.32 Chronic diastolic (congestive) heart failure; E83.40 Disorders of magnesium metabolism, unspecified; D64.9 Anemia, unspecified; I25.2 Old myocardial infarction; I25.10 Atherosclerotic heart disease of native coronary artery without angina pectoris; I48.0 Paroxysmal atrial fibrillation; I27.21 Secondary pulmonary arterial hypertension; E78.5 Hyperlipidemia, unspecified; J44.9 Chronic obstructive pulmonary disease, unspecified; F32.9 Major depressive disorder, single episode, unspecified; E66.01 Morbid (severe) obesity due to excess calories; Z85.46 Personal history of malignant neoplasm of prostate; Z87.891 Personal history of nicotine dependence; Z87.440 Personal history of urinary (tract) infections; Z85.01 Personal history of malignant neoplasm of esophagus; Z68.42 Body mass index [BMI] 45.0-49.9, adult; Z95.810 Presence of automatic (implantable) cardiac defibrillator; Z99.81 Dependence on supplemental oxygen; Z79.891 Long term (current) use of opiate analgesic
CPT/HCPCS: 36415; 80053; 83735; 83880; 85007; 85027; G0463; J1642; 96374

== ENCOUNTER → 2018-12-11 | Outpatient (CLI) | payer MEDICARE, OTHER ==
[~2018-12-11] MED LIST changes: +METO25TA5 PO; +SODIUM CHLORIDE 0.9% 250 ML IV SCH
--- NOTE | 2018-12-11 11:46 | NUR ---
REPEAT CARDIODYNAMICS WITH NO CHANGE. REVIEWED WITH CLINIC PROVIDER. ADDITIONAL SALINE BOLUS IN PROCESS. WAITING ON STAT LAB RESULTS.
[2018-12-11 12:10] LABS: Red Cell Distribution Width 16.3 % (11.8-14.3)
[2018-12-11 12:12] LABS: Mean Corpuscular Hemoglobin 36.5 pg (28.0-32.0); Mean Corpuscular Hgb Conc. 34.7 g/dL (32.0-36.0); Mean Corpuscular Volume 105.4 fL (80.0-100.0); Platelet Count (auto) 232 10^3/uL (140-450); Red Blood Cells 2.75 10^6/uL (4.5-5.90); White Blood Cell 10.9 10^3/uL (4.4-10.8)
--- NOTE | 2018-12-11 12:21 | NUR ---
CALLED LAB. ANOTHER 15 MINUTES FOR RESULTS.
[2018-12-11 12:22] LABS: Basophils % (manual) 0 (0.0-2.0); Blast Cells 0; Metamyelocytes % 0; Promyelocytes % 0
[2018-12-11 12:28] LABS: Albumin 3.9 g/dL (3.4-5.0); Calcium 8.9 mg/dL (8.5-10.1); Potassium 4.5 mmol/L (3.5-5.1)
[2018-12-11 12:31] LABS: BUN/Creatinine Ratio 30.1; Bilirubin, Total 0.5 mg/dL (0.2-1.0); Total Protein 8.9 g/dL (6.4-8.2)
--- NOTE | 2018-12-11 13:00 | NUR ---
THIRD CARDIODYNAMICS DONE AND COMPLETED POST IV FLUIDS X 500 ML. NO CHANGE IN CARDIODYNAMICS OR IN PT STATUS. VS WNL. NO DISTRESS OR DISCOMFORT. PLAN TO ADJUST MEDICATION OVER NEXT WEEK AND REEVALUATE NEXT WEEK. PICC SITE FLUSHED AND BENIGN. MEDICATION ADMINISTRATION 0.9 NS 250 ML IVPB OVER 1 HOUR, X 2 BAGS TOTAL HOLD ALDACTONE X 1 WEEK REDUCE POTASSIUM RICH FOODS FOLLOWUP IN 1 WEEK FOR REEVALUATION
[2018-12-11 14:04] LABS: Band Neutrophils % (manual) 5; Eosinophils % (manual) 4 (0-7); Lymphocytes % (manual) 3 (10.0-50.0); Monocytes % (manual) 4 (0-12); Myelocytes % 2; Reactive Lymphocytes 2
--- NOTE | 2019-01-22 14:30 | NUR ---
LATE ENTRY FOR 12/11/18 0.9 NS [id number] (TOTAL 500 ML ADMINISTERED)
== END | disposition home or self-care (01) ==
LOC: CHF HDHVI 10:13
PROVIDERS: ATTEND Internal Medicine Cardiovascular Disease
DX: E86.0 Dehydration (principal); I11.0 Hypertensive heart disease with heart failure; I50.32 Chronic diastolic (congestive) heart failure; I50.23 Acute on chronic systolic (congestive) heart failure; D64.9 Anemia, unspecified; E83.40 Disorders of magnesium metabolism, unspecified; J44.9 Chronic obstructive pulmonary disease, unspecified; E78.5 Hyperlipidemia, unspecified; F32.9 Major depressive disorder, single episode, unspecified; E66.01 Morbid (severe) obesity due to excess calories; I48.2 Chronic atrial fibrillation; I25.2 Old myocardial infarction; I27.21 Secondary pulmonary arterial hypertension; M10.9 Gout, unspecified; E66.9 Obesity, unspecified; G47.30 Sleep apnea, unspecified; Z87.440 Personal history of urinary (tract) infections; Z99.81 Dependence on supplemental oxygen; Z68.42 Body mass index [BMI] 45.0-49.9, adult; Z79.899 Other long term (current) drug therapy; Z85.01 Personal history of malignant neoplasm of esophagus; Z85.46 Personal history of malignant neoplasm of prostate; Z87.891 Personal history of nicotine dependence; Z95.810 Presence of automatic (implantable) cardiac defibrillator; Z79.891 Long term (current) use of opiate analgesic
CPT/HCPCS: 36415; 80053; 83735; 83880; 85007; 85027; 93701; 96360; 96361; G0463; J7050; 96366

== ENCOUNTER → 2018-12-18 | Outpatient (CLI) | payer MEDICARE, OTHER ==
[~2018-12-18] MED LIST changes: -METO25TA5 PO; -SODIUM CHLORIDE 0.9% 250 ML IV SCH
[2018-12-18 09:52] VITALS: BP 107/51
--- NOTE | 2018-12-18 09:52 | NUR ---
CHF CLINIC Discharge Instructions See e-MAR for any mediations given with this visit. Patient education given on disease process. Patient verbalized understanding. Previous labs reviewed. Patient discharged in stable condition with after care instructions and follow up appointment. NOTE LAB DRAWN FROM PICC LINE BY ZAIRA RICHARDSON HEPARIN ADMIN BY ZAIRA RICHARDSON CAPS AND CLAVES CHANGED BY ZAIRA RICHARDSON
[2018-12-18 10:39] LABS: Basophils # (auto) 0.1 uL; Eosinophils # (auto) 0.3 uL; Hemoglobin 9.7 g/dL (13.5-17.5); Neutrophils # (auto) 9.5 uL; Red Cell Distribution Width 16.7 % (11.8-14.3)
[2018-12-18 10:40] LABS: Basophils % (auto) 1.1 % (0.0-2.0); Eosinophils % (auto) 2.7 % (0.0-7.0); Hematocrit 28.6 % (41.0-53.0); Lymphocytes # (auto) 0.3 uL; Lymphocytes % (auto) 3.1 % (10.0-50.0); Mean Corpuscular Hemoglobin 35.9 pg (28.0-32.0); Mean Corpuscular Hgb Conc. 33.8 g/dL (32.0-36.0); Mean Corpuscular Volume 106.2 fL (80.0-100.0); Monocytes # (auto) 0.6 uL; Monocytes % (auto) 5.7 % (0.0-12.0); Neutrophils % (auto) 87.4 % (37.0-80.0); Platelet Count (auto) 222 10^3/uL (140-450); Red Blood Cells 2.69 10^6/uL (4.5-5.90); White Blood Cell 10.8 10^3/uL (4.4-10.8)
[2018-12-18 10:52] LABS: BUN/Creatinine Ratio 25.1; Calcium 8.7 mg/dL (8.5-10.1); Magnesium 2.1 mg/dL (1.6-2.6); Potassium 4.3 mmol/L (3.5-5.1)
--- NOTE | 2018-12-19 10:59 | NUR ---
CHF CLINIC PROVIDER CONSULTED REGARDING LABS AND ORDERS. SPOKE WITH PATIENT AND PTS REGARDING LAB RESULTS. RESUME ALDACTONE DAILY AND REDUCE DEMEDEX TO 1/2 DOSE (10 MG) ON . RECHECK LABS NEXT MONDAY. REPEAT BACK INSTRUCTIONS OBTAINED.
== END | disposition home or self-care (01) ==
LOC: CHF HDHVI 09:12
PROVIDERS: ATTEND Internal Medicine Cardiovascular Disease
DX: I11.0 Hypertensive heart disease with heart failure (principal); I50.23 Acute on chronic systolic (congestive) heart failure; I50.32 Chronic diastolic (congestive) heart failure; D64.9 Anemia, unspecified; E11.9 Type 2 diabetes mellitus without complications; E83.40 Disorders of magnesium metabolism, unspecified; I25.10 Atherosclerotic heart disease of native coronary artery without angina pectoris; J44.9 Chronic obstructive pulmonary disease, unspecified; E78.5 Hyperlipidemia, unspecified; F32.9 Major depressive disorder, single episode, unspecified; E66.01 Morbid (severe) obesity due to excess calories; I25.2 Old myocardial infarction; I48.2 Chronic atrial fibrillation; Z99.81 Dependence on supplemental oxygen; Z79.891 Long term (current) use of opiate analgesic; Z87.891 Personal history of nicotine dependence; Z85.46 Personal history of malignant neoplasm of prostate; Z85.01 Personal history of malignant neoplasm of esophagus; Z87.440 Personal history of urinary (tract) infections; Z95.810 Presence of automatic (implantable) cardiac defibrillator; Z79.899 Other long term (current) drug therapy
CPT/HCPCS: 36415; 80048; 82306; 83036; 83735; 83880; 85025; G0463; J1642

== ENCOUNTER → 2018-12-25 | Outpatient (CLI) | payer MEDICARE, OTHER ==
[~2018-12-25] MED LIST changes: +METO25TA5 PO
[2018-12-25 09:47] VITALS: BP 97/48
--- NOTE | 2018-12-25 09:47 | NUR ---
CHF CLINIC Discharge Instructions See e-MAR for any mediations given with this visit. Patient education given on disease process. Patient verbalized understanding. Previous labs reviewed. Patient discharged in stable condition with after care instructions and follow up appointment. Note Heparin admin by Kathie RICHARDSON. Patient will stop Aldactone and take regular dose of Demadex, pt will return on Monday if weight has not gone down/
[2018-12-25 12:06] LABS: Basophils # (auto) 0.1 uL; Eosinophils # (auto) 0.3 uL; Lymphocytes # (auto) 0.3 uL; Lymphocytes % (auto) 3.2 % (10.0-50.0); Monocytes # (auto) 0.6 uL; Monocytes % (auto) 6.2 % (0.0-12.0); Nucleated Red Blood Cells % 0.1 %
[2018-12-25 12:09] LABS: Hematocrit 28.8 % (41.0-53.0); Hemoglobin 9.5 g/dL (13.5-17.5); Mean Corpuscular Hemoglobin 35.6 pg (28.0-32.0); Mean Corpuscular Volume 107.9 fL (80.0-100.0); Neutrophils # (auto) 8.7 uL; Neutrophils % (auto) 86.6 % (37.0-80.0); Platelet Count (auto) 237 10^3/uL (140-450); Red Blood Cells 2.67 10^6/uL (4.5-5.90); Red Cell Distribution Width 16.6 % (11.8-14.3)
[2018-12-25 12:10] LABS: BUN/Creatinine Ratio 23.4; Calcium 8.6 mg/dL (8.5-10.1); Potassium 4.5 mmol/L (3.5-5.1)
== END | disposition home or self-care (01) ==
LOC: CHF HDHVI 09:28
PROVIDERS: ATTEND Internal Medicine Cardiovascular Disease
DX: Z45.2 Encounter for adjustment and management of vascular access device (principal); I11.0 Hypertensive heart disease with heart failure; I50.42 Chronic combined systolic (congestive) and diastolic (congestive) heart failure; D64.9 Anemia, unspecified; J44.9 Chronic obstructive pulmonary disease, unspecified; I25.10 Atherosclerotic heart disease of native coronary artery without angina pectoris; I48.2 Chronic atrial fibrillation; I25.2 Old myocardial infarction; E66.01 Morbid (severe) obesity due to excess calories; G47.30 Sleep apnea, unspecified; E78.5 Hyperlipidemia, unspecified; I27.21 Secondary pulmonary arterial hypertension; Z79.899 Other long term (current) drug therapy; Z85.01 Personal history of malignant neoplasm of esophagus; Z85.46 Personal history of malignant neoplasm of prostate; Z95.810 Presence of automatic (implantable) cardiac defibrillator; Z87.440 Personal history of urinary (tract) infections; Z99.81 Dependence on supplemental oxygen; Z68.42 Body mass index [BMI] 45.0-49.9, adult; Z79.891 Long term (current) use of opiate analgesic; Z87.891 Personal history of nicotine dependence
CPT/HCPCS: 36415; 80048; 83880; 85025; G0463; J1642

== ENCOUNTER → 2018-12-31 | Outpatient (CLI) | payer MEDICARE, OTHER ==
[2018-12-31 11:15] VITALS: BP 115/68
--- NOTE | 2018-12-31 11:15 | NUR ---
CHF PT ARRIVED AT THE CLINIC FOR PREOP LABS, CXR , EKG HEART CATH 01/03/19 VITAL SIGNS OBTAINED 0 DISTRESS
[2018-12-31 12:00] VITALS: BP 120/68
--- NOTE | 2018-12-31 12:00 | NUR ---
Discharge Instructions See e-MAR for any mediations given with this visit. Patient education given on disease process. Patient verbalized understanding. Previous labs reviewed. Patient discharged in stable condition with after care instructions and follow up appointment. HEPARIN 150 UNITS IV X 2 TO THE SKYE CATH
[2018-12-31 16:02] LABS: Calcium 8.6 mg/dL (8.5-10.1); Potassium 4.4 mmol/L (3.5-5.1)
[2018-12-31 16:14] LABS: INR 1.28 (0.9-1.15); Partial Thromboplastin Time 36.3 sec (23.78-33.04); Prothrombin Time 13.5 sec (9.27-12.13)
[2018-12-31 16:37] LABS: Basophils # (auto) 0.1 uL; Eosinophils # (auto) 0.2 uL; Lymphocytes # (auto) 0.4 uL; Monocytes # (auto) 0.8 uL; Neutrophils # (auto) 10.3 uL; White Blood Cell 11.8 10^3/uL (4.4-10.8)
[2018-12-31 16:40] LABS: Eosinophils % (auto) 1.9 % (0.0-7.0); Hematocrit 29.1 % (41.0-53.0); Hemoglobin 9.6 g/dL (13.5-17.5); Lymphocytes % (auto) 3.4 % (10.0-50.0); Mean Corpuscular Hemoglobin 35.1 pg (28.0-32.0); Mean Corpuscular Hgb Conc. 33.1 g/dL (32.0-36.0); Monocytes % (auto) 6.5 % (0.0-12.0); Neutrophils % (auto) 87.2 % (37.0-80.0); Platelet Count (auto) 252 10^3/uL (140-450); Red Blood Cells 2.74 10^6/uL (4.5-5.90)
== END | disposition home or self-care (01) ==
LOC: Rad HDHVI 10:10
PROVIDERS: ATTEND Internal Medicine Cardiovascular Disease
DX: I42.9 Cardiomyopathy, unspecified (principal); I27.21 Secondary pulmonary arterial hypertension; I11.0 Hypertensive heart disease with heart failure; I50.23 Acute on chronic systolic (congestive) heart failure; I50.32 Chronic diastolic (congestive) heart failure; E83.40 Disorders of magnesium metabolism, unspecified; D64.9 Anemia, unspecified; R79.1 Abnormal coagulation profile; I25.10 Atherosclerotic heart disease of native coronary artery without angina pectoris; I48.2 Chronic atrial fibrillation; J44.9 Chronic obstructive pulmonary disease, unspecified; E78.5 Hyperlipidemia, unspecified; E66.01 Morbid (severe) obesity due to excess calories; I25.2 Old myocardial infarction; E11.9 Type 2 diabetes mellitus without complications; F32.9 Major depressive disorder, single episode, unspecified; Z99.81 Dependence on supplemental oxygen; Z79.899 Other long term (current) drug therapy; Z87.891 Personal history of nicotine dependence; Z85.46 Personal history of malignant neoplasm of prostate; Z95.810 Presence of automatic (implantable) cardiac defibrillator
CPT/HCPCS: 36415; 71046; 80048; 83735; 83880; 85025; 85610; 85730; 93005; G0463; J1642; 96523

== ENCOUNTER 2019-01-03 06:51 | Day surgery (SDC) | payer MEDICARE, OTHER ==
[~2019-01-03] VITALS: Ht 165.1 cm; Wt 108.9 kg
[~2019-01-03 06:51] MED LIST changes: -METO-158 PO
[2019-01-03] MEDS ORDERED: MIDAZOLAM HCL 1MG/1ML-2 ML VIAL ONE (08:32)
[2019-01-03] MEDS ORDERED: fentaNYL CITRATE 100 MCG/2 ML VL ONE (08:32)
[2019-01-03] MEDS ORDERED: LIDOCAINE 2%HCL (LOCAL ANESTH.) INJ 20ML MDV ONE (08:34)
== END 2019-01-03 10:45 | disposition home or self-care (01) ==
LOC: CATH 06:51
PROVIDERS: ATTEND Internal Medicine Cardiovascular Disease
DX: I25.10 Atherosclerotic heart disease of native coronary artery without angina pectoris (principal); I27.0 Primary pulmonary hypertension; I50.20 Unspecified systolic (congestive) heart failure; I42.0 Dilated cardiomyopathy; E11.40 Type 2 diabetes mellitus with diabetic neuropathy, unspecified; E11.21 Type 2 diabetes mellitus with diabetic nephropathy; G47.30 Sleep apnea, unspecified; E66.9 Obesity, unspecified; E78.5 Hyperlipidemia, unspecified; J44.9 Chronic obstructive pulmonary disease, unspecified; I48.91 Unspecified atrial fibrillation; F17.210 Nicotine dependence, cigarettes, uncomplicated; Z88.8 Allergy status to other drugs, medicaments and biological substances
CPT/HCPCS: 93456; A6257; C1769; C1894; J1644; J2250; J3010; J7030; 99152

== ENCOUNTER → 2019-01-07 | Outpatient (CLI) | payer MEDICARE, OTHER ==
[2019-01-07 14:00] VITALS: BP 120/56
--- NOTE | 2019-01-07 14:15 | NUR ---
IN TO CLINIC FOR LAB DRAW . ALL PORTS ACCESSED. ONLY ONE PORT KATIE BLOOD, BLUE PORTS. ALL PORTS FLUSHED EASILY AND HEPARININZED POST ACCESS. FAMILY IN ATTENDANCE. NO DISTRESS NOTED. OXYGEN AT 2 LPM FROM HOME. VS WNL . TOLERATED WELL. . Discharge Instructions See e-MAR for any mediations given with this visit. Patient education given on disease process. Patient verbalized understanding. Previous labs reviewed. Patient discharged in stable condition with after care instructions and follow up appointment FOR 01/15/19
[2019-01-07 16:14] LABS: Potassium 4.2 mmol/L (3.5-5.1)
== END | disposition home or self-care (01) ==
LOC: CHF HDHVI 14:00
PROVIDERS: ATTEND Internal Medicine Cardiovascular Disease
DX: I11.0 Hypertensive heart disease with heart failure (principal); I50.9 Heart failure, unspecified; E87.6 Hypokalemia; R94.4 Abnormal results of kidney function studies; E78.5 Hyperlipidemia, unspecified; F17.210 Nicotine dependence, cigarettes, uncomplicated; E66.01 Morbid (severe) obesity due to excess calories; E11.21 Type 2 diabetes mellitus with diabetic nephropathy; E11.40 Type 2 diabetes mellitus with diabetic neuropathy, unspecified; I50.42 Chronic combined systolic (congestive) and diastolic (congestive) heart failure; I48.2 Chronic atrial fibrillation; F32.9 Major depressive disorder, single episode, unspecified; I25.2 Old myocardial infarction; Z68.42 Body mass index [BMI] 45.0-49.9, adult; Z85.46 Personal history of malignant neoplasm of prostate; Z95.810 Presence of automatic (implantable) cardiac defibrillator; Z79.891 Long term (current) use of opiate analgesic; Z85.01 Personal history of malignant neoplasm of esophagus; Z99.81 Dependence on supplemental oxygen
CPT/HCPCS: 36415; 82565; 84132; 84520; G0463; J1642

== ENCOUNTER → 2019-01-15 | Outpatient (CLI) | payer MEDICARE, OTHER ==
[~2019-01-15] MED LIST changes: +CYANOCOBALAMIN (B-12) 1000 MCG/1 ML VIAL IM ONE; +CYANOCOBALAMIN (B-12) 1000 MCG/1 ML VIAL ONE
[2019-01-15 09:57] VITALS: BP 117/56
--- NOTE | 2019-01-15 09:57 | NUR ---
CHF PT ARRIVED AT THE CHF CLINIC FOLLOW UP, A/O X 3 . O DISTRESS, V/S OBTAINED.
--- NOTE | 2019-01-15 10:50 | NUR ---
EDUCATION PATIENT PALN OF CARE DISCUSSED MD AT [facility] DISCUSSED ULORIC PO FOR PATIENT. PT VERBALIZED UNDERSTANDING
[2019-01-15 11:10] VITALS: BP 112/54
--- NOTE | 2019-01-15 11:10 | NUR ---
Discharge Instructions See e-MAR for any mediations given with this visit. Patient education given on disease process. Patient verbalized understanding. Previous labs reviewed. Patient discharged in stable condition with after care instructions and follow up appointment. MEDICATIONS 1050 VITAMIN 1000MCG IM X 1 RIGHT DELTOID 1100 HEPARIN 150 UNITS IVP X 1 Addendum: 01/22/19 at 1559 by TEA ROSSI RN RN GA LATE ENTRY FOR 01/15/19 HEPARIN 150 UNITS GIVEN VERIFIED WITH ZAIRA RICHARDSON
[2019-01-15 16:18] LABS: White Blood Cell 12.1 10^3/uL (4.4-10.8)
[2019-01-15 16:22] LABS: Hematocrit 30.4 % (41.0-53.0); Hemoglobin 10.3 g/dL (13.5-17.5); Mean Corpuscular Hemoglobin 35.3 pg (28.0-32.0); Mean Corpuscular Hgb Conc. 33.8 g/dL (32.0-36.0); Mean Corpuscular Volume 104.3 fL (80.0-100.0); Platelet Count (auto) 258 10^3/uL (140-450); Red Blood Cells 2.92 10^6/uL (4.5-5.90); Red Cell Distribution Width 16.1 % (11.8-14.3)
[2019-01-15 16:27] LABS: Potassium 4.4 mmol/L (3.5-5.1)
[2019-01-15 16:28] LABS: Basophils % (manual) 0 (0.0-2.0); Blast Cells 0; Metamyelocytes % 0; Promyelocytes % 0; Reactive Lymphocytes 0
[2019-01-15 16:30] LABS: BUN/Creatinine Ratio 22.7; Magnesium 2.1 mg/dL (1.6-2.6); Uric Acid 12.2 mg/dL (3.5-7.2)
[2019-01-15 17:36] LABS: Band Neutrophils % (manual) 5; Eosinophils % (manual) 4 (0-7); Lymphocytes % (manual) 5 (10.0-50.0); Monocytes % (manual) 4 (0-12); Myelocytes % 1
== END | disposition home or self-care (01) ==
LOC: CHF HDHVI 10:07
PROVIDERS: ATTEND Internal Medicine Cardiovascular Disease
DX: I11.0 Hypertensive heart disease with heart failure (principal); I50.42 Chronic combined systolic (congestive) and diastolic (congestive) heart failure; E83.40 Disorders of magnesium metabolism, unspecified; D51.9 Vitamin B12 deficiency anemia, unspecified; D64.9 Anemia, unspecified; M10.9 Gout, unspecified; R53.83 Other fatigue; E78.5 Hyperlipidemia, unspecified; F32.9 Major depressive disorder, single episode, unspecified; E66.01 Morbid (severe) obesity due to excess calories; I25.2 Old myocardial infarction; E11.40 Type 2 diabetes mellitus with diabetic neuropathy, unspecified; E11.21 Type 2 diabetes mellitus with diabetic nephropathy; I25.10 Atherosclerotic heart disease of native coronary artery without angina pectoris; J44.9 Chronic obstructive pulmonary disease, unspecified; E66.9 Obesity, unspecified; Z99.81 Dependence on supplemental oxygen; Z79.891 Long term (current) use of opiate analgesic; Z87.891 Personal history of nicotine dependence; Z85.01 Personal history of malignant neoplasm of esophagus; Z85.46 Personal history of malignant neoplasm of prostate; Z95.810 Presence of automatic (implantable) cardiac defibrillator
CPT/HCPCS: 36415; 80048; 82607; 83735; 83880; 84550; 85007; 85027; 96372; G0463; J1642; J3420

== ENCOUNTER → 2019-01-24 | Outpatient (CLI) | payer MEDICARE, OTHER ==
[~2019-01-24] MED LIST changes: -CYANOCOBALAMIN (B-12) 1000 MCG/1 ML VIAL IM ONE; -CYANOCOBALAMIN (B-12) 1000 MCG/1 ML VIAL ONE
[2019-01-24 11:14] VITALS: BP 105/76
--- NOTE | 2019-01-24 11:14 | NUR ---
CHF PT ARRIVED TO CLINIC A/O X 3 0 DISTRESS, V/S OBTAINED LABS REVIEWED
[2019-01-24 12:25] VITALS: BP 124/52
--- NOTE | 2019-01-24 12:25 | NUR ---
Discharge Instructions See e-MAR for any mediations given with this visit. Patient education given on disease process. Patient verbalized understanding. Previous labs reviewed. Patient discharged in stable condition with after care instructions and follow up appointment. MEDICATIONS 1215 HEPARIN 150 UNITS IVP X 3 TO PICC LINES. USED TWO 500 SYRINGES WASTED 350 OF ONE 500 ML SYRINGE
[2019-01-24 16:46] LABS: Mean Corpuscular Hgb Conc. 32.9 g/dL (32.0-36.0); White Blood Cell 11.2 10^3/uL (4.4-10.8)
[2019-01-24 16:48] LABS: Hematocrit 28.5 % (41.0-53.0); Hemoglobin 9.4 g/dL (13.5-17.5); Mean Corpuscular Hemoglobin 34.2 pg (28.0-32.0); Mean Corpuscular Volume 103.8 fL (80.0-100.0); Platelet Count (auto) 233 10^3/uL (140-450); Red Blood Cells 2.74 10^6/uL (4.5-5.90); Red Cell Distribution Width 16.2 % (11.8-14.3)
[2019-01-24 17:00] LABS: Band Neutrophils % (manual) 0; Basophils % (manual) 0 (0.0-2.0); Blast Cells 0; Promyelocytes % 0; Reactive Lymphocytes 0
[2019-01-24 17:09] LABS: Potassium 4.4 mmol/L (3.5-5.1)
[2019-01-24 17:29] LABS: Eosinophils % (manual) 2 (0-7); Lymphocytes % (manual) 8 (10.0-50.0); Metamyelocytes % 1; Monocytes % (manual) 3 (0-12); Myelocytes % 2
== END | disposition home or self-care (01) ==
LOC: CHF HDHVI 11:20
PROVIDERS: ATTEND Internal Medicine Cardiovascular Disease
DX: I11.0 Hypertensive heart disease with heart failure (principal); I50.9 Heart failure, unspecified; I27.21 Secondary pulmonary arterial hypertension; R94.4 Abnormal results of kidney function studies; D64.9 Anemia, unspecified; I50.42 Chronic combined systolic (congestive) and diastolic (congestive) heart failure; I25.10 Atherosclerotic heart disease of native coronary artery without angina pectoris; J44.9 Chronic obstructive pulmonary disease, unspecified; E78.5 Hyperlipidemia, unspecified; E66.01 Morbid (severe) obesity due to excess calories; F32.9 Major depressive disorder, single episode, unspecified; I25.2 Old myocardial infarction; E11.21 Type 2 diabetes mellitus with diabetic nephropathy; E11.40 Type 2 diabetes mellitus with diabetic neuropathy, unspecified; Z87.891 Personal history of nicotine dependence; Z99.81 Dependence on supplemental oxygen; Z79.891 Long term (current) use of opiate analgesic; Z85.01 Personal history of malignant neoplasm of esophagus; Z85.46 Personal history of malignant neoplasm of prostate; Z95.810 Presence of automatic (implantable) cardiac defibrillator; Z79.899 Other long term (current) drug therapy
CPT/HCPCS: 36415; 82565; 83880; 84132; 84520; 85007; 85027; G0463; J1642

== ENCOUNTER → 2019-01-29 | Outpatient (CLI) | payer MEDICARE, OTHER ==
[~2019-01-29] MED LIST changes: +CYANOCOBALAMIN (B-12) 1000 MCG/1 ML VIAL IM ONE; +CYANOCOBALAMIN (B-12) 1000 MCG/1 ML VIAL ONE
[2019-01-29 14:25] VITALS: BP 120/61
--- NOTE | 2019-01-29 14:25 | NUR ---
CHF PT ARRIVED AT THE CHF CLINIC IN 0 DISTRESS, V/S OBTAINED LABS DRAWN
[2019-01-29 15:00] VITALS: BP 109/61
--- NOTE | 2019-01-29 15:00 | NUR ---
PICC Line Dressing Changes PICC line dressing change done with a sterile technique. Cleansed with chloraprep scrub/betadine. Stat lock, and bio-patch as available. Occlusive dressing applied. Changed claves weekly and post lab draw. See e-MAR for medications given during this visit.
--- NOTE | 2019-01-29 15:00 | NUR ---
Discharge Instructions See e-MAR for any mediations given with this visit. Patient education given on disease process. Patient verbalized understanding. Previous labs reviewed. Patient discharged in stable condition with after care instructions and follow up appointment. MEDICATIONS 1453 VITAMIN B12 1000MCG/KG/MIN 1435 HEPARIN 150 UNITS IVP X 3 TO TL PICC LINE
[2019-01-29 16:03] LABS: Hematocrit 31.8 % (41.0-53.0); Hemoglobin 10.4 g/dL (13.5-17.5); Mean Corpuscular Hemoglobin 33.6 pg (28.0-32.0); Mean Corpuscular Hgb Conc. 32.8 g/dL (32.0-36.0); Mean Corpuscular Volume 102.4 fL (80.0-100.0); Platelet Count (auto) 267 10^3/uL (140-450); Red Cell Distribution Width 16.4 % (11.8-14.3); White Blood Cell 10.8 10^3/uL (4.4-10.8)
[2019-01-29 16:07] LABS: Basophils % (manual) 0 (0.0-2.0); Blast Cells 0; Metamyelocytes % 0; Myelocytes % 0; Promyelocytes % 0; Reactive Lymphocytes 0
[2019-01-29 16:20] LABS: BUN/Creatinine Ratio 27.4; Calcium 8.9 mg/dL (8.5-10.1); Magnesium 2.3 mg/dL (1.6-2.6)
[2019-01-29 16:56] LABS: Band Neutrophils % (manual) 1; Eosinophils % (manual) 4 (0-7); Lymphocytes % (manual) 6 (10.0-50.0); Monocytes % (manual) 6 (0-12)
== END | disposition home or self-care (01) ==
LOC: CHF HDHVI 14:42
PROVIDERS: ATTEND Internal Medicine Cardiovascular Disease
DX: I11.0 Hypertensive heart disease with heart failure (principal); I50.23 Acute on chronic systolic (congestive) heart failure; I50.32 Chronic diastolic (congestive) heart failure; E83.40 Disorders of magnesium metabolism, unspecified; D64.9 Anemia, unspecified; E11.36 Type 2 diabetes mellitus with diabetic cataract; I25.10 Atherosclerotic heart disease of native coronary artery without angina pectoris; I48.2 Chronic atrial fibrillation; I25.2 Old myocardial infarction; I27.21 Secondary pulmonary arterial hypertension; J44.9 Chronic obstructive pulmonary disease, unspecified; E78.5 Hyperlipidemia, unspecified; F32.9 Major depressive disorder, single episode, unspecified; E66.01 Morbid (severe) obesity due to excess calories; Z68.42 Body mass index [BMI] 45.0-49.9, adult; Z79.899 Other long term (current) drug therapy; Z95.810 Presence of automatic (implantable) cardiac defibrillator; Z99.81 Dependence on supplemental oxygen; Z85.46 Personal history of malignant neoplasm of prostate; Z79.891 Long term (current) use of opiate analgesic; Z85.810 Personal history of malignant neoplasm of tongue; Z85.01 Personal history of malignant neoplasm of esophagus
CPT/HCPCS: 36415; 80048; 83735; 83880; 85007; 85027; 96372; G0463; J1642; J3420; 96523

== ENCOUNTER → 2019-02-05 | Outpatient (CLI) | payer MEDICARE, OTHER ==
[~2019-02-05] MED LIST changes: -CYANOCOBALAMIN (B-12) 1000 MCG/1 ML VIAL IM ONE; -CYANOCOBALAMIN (B-12) 1000 MCG/1 ML VIAL ONE
[2019-02-05 09:55] VITALS: BP_SYST 145
--- NOTE | 2019-02-05 10:20 | NUR ---
IN TO CLINIC WITH CONCERNS OVER PICC LINE. PT REPORTS THAT PICC LINE WAS LEAKING AFTER DRESSING CHANGE YESTERDAY . REPORTS THAT HOME HEALTH CHANGED DRESSING AT 5 PM AND THEN HAD TO COME BACK AT 9 PM TO CHANGE SATURATED DRESSING. PT STATES THAT HOME HEALTH NURSE INITIALLY MENTIONED THAT "LINE MAY BE 'CUT" BUT SHOULD BE FINE. UPON PRESENTATION TO CLINIC DRESSING IS DRY AND INTACT. PT STATES WHITE PORT IS ONE THAT "DO NOT USE". ATTEMPTED TO ASPIRATE BLOOD AND MANIPULATE THE INSERTION SITE BUT UNABLE TO DRAW BLOOD BACK. BUT FLUSHED SLOWLY WHILE OBSERVED INTACT DRESSING. NO LEAKING FROM DRESSING NOTED, EVEN FROM WHERE TRIPLE LUMENS GO UNDER DRESSING FILM. SLOW FLUSHING OCCURRED, NOTED TO HAVE SALINE BUILDUP UNDER DRESSING AT INSERTION SIDE. UNABLE TO EXACTLY IDENTIFY SOURCE OF LEAK, BUT DEFINITELY LEAKING . ORDERS WRITTEN AND FAXED TO [facility] PER PTS REQUEST. Discharge Instructions See e-MAR for any mediations given with this visit. Patient education given on disease process. Patient verbalized understanding. Previous labs reviewed. Patient discharged in stable condition with after care instructions and follow up appointment.
--- NOTE | 2019-02-05 10:22 | NUR ---
DISCHARGED TO CARE OF SON IN NO DISTRESS OR DISCOMFORT, WITH ORDERS FAXED TO [facility] FOR REPLACEMENT. TO FOLLOWUP SOON POSSIBLE AFTER PICC REPLACED.
== END | disposition home or self-care (01) ==
LOC: CHF HDHVI 09:59
PROVIDERS: ATTEND Internal Medicine Cardiovascular Disease
DX: I25.10 Atherosclerotic heart disease of native coronary artery without angina pectoris (principal); I11.0 Hypertensive heart disease with heart failure; I50.9 Heart failure, unspecified
CPT/HCPCS: G0463

== ENCOUNTER → 2019-02-14 | Outpatient (CLI) | payer MEDICARE, OTHER ==
[~2019-02-14] MED LIST changes: +CYANOCOBALAMIN (B-12) 1000 MCG/1 ML VIAL IM ONE; +CYANOCOBALAMIN (B-12) 1000 MCG/1 ML VIAL ONE; +LIDOCAINE VISCOUS 2% 15ML UD MT PRN; +LIDOCAINE VISCOUS 2% 15ML UD ONE
--- NOTE | 2019-02-14 11:30 | NUR ---
PT. TO CHF/PAH CLINIC FOR EVAL. AND TX. SON WITH PT. FOR SUPPORT. PT. IS SCHEDULED FOR CT, AND PET SCAN DUE TO RECENT DX OF LINGUAL CARCINOMA AT [facility], AND REFERRED TO [facility] FOR FOLLOW UP TX DUE TO MULTIPLE CO-MORBIDITIES. PT. C/O PAIN IN MOUTH AND TONGUE, UNABLE TO WEAR LOWER DENTURES AND DECREASED APPETITE WITH 6 LB. WT LOSS SINCE LAST VISIT. SEE ASSESS. MD ORDERS RECEIVED AND CARRIED OUT.
[2019-02-14 11:40] VITALS: BP 104/59
--- NOTE | 2019-02-14 12:00 | NUR ---
LABS DRAWN AND SENT PER MD ORDER.
--- NOTE | 2019-02-14 12:17 | NUR ---
PT. MEDICATED WITH VIT. B12 1000MCG IM LFT DELT PER MD ORDER.
--- NOTE | 2019-02-14 12:25 | NUR ---
PT. MEDICATED WITH 30 MLS VISCOUS LIDOCAINE PO, GENTLE SWISH AND SWALLOW PER MD ORDER.
--- NOTE | 2019-02-14 13:00 | NUR ---
PT STATES MOUTH FEELING MUCH AFTER VISCOUS LIDOCAINE.
[2019-02-14 13:05] VITALS: BP 108/55
--- NOTE | 2019-02-14 13:05 | NUR ---
Discharge Instructions See e-MAR for any mediations given with this visit. Patient education given on disease process. Patient verbalized understanding. Previous labs reviewed. Patient discharged in stable condition with after care instructions and follow up appointment. PT AND SON GIVEN RX FROM DR. WU FOR DURAGESIC 50 MCG PATCH WITH INSTRUCTIONS AND POTENTIAL S.E. RX FOR VISCOUS LIDOCAINE CALLED INTO PHARMACY PER MD ORDER. WILL GET COPIES OF LABS AND PET SCAN REPORTS FOR DR. WU. FOLLOW UP PER MD APPT.
[2019-02-14 15:54] LABS: Magnesium 2.3 mg/dL (1.6-2.6); Potassium 4.6 mmol/L (3.5-5.1)
[2019-02-14 16:14] LABS: Hematocrit 30.2 % (41.0-53.0); Mean Corpuscular Hemoglobin 33.1 pg (28.0-32.0); Mean Corpuscular Hgb Conc. 33.1 g/dL (32.0-36.0); Mean Corpuscular Volume 99.9 fL (80.0-100.0); Platelet Count (auto) 259 10^3/uL (140-450); Red Blood Cells 3.03 10^6/uL (4.5-5.90); Red Cell Distribution Width 17.1 % (11.8-14.3); White Blood Cell 11.5 10^3/uL (4.4-10.8)
[2019-02-14 16:17] LABS: Band Neutrophils % (manual) 0; Basophils % (manual) 0 (0.0-2.0); Blast Cells 0; Promyelocytes % 0; Reactive Lymphocytes 0
[2019-02-14 20:17] LABS: Eosinophils % (manual) 5 (0-7); Lymphocytes % (manual) 6 (10.0-50.0); Metamyelocytes % 2; Monocytes % (manual) 2 (0-12); Myelocytes % 2
== END | disposition home or self-care (01) ==
LOC: CHF HDHVI 11:16
PROVIDERS: ATTEND Internal Medicine Cardiovascular Disease
DX: C02.9 Malignant neoplasm of tongue, unspecified (principal); I11.0 Hypertensive heart disease with heart failure; I50.23 Acute on chronic systolic (congestive) heart failure; I50.32 Chronic diastolic (congestive) heart failure; E87.6 Hypokalemia; E83.40 Disorders of magnesium metabolism, unspecified; R94.4 Abnormal results of kidney function studies; I25.10 Atherosclerotic heart disease of native coronary artery without angina pectoris; I27.21 Secondary pulmonary arterial hypertension; I48.2 Chronic atrial fibrillation; I42.9 Cardiomyopathy, unspecified; I25.2 Old myocardial infarction; J44.9 Chronic obstructive pulmonary disease, unspecified; E11.21 Type 2 diabetes mellitus with diabetic nephropathy; E78.5 Hyperlipidemia, unspecified; F32.9 Major depressive disorder, single episode, unspecified; E11.40 Type 2 diabetes mellitus with diabetic neuropathy, unspecified; D64.9 Anemia, unspecified; E66.01 Morbid (severe) obesity due to excess calories; Z79.899 Other long term (current) drug therapy; Z95.810 Presence of automatic (implantable) cardiac defibrillator; Z79.891 Long term (current) use of opiate analgesic; Z87.891 Personal history of nicotine dependence; Z68.42 Body mass index [BMI] 45.0-49.9, adult; Z99.81 Dependence on supplemental oxygen
CPT/HCPCS: 36415; 82565; 83735; 83880; 84132; 84520; 85007; 85027; 96372; G0463; J1642; J3420; 96374

== ENCOUNTER → 2019-02-22 | Outpatient (CLI) | payer MEDICARE, OTHER ==
[~2019-02-22] MED LIST changes: -CYANOCOBALAMIN (B-12) 1000 MCG/1 ML VIAL IM ONE; -CYANOCOBALAMIN (B-12) 1000 MCG/1 ML VIAL ONE; -LIDOCAINE VISCOUS 2% 15ML UD MT PRN; -LIDOCAINE VISCOUS 2% 15ML UD ONE
--- NOTE | 2019-02-22 11:20 | NUR ---
CHF PT ARRIVED AT THE CHF CLINIC FOR PAH/CHF THERAPY. PACEMAKER CHECK/ V/S OBTAINED PT IN 0 DISTRESS, A/O X 3
--- NOTE | 2019-02-22 12:31 | NUR ---
CARDIO PACEMAKER CHECK COMPLETE PT IS IN AFIB AT CONTROLLED RATE
[2019-02-22 12:45] VITALS: BP 137/62
--- NOTE | 2019-02-22 12:45 | NUR ---
Discharge Instructions See e-MAR for any mediations given with this visit. Patient education given on disease process. Patient verbalized understanding. Previous labs reviewed. Patient discharged in stable condition with after care instructions and follow up appointment. 1220 MEDICATIONS HEPARIN 300 UNITS IVP X1
[2019-02-22 16:21] LABS: Eosinophils # (auto) 0.5 uL; Hemoglobin 8.8 g/dL (13.5-17.5); Lymphocytes # (auto) 0.4 uL; Monocytes # (auto) 0.8 uL
[2019-02-22 16:24] LABS: Potassium 4.7 mmol/L (3.5-5.1)
[2019-02-22 16:25] LABS: Basophils # (auto) 0.1 uL; Basophils % (auto) 1.2 % (0.0-2.0); Eosinophils % (auto) 4.5 % (0.0-7.0); Lymphocytes % (auto) 3.2 % (10.0-50.0); Mean Corpuscular Hemoglobin 34.5 pg (28.0-32.0); Mean Corpuscular Hgb Conc. 33.8 g/dL (32.0-36.0); Mean Corpuscular Volume 102.1 fL (80.0-100.0); Monocytes % (auto) 6.9 % (0.0-12.0); Neutrophils # (auto) 9.4 uL; Neutrophils % (auto) 84.2 % (37.0-80.0); Platelet Count (auto) 232 10^3/uL (140-450); Red Blood Cells 2.55 10^6/uL (4.5-5.90); Red Cell Distribution Width 17.8 % (11.8-14.3); White Blood Cell 11.2 10^3/uL (4.4-10.8)
== END | disposition home or self-care (01) ==
LOC: CHF HDHVI 12:22
PROVIDERS: ATTEND Internal Medicine Cardiovascular Disease
DX: I11.0 Hypertensive heart disease with heart failure (principal); I50.23 Acute on chronic systolic (congestive) heart failure; D64.9 Anemia, unspecified; E78.5 Hyperlipidemia, unspecified; R94.4 Abnormal results of kidney function studies; I50.32 Chronic diastolic (congestive) heart failure; I25.10 Atherosclerotic heart disease of native coronary artery without angina pectoris; I48.2 Chronic atrial fibrillation; J44.9 Chronic obstructive pulmonary disease, unspecified; F32.9 Major depressive disorder, single episode, unspecified; E66.01 Morbid (severe) obesity due to excess calories; I25.2 Old myocardial infarction; E11.21 Type 2 diabetes mellitus with diabetic nephropathy; E11.40 Type 2 diabetes mellitus with diabetic neuropathy, unspecified; Z99.81 Dependence on supplemental oxygen; Z79.891 Long term (current) use of opiate analgesic; Z85.810 Personal history of malignant neoplasm of tongue; Z87.891 Personal history of nicotine dependence; Z79.899 Other long term (current) drug therapy; Z95.810 Presence of automatic (implantable) cardiac defibrillator; Z85.46 Personal history of malignant neoplasm of prostate; Z85.01 Personal history of malignant neoplasm of esophagus; Z68.42 Body mass index [BMI] 45.0-49.9, adult
CPT/HCPCS: 36415; 82565; 83880; 84132; 84520; 85025; G0463; J1642

== ENCOUNTER → 2019-02-26 | Outpatient (CLI) | payer MEDICARE, OTHER ==
[~2019-02-26] MED LIST changes: +MVI in SODIUM CHLORIDE 0.9% 1,010 ML ONE; +MVI in SODIUM CHLORIDE 0.9% 500 ML IVB ONE
--- NOTE | 2019-02-26 11:15 | NUR ---
Initial PICC Line PICC line aminta assessed before access for ordered medications per MD. Port accessed per protocol flushed with 10 ml 0.9% NS prior to administration of ordered medication. See e-MAR for medications given during this visit. Labs drawn from PICC line.
[2019-02-26 14:00] VITALS: BP 101/67
--- NOTE | 2019-02-26 14:00 | NUR ---
TOLERATED INFUSION WELL. COMPLETED MVI BAG WITHOUT INCIDENT. RIGHT ARM PICC HEPARINIZED AND SITE BENIGN POST INFUSION. DISCHARGED TO SELF CARE WITHOUT DISTRESS OR WITHOUT DISCOMFORT. MEDICATION ADMINISTRATION MVI BAG 500 ML START AT 1118-STOP AT 1400 HEPARIN 150 UNITS IVP X 2 PICC LINE
[2019-02-26 16:01] LABS: Basophils # (auto) 0.1 uL; Basophils % (auto) 1.2 % (0.0-2.0); Eosinophils # (auto) 0.3 uL; Eosinophils % (auto) 2.6 % (0.0-7.0); Hematocrit 30.3 % (41.0-53.0); Hemoglobin 9.8 g/dL (13.5-17.5); Lymphocytes # (auto) 0.3 uL; Lymphocytes % (auto) 2.5 % (10.0-50.0); Mean Corpuscular Hemoglobin 32.6 pg (28.0-32.0); Mean Corpuscular Hgb Conc. 32.4 g/dL (32.0-36.0); Mean Corpuscular Volume 100.8 fL (80.0-100.0); Monocytes # (auto) 0.8 uL; Monocytes % (auto) 6.5 % (0.0-12.0); Neutrophils # (auto) 10.2 uL; Neutrophils % (auto) 87.2 % (37.0-80.0); Platelet Count (auto) 266 10^3/uL (140-450); Red Cell Distribution Width 17.6 % (11.8-14.3); White Blood Cell 11.6 10^3/uL (4.4-10.8)
[2019-02-26 16:04] LABS: Albumin 3.9 g/dL (3.4-5.0); Calcium 8.9 mg/dL (8.5-10.1); Potassium 4.7 mmol/L (3.5-5.1)
[2019-02-26 16:06] LABS: BUN/Creatinine Ratio 27.3
[2019-02-26 16:09] LABS: Bilirubin, Total 0.7 mg/dL (0.2-1.0); Total Protein 8.8 g/dL (6.4-8.2)
== END | disposition home or self-care (01) ==
LOC: CHF HDHVI 10:52
PROVIDERS: ATTEND Internal Medicine Cardiovascular Disease
DX: I13.0 Hypertensive heart and chronic kidney disease with heart failure and stage 1 through stage 4 chronic kidney disease, or unspecified chronic kidney disease (principal); E11.22 Type 2 diabetes mellitus with diabetic chronic kidney disease; I50.23 Acute on chronic systolic (congestive) heart failure; I50.32 Chronic diastolic (congestive) heart failure; N18.9 Chronic kidney disease, unspecified; D64.9 Anemia, unspecified; R06.02 Shortness of breath; R53.83 Other fatigue; E86.0 Dehydration; E83.40 Disorders of magnesium metabolism, unspecified; I25.10 Atherosclerotic heart disease of native coronary artery without angina pectoris; I48.2 Chronic atrial fibrillation; E11.36 Type 2 diabetes mellitus with diabetic cataract; E11.40 Type 2 diabetes mellitus with diabetic neuropathy, unspecified; J44.9 Chronic obstructive pulmonary disease, unspecified; F32.9 Major depressive disorder, single episode, unspecified; E66.01 Morbid (severe) obesity due to excess calories; I25.2 Old myocardial infarction; I27.21 Secondary pulmonary arterial hypertension; Z99.81 Dependence on supplemental oxygen; Z79.891 Long term (current) use of opiate analgesic; Z87.891 Personal history of nicotine dependence; Z68.42 Body mass index [BMI] 45.0-49.9, adult; Z95.810 Presence of automatic (implantable) cardiac defibrillator; Z85.46 Personal history of malignant neoplasm of prostate; Z85.01 Personal history of malignant neoplasm of esophagus; Z85.810 Personal history of malignant neoplasm of tongue
CPT/HCPCS: 36415; 80053; 83735; 83880; 85025; 96365; 96366; G0463; J1642; J3411; J3475

== ENCOUNTER → 2019-03-06 | Outpatient (CLI) | payer MEDICARE, OTHER ==
[2019-03-06 15:49] LABS: Basophils # (auto) 0.2 uL; Basophils % (auto) 1.4 % (0.0-2.0); Eosinophils # (auto) 0.5 uL; Eosinophils % (auto) 4.1 % (0.0-7.0); Hematocrit 30.7 % (41.0-53.0); Lymphocytes # (auto) 0.3 uL; Mean Corpuscular Hgb Conc. 32.6 g/dL (32.0-36.0); Mean Corpuscular Volume 98.4 fL (80.0-100.0); Monocytes # (auto) 1.2 uL; Monocytes % (auto) 10.2 % (0.0-12.0); Neutrophils # (auto) 9.4 uL; Neutrophils % (auto) 81.3 % (37.0-80.0); Platelet Count (auto) 269 10^3/uL (140-450); Red Blood Cells 3.12 10^6/uL (4.5-5.90); Red Cell Distribution Width 17.7 % (11.8-14.3); White Blood Cell 11.6 10^3/uL (4.4-10.8)
[2019-03-06 15:57] VITALS: BP 121/61
[2019-03-06 15:58] LABS: Potassium 4.3 mmol/L (3.5-5.1)
--- NOTE | 2019-03-06 15:58 | NUR ---
IN TO CLINIC FOR FOLLOWUP.. AWAKE AND ALERT. VS WNL. RIGHT ARM PICC LINE FLUSHED AND HEPARINIZED AND LESS RESISTANCE NOTED AND FAMILY REINSTRUCTED ON NEED FOR HEPARIN WITH PICC LINE. REPEAT BACK INSTRUCTIONS OBTAINED. CLINIC PROVIDER CONSULTED AND ORDERS RECIEVED AND CARRIED OUT. DISCHARGED TO CARE OF ULTRASOUND WITHOUT DISTRESS AND WITHOUT DISCOMFORT. LABS REVIEWED . LABS DRAWN PERIPHERALLY AND SENT. MEDICATION ADMINISTRATION MVI BAG 500 ML START AT 1600STOP AT 1700 HEPARIN 150 UNITS IVP AT 1600 TO PICC LINE
[2019-03-06 16:02] LABS: BUN/Creatinine Ratio 24.3; Magnesium 2.3 mg/dL (1.6-2.6)
== END | disposition home or self-care (01) ==
LOC: Rad HDHVI 14:21
PROVIDERS: ATTEND Internal Medicine Cardiovascular Disease
DX: I42.0 Dilated cardiomyopathy (principal); C15.9 Malignant neoplasm of esophagus, unspecified; C06.9 Malignant neoplasm of mouth, unspecified; I11.0 Hypertensive heart disease with heart failure; I50.42 Chronic combined systolic (congestive) and diastolic (congestive) heart failure; E83.40 Disorders of magnesium metabolism, unspecified; D64.9 Anemia, unspecified; I25.10 Atherosclerotic heart disease of native coronary artery without angina pectoris; I25.2 Old myocardial infarction; I48.2 Chronic atrial fibrillation; J44.9 Chronic obstructive pulmonary disease, unspecified; E11.21 Type 2 diabetes mellitus with diabetic nephropathy; E11.40 Type 2 diabetes mellitus with diabetic neuropathy, unspecified; E78.5 Hyperlipidemia, unspecified; F32.9 Major depressive disorder, single episode, unspecified; E66.01 Morbid (severe) obesity due to excess calories; Z79.899 Other long term (current) drug therapy; Z87.891 Personal history of nicotine dependence; Z95.810 Presence of automatic (implantable) cardiac defibrillator; Z99.81 Dependence on supplemental oxygen; Z79.891 Long term (current) use of opiate analgesic; Z68.42 Body mass index [BMI] 45.0-49.9, adult
CPT/HCPCS: 36415; 80048; 83735; 83880; 85025; 93306; 96365; G0463; J1642; J3411; J3475

== ENCOUNTER → 2019-03-14 | Outpatient (CLI) | payer MEDICARE, OTHER ==
[~2019-03-14] MED LIST changes: +CYANOCOBALAMIN (B-12) 1000 MCG/1 ML VIAL IM ONE; +CYANOCOBALAMIN (B-12) 1000 MCG/1 ML VIAL ONE
[2019-03-14 10:30] VITALS: BP 95/49
[2019-03-14 11:00] VITALS: BP 106/54
[2019-03-14 11:30] VITALS: BP 99/54
[2019-03-14 12:05] LABS: BUN/Creatinine Ratio 31.4; Magnesium 2.2 mg/dL (1.6-2.6); Potassium 4.1 mmol/L (3.5-5.1)
[2019-03-14 12:12] LABS: Basophils # (auto) 0.2 uL; Basophils % (auto) 1.3 % (0.0-2.0); Eosinophils # (auto) 0.5 uL; Eosinophils % (auto) 3.8 % (0.0-7.0); Hematocrit 29.7 % (41.0-53.0); Hemoglobin 9.9 g/dL (13.5-17.5); Lymphocytes # (auto) 0.3 uL; Lymphocytes % (auto) 2.3 % (10.0-50.0); Mean Corpuscular Hemoglobin 32.7 pg (28.0-32.0); Mean Corpuscular Hgb Conc. 33.3 g/dL (32.0-36.0); Mean Corpuscular Volume 98.3 fL (80.0-100.0); Monocytes # (auto) 1.1 uL; Monocytes % (auto) 9.2 % (0.0-12.0); Neutrophils # (auto) 10.4 uL; Neutrophils % (auto) 83.4 % (37.0-80.0); Platelet Count (auto) 279 10^3/uL (140-450); Red Blood Cells 3.02 10^6/uL (4.5-5.90); Red Cell Distribution Width 18.9 % (11.8-14.3); White Blood Cell 12.4 10^3/uL (4.4-10.8)
[2019-03-14 13:03] VITALS: BP 117/66
== END | disposition home or self-care (01) ==
LOC: CHF HDHVI 10:06
PROVIDERS: ATTEND Internal Medicine Cardiovascular Disease
DX: I13.0 Hypertensive heart and chronic kidney disease with heart failure and stage 1 through stage 4 chronic kidney disease, or unspecified chronic kidney disease (principal); E11.22 Type 2 diabetes mellitus with diabetic chronic kidney disease; E11.21 Type 2 diabetes mellitus with diabetic nephropathy; E11.40 Type 2 diabetes mellitus with diabetic neuropathy, unspecified; E11.36 Type 2 diabetes mellitus with diabetic cataract; N18.9 Chronic kidney disease, unspecified; I50.42 Chronic combined systolic (congestive) and diastolic (congestive) heart failure; D64.9 Anemia, unspecified; I25.10 Atherosclerotic heart disease of native coronary artery without angina pectoris; I48.2 Chronic atrial fibrillation; J44.9 Chronic obstructive pulmonary disease, unspecified; E78.5 Hyperlipidemia, unspecified; F32.9 Major depressive disorder, single episode, unspecified; E66.01 Morbid (severe) obesity due to excess calories; I25.2 Old myocardial infarction; Z79.899 Other long term (current) drug therapy; Z87.891 Personal history of nicotine dependence; Z95.810 Presence of automatic (implantable) cardiac defibrillator; Z99.81 Dependence on supplemental oxygen; Z79.891 Long term (current) use of opiate analgesic; Z85.01 Personal history of malignant neoplasm of esophagus; Z85.818 Personal history of malignant neoplasm of other sites of lip, oral cavity, and pharynx; Z85.46 Personal history of malignant neoplasm of prostate; Z85.810 Personal history of malignant neoplasm of tongue
CPT/HCPCS: 36415; 80048; 83735; 83880; 85025; 93701; 96365; 96366; 96372; G0463; J1642; J3411; J3420; J3475

== ENCOUNTER → 2019-03-22 | Outpatient (CLI) | payer MEDICARE, OTHER ==
[~2019-03-22] MED LIST changes: -CYANOCOBALAMIN (B-12) 1000 MCG/1 ML VIAL IM ONE; -CYANOCOBALAMIN (B-12) 1000 MCG/1 ML VIAL ONE; -MVI in SODIUM CHLORIDE 0.9% 1,010 ML ONE
[2019-03-22 10:39] VITALS: BP 107/63
[2019-03-22 12:25] LABS: Hematocrit 26.5 % (41.0-53.0); Hemoglobin 8.8 g/dL (13.5-17.5); Mean Corpuscular Hemoglobin 32.5 pg (28.0-32.0); Mean Corpuscular Hgb Conc. 33.1 g/dL (32.0-36.0); Mean Corpuscular Volume 98.2 fL (80.0-100.0); Platelet Count (auto) 322 10^3/uL (140-450); Red Cell Distribution Width 18.8 % (11.8-14.3); White Blood Cell 13.1 10^3/uL (4.4-10.8)
--- NOTE | 2019-03-22 13:00 | NUR ---
PICC Line meds Medication completed per MD order. See e-MAR for medications given during this visit. Patient tolerated medication well. PICC line flushed per protocol.
[2019-03-22 13:05] VITALS: BP 103/51
--- NOTE | 2019-03-22 13:05 | NUR ---
CHF CLINIC Discharge Instructions See e-MAR for any mediations given with this visit. Patient education given on disease process. Patient verbalized understanding. Previous labs reviewed. Patient discharged in stable condition with after care instructions and follow up appointment. NOTE MVI IN NS [id number] ADMIN BY WHITNEY RICHARDSON HEPARIN ADMIN BY WHITNEY RICHARDSON LABS DRAWN FROM PICC LINE BY WHITNEY RICHARDSON
[2019-03-22 13:18] LABS: Potassium 4.2 mmol/L (3.5-5.1)
[2019-03-22 13:21] LABS: BUN/Creatinine Ratio 34.7
[2019-03-22 13:40] LABS: Basophils % (manual) 0 (0.0-2.0); Blast Cells 0; Promyelocytes % 0; Reactive Lymphocytes 0
[2019-03-22 18:59] LABS: Band Neutrophils % (manual) 5; Eosinophils % (manual) 3 (0-7); Lymphocytes % (manual) 6 (10.0-50.0); Metamyelocytes % 1; Monocytes % (manual) 3 (0-12); Myelocytes % 3
== END | disposition home or self-care (01) ==
LOC: CHF HDHVI 10:22
PROVIDERS: ATTEND Internal Medicine Cardiovascular Disease
DX: I13.0 Hypertensive heart and chronic kidney disease with heart failure and stage 1 through stage 4 chronic kidney disease, or unspecified chronic kidney disease (principal); E11.22 Type 2 diabetes mellitus with diabetic chronic kidney disease; I50.42 Chronic combined systolic (congestive) and diastolic (congestive) heart failure; N18.9 Chronic kidney disease, unspecified; D64.9 Anemia, unspecified; I27.21 Secondary pulmonary arterial hypertension; I25.2 Old myocardial infarction; I42.9 Cardiomyopathy, unspecified; R53.83 Other fatigue; I25.10 Atherosclerotic heart disease of native coronary artery without angina pectoris; I48.2 Chronic atrial fibrillation; J44.9 Chronic obstructive pulmonary disease, unspecified; E78.5 Hyperlipidemia, unspecified; F32.9 Major depressive disorder, single episode, unspecified; E11.21 Type 2 diabetes mellitus with diabetic nephropathy; Z68.42 Body mass index [BMI] 45.0-49.9, adult; E66.01 Morbid (severe) obesity due to excess calories; Z85.46 Personal history of malignant neoplasm of prostate; Z85.01 Personal history of malignant neoplasm of esophagus; Z79.891 Long term (current) use of opiate analgesic; Z79.899 Other long term (current) drug therapy; Z85.810 Personal history of malignant neoplasm of tongue; Z85.819 Personal history of malignant neoplasm of unspecified site of lip, oral cavity, and pharynx; Z87.891 Personal history of nicotine dependence; Z95.810 Presence of automatic (implantable) cardiac defibrillator
CPT/HCPCS: 36415; 80048; 83880; 85007; 85027; 96365; 96366; G0463; J1642

== ENCOUNTER → 2019-05-28 | Outpatient (CLI) | payer MEDICARE, OTHER ==
[~2019-05-28] MED LIST changes: +ACETAMINOPHEN 500 MG TAB PO ONE; -MVI in SODIUM CHLORIDE 0.9% 500 ML IVB ONE
[2019-05-28 11:00] VITALS: BP 140/66
--- NOTE | 2019-05-28 11:00 | NUR ---
CHF CLINIC Discharge Instructions See e-MAR for any mediations given with this visit. Patient education given on disease process. Patient verbalized understanding. Previous labs reviewed. Patient discharged in stable condition with after care instructions and follow up appointment. NOTE PATIENT CAME FOR FOLLOW UP AFTER SURGERY AT [facility].
[2019-05-28 12:04] LABS: Hemoglobin 10.9 g/dL (13.5-17.5)
[2019-05-28 12:06] LABS: Hematocrit 32.6 % (41.0-53.0); Mean Corpuscular Hemoglobin 34.1 pg (28.0-32.0); Mean Corpuscular Hgb Conc. 33.6 g/dL (32.0-36.0); Mean Corpuscular Volume 101.4 fL (80.0-100.0); Platelet Count (auto) 324 10^3/uL (140-450); Red Blood Cells 3.21 10^6/uL (4.5-5.90); Red Cell Distribution Width 19.3 % (11.8-14.3); White Blood Cell 11.7 10^3/uL (4.4-10.8)
[2019-05-28 12:21] LABS: Albumin 3.8 g/dL (3.4-5.0); Basophils % (manual) 0 (0.0-2.0); Blast Cells 0; Calcium 9.2 mg/dL (8.5-10.1); Magnesium 2.2 mg/dL (1.6-2.6); Metamyelocytes % 0; Myelocytes % 0; Potassium 4.2 mmol/L (3.5-5.1); Promyelocytes % 0; Reactive Lymphocytes 0
[2019-05-28 12:23] LABS: BUN/Creatinine Ratio 31.3
[2019-05-28 12:26] LABS: Bilirubin, Total 0.2 mg/dL (0.2-1.0)
[2019-05-28 13:19] LABS: Band Neutrophils % (manual) 2; Eosinophils % (manual) 1 (0-7); Lymphocytes % (manual) 4 (10.0-50.0); Monocytes % (manual) 6 (0-12)
== END | disposition home or self-care (01) ==
LOC: CHF HDHVI 10:55
PROVIDERS: ATTEND Internal Medicine Cardiovascular Disease
DX: D64.9 Anemia, unspecified (principal); I11.0 Hypertensive heart disease with heart failure; I50.23 Acute on chronic systolic (congestive) heart failure; E83.40 Disorders of magnesium metabolism, unspecified; K90.9 Intestinal malabsorption, unspecified
CPT/HCPCS: 36415; 80053; 82306; 83036; 83735; 83880; 85007; 85027; G0463

== ENCOUNTER → 2019-12-24 | Outpatient (CLI) | payer MEDICARE, OTHER ==
[~2019-12-24] MED LIST changes: -ACETAMINOPHEN 500 MG TAB PO ONE
[2019-12-24 11:50] LABS: Basophils # (auto) 0.1 10 ^3/uL (0-0.2); Eosinophils # (auto) 0.1 10 ^3/uL (0-0.8); Lymphocytes # (auto) 0.3 10 ^3/uL (0.4-5.4); Neutrophils # (auto) 5.1 10 ^3/uL (1.6-8.6); White Blood Cell 5.7 10^3/uL (4.4-10.8)
[2019-12-24 11:52] LABS: Basophils % (auto) 1.5 % (0.0-2.0); Eosinophils % (auto) 1.1 % (0.0-7.0); Hematocrit 27.2 % (41.0-53.0); Hemoglobin 9.2 g/dL (13.5-17.5); Lymphocytes % (auto) 5.9 % (10.0-50.0); Mean Corpuscular Hemoglobin 31.6 pg (28.0-32.0); Mean Corpuscular Hgb Conc. 33.9 g/dL (32.0-36.0); Mean Corpuscular Volume 93.2 fL (80.0-100.0); Monocytes # (auto) 0.2 10 ^3/uL (0-1.3); Monocytes % (auto) 2.7 % (0.0-12.0); Neutrophils % (auto) 88.8 % (37.0-80.0); Platelet Count (auto) 32 10^3/uL (140-450); Red Blood Cells 2.91 10^6/uL (4.5-5.90); Red Cell Distribution Width 16.5 % (11.8-14.3); Urine Blood 1+ /uL (Negative); Urine Specific Gravity 1.016 (1.001-1.035)
[2019-12-24 12:06] LABS: Albumin 3.2 g/dL (3.4-5.0); Potassium 4.4 mmol/L (3.5-5.1)
[2019-12-24 12:10] LABS: Free T4 (Free Thyroxine) 1.09 ng/dL (0.89-1.76); Prostate Specific Antigen 0.03 ng/mL (0.0-4.0)
[2019-12-24 12:12] LABS: BUN/Creatinine Ratio 20.4; Bilirubin, Total 0.7 mg/dL (0.2-1.0); Total Protein 8.1 g/dL (6.4-8.2)
== END | disposition home or self-care (01) ==
LOC: LAB 10:10
PROVIDERS: ATTEND Internal Medicine Cardiovascular Disease
DX: C61 Malignant neoplasm of prostate (principal); Z00.00 Encounter for general adult medical examination without abnormal findings; E03.9 Hypothyroidism, unspecified; K90.9 Intestinal malabsorption, unspecified; E29.1 Testicular hypofunction; N39.0 Urinary tract infection, site not specified; D51.9 Vitamin B12 deficiency anemia, unspecified; Z79.899 Other long term (current) drug therapy
CPT/HCPCS: 36415; 80053; 80061; 81003; 82306; 82607; 83036; 84153; 84403; 84439; 84443; 85025; 87086

== ENCOUNTER → 2020-01-20 | Outpatient (CLI) | payer MEDICARE, OTHER ==
[~2020-01-20] MED LIST changes: +MULT-733 PO; -MULTTAB PO
== END | disposition home or self-care (01) ==
LOC: Rad HDHVI 11:03
PROVIDERS: ATTEND Internal Medicine Cardiovascular Disease
DX: R00.2 Palpitations (principal); I50.23 Acute on chronic systolic (congestive) heart failure; R55 Syncope and collapse
CPT/HCPCS: 93306

== ENCOUNTER → 2020-07-07 | Outpatient (CLI) | payer MEDICARE, OTHER | END | disposition home or self-care (01) | LOC: Rad HDHVI 10:58 | PROVIDERS: ATTEND Internal Medicine Cardiovascular Disease | DX: I08.3 Combined rheumatic disorders of mitral, aortic and tricuspid valves (principal); I42.0 Dilated cardiomyopathy; I50.43 Acute on chronic combined systolic (congestive) and diastolic (congestive) heart failure; R42 Dizziness and giddiness | CPT/HCPCS: 93306 ==

== ENCOUNTER 2020-10-17 11:34 | Inpatient (IN) | payer MEDICARE, OTHER ==
[~2020-10-17] VITALS: Ht 165.1 cm; Wt 76.7 kg
[2020-10-17 12:47] LABS: Hematocrit 26.6 % (41.0-53.0); Hemoglobin 8.6 g/dL (13.5-17.5); Mean Corpuscular Hemoglobin 30.2 pg (28.0-32.0); Mean Corpuscular Hgb Conc. 32.3 g/dL (32.0-36.0); Mean Corpuscular Volume 93.5 fL (80.0-100.0); Platelet Count (auto) 418 10^3/uL (140-450); Red Blood Cells 2.85 10^6/uL (4.5-5.90); White Blood Cell 13.8 10^3/uL (4.4-10.8)
[2020-10-17 12:52] LABS: Red Cell Distribution Width 20.1 % (11.8-14.3)
[2020-10-17 12:55] LABS: Basophils % (manual) 0 (0.0-2.0); Blast Cells 0; Promyelocytes % 0; Reactive Lymphocytes 0
[2020-10-17 13:07] LABS: INR 1.1 (0.9-1.15); Partial Thromboplastin Time 30.5 sec (23.0-31.2)
[2020-10-17 13:12] LABS: Albumin 2.7 g/dL (3.4-5.0); Calcium 9.1 mg/dL (8.5-10.1); Magnesium 2.1 mg/dL (1.6-2.6)
[2020-10-17] MEDS ORDERED: AZITHROMYCIN 500MG/ 250ML 250 ML IV ONE (13:15)
[2020-10-17 13:19] LABS: BUN/Creatinine Ratio 36.2; Bilirubin, Total 0.8 mg/dL (0.2-1.0); Total Protein 7.5 g/dL (6.4-8.2)
[2020-10-17 13:37] LABS: Potassium 5.6 mmol/L (3.5-5.1)
[2020-10-17] MEDS ORDERED: PIPERACILLIN-TAZOB 3.375GM 100 ML IV ONE (14:30)
[2020-10-17 14:32] LABS: Band Neutrophils % (manual) 3; Eosinophils % (manual) 8 (0-7); Lymphocytes % (manual) 5 (10.0-50.0); Metamyelocytes % 4; Monocytes % (manual) 9 (0-12); Myelocytes % 1
[2020-10-17] MEDS ORDERED: InsuLIN REG 1unit/0.01ml Soln (100units/ml) IV ONE (14:45)
[2020-10-17] MEDS ORDERED: DEXTROSE (50%) 50ML SYRG IV ONE (14:45)
[2020-10-17] MEDS ORDERED: ONDANSETRON HCL 4 MG/2 ML VIAL IV ONE (14:45)
[2020-10-17] MEDS ORDERED: MORPHINE SULF INJ 2 MG/ML SYRINGE 1ML IV ONE (14:45)
[2020-10-17] MEDS ORDERED: FUROSEMIDE INJECTION 100 MG in SODIUM CHL 0.9% 100 ML IV ONE (15:00)
[2020-10-17] MEDS ORDERED: NITROGLYCERIN 0.4 MG SL TAB SL PRN (15:00)
[2020-10-17] MEDS ORDERED: DOBUTamine 1000MCG/ML 250 ML IV ONE (15:00)
[2020-10-17] MEDS ORDERED: MORPHINE SULF INJ 2 MG/ML SYRINGE 1ML IV PRN (15:00)
[2020-10-17] MEDS ORDERED: DOBUTamine 1000MCG/ML 250 ML IV SCH (18:15)
[2020-10-17 21:00] VITALS: BP 112/56
[2020-10-17] MEDS ORDERED: SUCCINYLCHOLINE CHLORIDE 20 MG/ML 10ML VIAL IV ONE (21:01)
[2020-10-17] MEDS ORDERED: ETOMIDATE (2MG/ML) 20ML VIAL IV ONE (21:01)
[2020-10-17] MEDS ORDERED: PROPOFOL 100 ML IV SCH (21:45)
[2020-10-17] MEDS ORDERED: fentaNYL Drip 2500mCg/250mlNS 250 ML IV SCH (21:45)
== END 2020-10-17 22:09 | DRG 146 ==
LOC: ER 11:34 → TELE 14:58
PROVIDERS: ADMIT Internal Medicine Cardiovascular Disease; ATTEND Internal Medicine Cardiovascular Disease
PROC: 5A12012 Performance of Cardiac Output, Single, Manual (ICD-10-PCS; principal; 2020-10-17)
PROC: 0BH17EZ Insertion of Endotracheal Airway into Trachea, Via Natural or Artificial Opening (ICD-10-PCS; 2020-10-17)
DX: C14.0 Malignant neoplasm of pharynx, unspecified (principal); J96.00 Acute respiratory failure, unspecified whether with hypoxia or hypercapnia; J18.9 Pneumonia, unspecified organism; J44.0 Chronic obstructive pulmonary disease with (acute) lower respiratory infection; I50.22 Chronic systolic (congestive) heart failure; I11.0 Hypertensive heart disease with heart failure; D63.8 Anemia in other chronic diseases classified elsewhere; E03.9 Hypothyroidism, unspecified; E11.9 Type 2 diabetes mellitus without complications; E87.5 Hyperkalemia; I25.10 Atherosclerotic heart disease of native coronary artery without angina pectoris; I46.9 Cardiac arrest, cause unspecified; F32.9 Major depressive disorder, single episode, unspecified; R57.0 Cardiogenic shock; Z79.4 Long term (current) use of insulin; Z85.819 Personal history of malignant neoplasm of unspecified site of lip, oral cavity, and pharynx; Z92.21 Personal history of antineoplastic chemotherapy; Z92.3 Personal history of irradiation; Z93.1 Gastrostomy status; Z95.810 Presence of automatic (implantable) cardiac defibrillator; Z79.899 Other long term (current) drug therapy; I25.2 Old myocardial infarction
CPT/HCPCS: 31500; 36415; 51702; 71045; 80053; 82962; 83605; 83735; 83880; 84484; 85007; 85027; 85610; 85730; 87040; 87426; 92950; 93005; 96365; 96366; 96367; 96368; 96375; G0378; J0330; J2405; J2543; J2704